=== PATIENT | female | born 1960 | race American Indian/Alaskan Native ===

== ENCOUNTER 2017-06-28 10:12 | Outpatient (CLI) | payer MEDICARE ==
[2017-06-28] MEDS ORDERED: XYLOCAINE TOPICAL 4% TP ONE ×2 (11:29→12:00)
[2017-06-28] MEDS ORDERED: SILVER NITRATE TP ONE ×2 (12:10→13:04)
== END 2017-06-28 10:13 | disposition home or self-care (01) ==
LOC: WOUND 10:12
PROVIDERS: ATTEND Surgery
DX: E11.621 Type 2 diabetes mellitus with foot ulcer (principal); L97.422 Non-pressure chronic ulcer of left heel and midfoot with fat layer exposed; L97.521 Non-pressure chronic ulcer of other part of left foot limited to breakdown of skin; E11.622 Type 2 diabetes mellitus with other skin ulcer; L97.211 Non-pressure chronic ulcer of right calf limited to breakdown of skin; I70.232 Atherosclerosis of native arteries of right leg with ulceration of calf; E11.22 Type 2 diabetes mellitus with diabetic chronic kidney disease; I12.0 Hypertensive chronic kidney disease with stage 5 chronic kidney disease or end stage renal disease; N18.6 End stage renal disease; Z90.710 Acquired absence of both cervix and uterus; Z99.2 Dependence on renal dialysis
CPT/HCPCS: 11042; 11045; 97597; 97598; G0463

== ENCOUNTER 2017-10-12 14:24 | Inpatient (IN) | payer MEDICARE, OTHER ==
--- NOTE | 2017-10-12 15:22 | Emergency Department Report ---
HPI - General Chief Complaint: Altered Mental Status Time Seen by Provider: 10/12/17 14:56 - HPI HPI: 57-year-old female presents to the emergency department via EMS from her dialysis clinic with complaint of altered mental status. Allegedly the patient was last known normal about 8 AM. She has a history of hypertension, diabetes, peripheral vascular disease, end-stage renal disease on hemodialysis on Tuesday/Tuesday/Tuesday. Now the patient did not receive dialysis however her left upper extremity dialysis fistula has a pressure dressing on it as if it was used. The patient herself is very fatigued but is arousable to tactile stimuli. However when she is awake she is nonverbal and is a poor historian. There are previous records that the patient was here in June of this year and was conversant at that time. 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 ED Past Medical Hx - Past Medical History Previous Medical History?: Yes Hx Hypertension: Yes Hx CVA: Yes Hx Congestive Heart Failure: No Hx Diabetes: Yes Hx Renal Disease: Yes Hx Asthma: No Hx COPD: No Additional medical history: unspecified AMS. PVD - Surgical History Past Surgical History?: Yes Additional Surgical History: Left arm shunt, left foot surgery, hysterectomy. - Social History Smoking Status: Unknown if ever smoked - Medications Home Medications: Home Medications Medication Instructions Recorded Confirmed Last Taken Type Insulin Glargine,Hum.rec.anlog 20 units SQ QHS 06/23/17 10/12/17 Unknown History [Lantus] cloNIDine [Catapres] 0.1 mg PO TID PRN 06/23/17 10/12/17 Unknown History ALBUTEROL NEB's [Proventil 0.083% 2.5 mg IH Q4HRT PRN nebu 06/25/17 10/12/17 Unknown Rx NEBS] Carvedilol [Coreg] 12.5 mg PO DAILY tablet 06/25/17 10/12/17 Unknown Rx HYDROcodone/APAP 7.5-325 [[place] 1 each PO Q6H PRN #30 tablet 06/25/17 10/12/17 Unknown Rx 7.5-325 mg TAB] NIFEdipine [Nifedipine ER] 60 mg PO BID #60 tab.er.24 06/25/17 10/12/17 Unknown Rx Zolpidem [Ambien] 10 mg PO QHS #15 tablet 06/25/17 10/12/17 Unknown Rx ED Review of Systems ROS: Stated complaint: UNRESPONSIVE Other details as noted in HPI Comment: Unobtainable due to pts medical conditions Physical Exam - Physical Exam Vital Signs: Vital Signs 10/12/17 10/12/17 10/12/17 14:42 14:46 14:47 Temperature 97.1 F L Pulse Rate 80 80 Respiratory 12 12 Rate Blood Pressure 201/81 201/81 201/81 O2 Sat by Pulse 99 99 Oximetry Physical Exam: GENERAL: Patient is ill-appearing. HENT: Normocephalic. Atraumatic. Patient has moist mucous membranes. EYES: Pupils equal reactive to light bilaterally. NECK: Supple. No meningitic signs are noted. There is no adenopathy noted. CHEST/LUNGS: Clear to auscultation. There is no respiratory distress noted. HEART/CARDIOVASCULAR: Regular. There is no tachycardia. There is no murmur. ABDOMEN: Abdomen is soft, nontender. Patient has normal bowel sounds. SKIN: Skin is warm and dry. 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 NEURO: Patient is sleeping but is arousable to tactile and verbal stimuli. She will say a few words, some of which appears hard to comprehend. Does not follow commands. Withdraws from painful stimuli. MUSCULOSKELETAL: There is no tenderness or obvious deformity. ED Course Vital Signs 10/12/17 10/12/17 10/12/17 14:42 14:46 14:47 Temperature 97.1 F L Pulse Rate 80 80 Respiratory 12 12 Rate Blood Pressure 201/81 201/81 201/81 O2 Sat by Pulse 99 99 Oximetry - Reevaluation(s) Reevaluation #1: 10/12/17 19:06 NIH Stroke Scale/Score (NIHSS) from Ruby [email or web address] on 10/12/2017 All calculations should be rechecked by clinician prior to use RESULT SUMMARY: 13 points NIH Stroke Scale INPUTS: 1A: Level of consciousness > 2 = Requires repeated stimulation to arouse 1B: Ask month and age > 2 = Aphasic 1C: 'Blink eyes' & 'squeeze hands' > 2 = Performs 0 tasks 2: Horizontal extraocular movements > 0 = Normal 3: Visual quijano > 0 = No visual loss 4: Facial palsy > 0 = Normal symmetry 5A: Left arm motor drift > 0 = No drift for 10 seconds 5B: Right arm motor drift > 0 = No drift for 10 seconds 6A: Left leg motor drift > 0 = No drift for 5 seconds 6B: Right leg motor drift > 0 = No drift for 5 seconds 7: Limb Ataxia > 0 = No ataxia 8: Sensation > 2 = Coma/unresponsive 9: Language/aphasia > 3 = Mute/global aphasia: no usable speech/auditory comprehension 10: Dysarthria > 2 = Mute/anarthric 11: Extinction/inattention > 0 = No abnormality The NIH stroke scale is not particularly valid in this patient as she is altered and does not follow many commands. The patient also appears to be outside any window for TPA as she has been in the emergency department since about 2:30 PM and as far as we know the last known well time was sometime before dialysis, 8 AM this morning. 10/12/17 19:07 ED Medical Decision Making - Lab Data Result diagrams: 10/12/17 15:08 10/13/17 04:25 - EKG Data -: EKG Interpreted by Me EKG shows normal: sinus rhythm, axis, intervals (prolonged QT and QTC intervals) , QRS complexes (incomplete left bundle branch block, LVH), ST-T waves Rate: normal - EKG Data When compared to previous EKG there are: previous EKG unavailable Interpretation: other (sinus rhythm, incomplete left bundle branch block, LVH, prolonged QT and QTC intervals) - Radiology Data Radiology results: report reviewed EXAM: CT HEAD/BRAIN WO CON HISTORY: AMS COMPARISON: None. TECHNIQUE: Multiple contiguous axial images were obtained from the skullbase to the vertex without administration of IV contrast. FINDINGS: There is no parenchymal hemorrhage or extra-axial fluid collection. There is no mass or mass effect. There is no acute territorial infarct. There is cerebral cortical atrophy which is mildly advanced for the patient's age. There are patchy areas of decreased attenuation in the subcortical and periventricular white matter, likely due to chronic microvascular ischemic changes. There is an old lacunar infarct in the left basal ganglia. The ventricles are midline. The subarachnoid spaces are clear. There is no skull fracture. There is opacification of the right sphenoid sinus with thickening of the surrounding bone. The bilateral orbits are intact. IMPRESSION: No acute intracranial abnormality. Chronic microvascular ischemic changes in the subcortical and periventricular white matter. Old lacunar infarct in the left basal ganglia. Opacification of the right sphenoid sinus with thickening of the surrounding bone, likely due to chronic sinusitis. Transcribed By: WELLINGTON Dictated By: IGOR SMALL MD Electronically Authenticated By: IGOR SMALL MD Signed Date/Time: 10/12/17 6009 - Medical Decision Making The patient originally came in for what appeared to be some altered mental status. The last known well time was really unknown as we had gotten report that it was at 8 AM but EMS was not called until about one or 2 PM. We also are not sure whether or not the patient completed dialysis but she does have a pressure dressing to the left arm and her labs do not show any significant hyperkalemia or severe elevation in creatinine would see in a dialysis patient. The patient's mentation waxes and wanes but she is always remained altered or confused. Some moments she appears to be able to nod her head, use hand gestures to communicate or even sometimes say a few words. At other times the patient appears unable to respond but does have spontaneous eye opening. The patient presented with this altered mental status as well as very elevated blood pressure so a stat CT scan of the head without contrast was done upon arrival that resulted as no acute process including no ischemia, shift, mass, bleeding. The labs show the obvious end-stage renal disease but there is no hyperkalemia. The patient does make some urine and it had a very cloudy color concerning for infection. The urinalysis does show a significant urinary tract infection. It is possible that the patient's altered mental status is metabolic encephalopathy. However I still spoke with the telemedicine neurologist who says that the patient does not appear to show any specific lateralizing features and therefore CT angiography of the head and neck is not necessary but he would recommend an MRI of possible upon admission. Blood and urine cultures were sent and the patient was started on antibiotics for her urinary tract infection. The case was discussed with the admitting hospitalist , Dr. Gutierrez, who accepted the patient to his service. - Differential Diagnosis CVA, TIA, metabolic encephalopathy, sepsis Critical Care Time: No Critical care attestation.: If time is entered above; I have spent that time in minutes in the direct care of this critically ill patient, excluding procedure time. ED Disposition Clinical Impression: ESRD on dialysis, Encephalopathy acute, Hypertensive urgency Altered mental status Qualifiers: Altered mental status type: unspecified Qualified Code(s): R41.82 - Altered mental status, unspecified UTI (urinary tract infection) Qualifiers: Urinary tract infection type: acute cystitis Hematuria presence: with hematuria Qualified Code(s): N30.01 - Acute cystitis with hematuria Disposition: OP ADMIT IP TO THIS HOSP Is pt being admited?: Yes Condition: Fair Time of Disposition: 18:20
--- NOTE | 2017-10-12 15:54 | Cat Scan Report ---
FINAL REPORT EXAM: CT HEAD/BRAIN WO CON HISTORY: AMS COMPARISON: None. TECHNIQUE: Multiple contiguous axial images were obtained from the skullbase to the vertex without administration of IV contrast. FINDINGS: There is no parenchymal hemorrhage or extra-axial fluid collection. There is no mass or mass effect. There is no acute territorial infarct. There is cerebral cortical atrophy which is mildly advanced for the patient's age. There are patchy areas of decreased attenuation in the subcortical and periventricular white matter, likely due to chronic microvascular ischemic changes. There is an old lacunar infarct in the left basal ganglia. The ventricles are midline. The subarachnoid spaces are clear. There is no skull fracture. There is opacification of the right sphenoid sinus with thickening of the surrounding bone. The bilateral orbits are intact. IMPRESSION: No acute intracranial abnormality. Chronic microvascular ischemic changes in the subcortical and periventricular white matter. Old lacunar infarct in the left basal ganglia. Opacification of the right sphenoid sinus with thickening of the surrounding bone, likely due to chronic sinusitis.
[2017-10-12 16:01] LABS: Albumin 3.3 g/dL (3.9-5); BUN/Creatinine Ratio 6; Blood Urea Nitrogen 28 mg/dL (7-17); Hemolysis Index 22
[2017-10-12 16:10] LABS: Alanine Aminotransferase < 5 units/L (7-56)
[2017-10-12 16:16] LABS: Basophils # (Auto) 0.1 K/mm3 (0.0-0.1); Basophils % (Auto) 0.7 % (0.0-1.8); Eosinophils # (Auto) 0.2 K/mm3 (0.0-0.4); Eosinophils % (Auto) 2.9 % (0.0-4.3); Hematocrit 30.4 % (30.3-42.9); Hemoglobin 9.9 gm/dl (10.1-14.3); Lymphocytes # (Auto) 1.2 K/mm3 (1.2-5.4); Lymphocytes % (Auto) 14.5 % (13.4-35.0); Mean Corpuscular HGB Conc 33 % (30-34); Mean Corpuscular Hemoglobin 29 pg (28-32); Mean Corpuscular Volume 90 fl (79-97); Monocytes # (Auto) 0.6 K/mm3 (0.0-0.8); Monocytes % (Auto) 7.2 % (0.0-7.3); Platelet Count 289 K/mm3 (140-440); Red Blood Count 3.38 M/mm3 (3.65-5.03); Red Cell Distribution Width 18.6 % (13.2-15.2)
[2017-10-12] MEDS ORDERED: APRESOLINE IV ONE ×2 (16:24→18:06)
[2017-10-12 17:06] LABS: Amphetamine Screen,Urine PRESUMPTIVE NEGATIVE; Benzodiazepines Screen,Urine PRESUMPTIVE NEGATIVE; Cannabinoid Screen,Urine PRESUMPTIVE NEGATIVE; Cocaine Screen,Urine PRESUMPTIVE NEGATIVE; Methadone Screen,Urine PRESUMPTIVE NEGATIVE; Opiate Screen,Urine PRESUMPTIVE NEGATIVE
[2017-10-12 17:08] LABS: Bacteria,Urine 2+ /HPF (Negative); Bilirubin,Urine NEG (Negative); Blood,Urine MOD (Negative); Color,Urine Yellow (Yellow); Urobilinogen,Urine < 2.0 mg/dL (<2.0); WBC,Urine > 182.0 /HPF (0.0-6.0)
[2017-10-12] MEDS ORDERED: LEVAQUIN 750MG/150ML 750 MG/150 ML BAG IV ONE (17:18)
[2017-10-12] MEDS ORDERED: ROCEPHIN/NS 1 GM/50 ML 1 GM/50 ML BAG IV ONE (19:01)
[2017-10-12] MEDS ORDERED: NORMODYNE IV ONE (19:27)
[2017-10-12] MEDS ORDERED: cefTRIAXone 1 GM in NACL 0.9% 20 ML IV ONE (20:00)
--- NOTE | 2017-10-13 01:36 | Event Note ---
Date: 10/12/17 See dictated H/p in reports
[2017-10-13] MEDS ORDERED: CATAPRES PO PRN (01:37)
[2017-10-13] MEDS ORDERED: ZOFRAN IV PRN ×2 (01:38→01:43)
[2017-10-13] MEDS ORDERED: TYLENOL PO PRN ×2 (01:38→01:43)
[2017-10-13] MEDS ORDERED: SODIUM CHLORIDE FLUSH SYRINGE 10 ML IV PRN (01:43)
[2017-10-13] MEDS ORDERED: D50W (25GM) Syringe IV PRN (01:43)
[2017-10-13] MEDS: PROCARDIA XL PO SCH ×3 (02:05→22:58)
--- NOTE | 2017-10-13 02:07 | History and Physical Report ---
CHIEF COMPLAINT: Altered mental status since a.m. HISTORY OF PRESENT ILLNESS: This is a 57-year-old -[place] female who comes in for altered mental status by EMS from dialysis clinic. The patient was last known normal at 8 a.m. The patient has history of hypertension, diabetes, peripheral vascular disease, end-stage renal disease. The patient did not receive dialysis for a long time. The patient is nonverbal and poor historian. The patient was in the Emergency Room in June and was able to make conversation at that time. The patient has a right lower extremity amputation below the knee. PAST MEDICAL HISTORY: Significant for hypertension, cerebrovascular accident, diabetes, end-stage renal disease, peripheral vascular disease. PAST SURGICAL HISTORY: 1. Left foot surgery 2. Right BKA. 3. Hysterectomy. SOCIAL HISTORY: He does not smoke. No alcohol, no recreational drugs. FAMILY HISTORY: Hypertension. CURRENT MEDICATIONS: Lantus 20 units subcutaneous at bedtime, clonidine 0.1 t.i.d., carvedilol 12.5 daily, and nifedipine 60 mg twice a day. REVIEW OF SYSTEMS: Significant for altered sensorium and decreased responsiveness. Otherwise, review of systems is essentially negative. A 14-point review of systems done. PHYSICAL EXAMINATION: GENERAL: Middle-aged female, cooperative during examination. VITAL SIGNS: Blood pressure is 201/81, temperature is 97.1, pulse is 80, and respirations are 12. HEENT: Unremarkable. Pupils equal and reactive. NECK: Supple, no lymphadenopathy, no thyromegaly. LUNGS: Clear to auscultation and percussion. Good air entry. CARDIOVASCULAR: S1, S2 heard, decreased responsiveness. EXTREMITIES: Right BKA present. LABORATORY DATA: CT of the head shows chronic microvascular ischemic changes in the subcortical and periventricular white matter. Old lacunar infarct in the left basal ganglia. Labs are significant for white count of 8500, H and H of 9.9 and 30.4, platelet count of 289,000. BUN and creatinine 28 and 4.4. Alkaline phosphatase is 144. TSH is slightly high at 5.89. Urine shows more than 182 cells. ASSESSMENT AND PLAN: 1. Acute encephalopathy, probably secondary to sepsis and urinary tract infection. Treat with intravenous Rocephin. A 1 g intravenous piggyback every 24. 2. Urinary tract infection, on Rocephin. 3. Sepsis, Rocephin 1 g intravenous piggyback every 24, pending cultures. 4. End-stage renal disease, on dialysis, continue dialysis. 5. Hypertension, continue Coreg. 6. Insulin-dependent diabetes, continue insulin. 7. Deep venous thrombosis prophylaxis, heparin 5000 every 12. JOB# [id number] JOHN/NTS
[2017-10-13 06:48] LABS: Calcium 9.7 mg/dL (8.4-10.2)
[2017-10-13] MEDS: APRESOLINE IV PRN ×3 (06:53→23:03)
[2017-10-13] MEDS: SODIUM CHLORIDE FLUSH SYRINGE 10 ML IV PRN ×2 (06:56→10:26)
[2017-10-13] MEDS ORDERED: SODIUM CHLORIDE FLUSH SYRINGE 10 ML IV SCH (10:00)
[2017-10-13] MEDS: HumaLOG SUB-Q SCH ×4 (10:20→22:46)
[2017-10-13] MEDS: COREG PO SCH (10:21)
[2017-10-13] MEDS: cefTRIAXone 1 GM in NACL 0.9% 20 ML IV SCH (10:21)
--- NOTE | 2017-10-13 10:21 | Progress Note ---
<TY ARMENDARIZ - Last Filed: 10/13/17 14:31> Assessment and Plan Assessment and plan: Patient is a 57-year-old -Thai woman who presented to the emergency department with complaints of altered mental status by EMS from dialysis clinic. Acute encephalopathy Etiology is likely secondary to sepstic UTI. Patient will continue IV antibiotics Sepsis secondary to UTI Presenting with altered mental status and tachycardia. Patient will continue IV antibiotics. Follow urine culture End-stage renal disease on hemodialysis Nephrology consulted Hypertension Continue antihypertensives Insulin-dependent diabetes ADA diet, Accu-Cheks before meals and at bedtime, sliding scale insulin DVT prophylaxis SCD History Interval history: Patient seen and examined with daughter at bedside. She is responsive to verbal and tactile stimulus, opens her eyes, remains nonverbal, not following commands. Labs, chart notes, nursing notes reviewed. Hospitalist Physical - Physical exam Narrative exam: General appearance: Present: no acute distress, well-nourished - EENT Eyes: Present: PERRL, EOM intact ENT: hearing intact, clear oral mucosa - Neck Present: supple, normal ROM - Respiratory Respiratory effort: normal Respiratory: bilateral: CTA - Cardiovascular Rhythm: regular Heart Sounds: Present: S1 & S2 Absent: Murmur, rubs, clicks - Extremities Extremities: no ischemia, No edema, right AKA - Abdominal General gastrointestinal: soft, non-tender, non-distended, normal bowel sounds - Integumentary Integumentary: Present: warm, dry - Psychiatric Psychiatric: Unable to assess - Neurologic Neurologic: Unable to assess - Constitutional Vitals: Temp Pulse Resp BP Pulse Ox 99.7 F H 91 H 20 198/40 97 10/13/17 07:20 10/13/17 07:20 10/13/17 07:20 10/13/17 07:20 10/13/17 07:20 Results - Labs CBC & Chem 7: 10/12/17 15:08 10/13/17 04:25 Labs: Laboratory Last Values WBC 8.5 K/mm3 (4.5-11.0) 10/12/17 15:08 RBC 3.38 M/mm3 (3.65-5.03) L 10/12/17 15:08 Hgb 9.9 gm/dl (10.1-14.3) L 10/12/17 15:08 Hct 30.4 % (30.3-42.9) 10/12/17 15:08 MCV 90 fl (79-97) 10/12/17 15:08 MCH 29 pg (28-32) 10/12/17 15:08 MCHC 33 % (30-34) 10/12/17 15:08 RDW 18.6 % (13.2-15.2) H 10/12/17 15:08 Plt Count 289 K/mm3 (140-440) 10/12/17 15:08 Lymph % (Auto) 14.5 % (13.4-35.0) 10/12/17 15:08 [place] % (Auto) 7.2 % (0.0-7.3) 10/12/17 15:08 Eos % (Auto) 2.9 % (0.0-4.3) 10/12/17 15:08 Baso % (Auto) 0.7 % (0.0-1.8) 10/12/17 15:08 Lymph # 1.2 K/mm3 (1.2-5.4) 10/12/17 15:08 [place] # 0.6 K/mm3 (0.0-0.8) 10/12/17 15:08 Eos # 0.2 K/mm3 (0.0-0.4) 10/12/17 15:08 Baso # 0.1 K/mm3 (0.0-0.1) 10/12/17 15:08 Seg Neutrophils % 74.7 % (40.0-70.0) H 10/12/17 15:08 Seg Neutrophils # 6.3 K/mm3 (1.8-7.7) 10/12/17 15:08 Sodium 139 mmol/L (137-145) 10/13/17 04:25 Potassium 4.1 mmol/L (3.6-5.0) 10/13/17 04:25 Chloride 98.3 mmol/L (98-107) 10/13/17 04:25 Carbon Dioxide 25 mmol/L (22-30) 10/13/17 04:25 Anion Gap 20 mmol/L 10/13/17 04:25 BUN 34 mg/dL (7-17) H 10/13/17 04:25 Creatinine 5.5 mg/dL (0.7-1.2) H 10/13/17 04:25 Estimated GFR 10 ml/min 10/13/17 04:25 BUN/Creatinine Ratio 6 % 10/13/17 04:25 Glucose 124 mg/dL (65-100) H 10/13/17 04:25 POC Glucose 128 (70-105) H 10/13/17 06:02 Hemoglobin A1c 5.6 % (4-6) 10/13/17 04:25 Lactic Acid 0.80 mmol/L (0.7-2.0) 10/12/17 17:37 Calcium 9.7 mg/dL (8.4-10.2) 10/13/17 04:25 Total Bilirubin 0.30 mg/dL (0.1-1.2) 10/12/17 15:08 AST 11 units/L (5-40) 10/12/17 15:08 ALT < 5 units/L (7-56) L 10/12/17 15:08 Alkaline Phosphatase 144 units/L (35-129) H 10/12/17 15:08 Total Protein 7.3 g/dL (6.3-8.2) 10/12/17 15:08 Albumin 3.3 g/dL (3.9-5) L 10/12/17 15:08 Albumin/Globulin Ratio 0.8 % 10/12/17 15:08 TSH 5.890 mlU/mL (0.270-4.200) H 10/12/17 15:08 Urine Color Yellow (Yellow) 10/12/17 16:27 Urine Turbidity Cloudy (Clear) 10/12/17 16:27 Urine pH 6.0 (5.0-7.0) 10/12/17 16:27 Ur Specific [place] 1.018 (1.003-1.030) 10/12/17 16:27 Urine Protein 100 mg/dl mg/dL (Negative) 10/12/17 16:27 Urine Glucose (UA) Neg mg/dL (Negative) 10/12/17 16:27 Urine Ketones Neg mg/dL (Negative) 10/12/17 16:27 Urine Blood Mod (Negative) 10/12/17 16:27 Urine Nitrite Neg (Negative) 10/12/17 16:27 Urine Bilirubin Neg (Negative) 10/12/17 16:27 Urine Urobilinogen < 2.0 mg/dL (<2.0) 10/12/17 16:27 Ur Leukocyte Esterase Mod (Negative) 10/12/17 16:27 Urine WBC (Auto) > 182.0 /HPF (0.0-6.0) H 10/12/17 16:27 Urine RBC (Auto) 105.0 /HPF (0.0-6.0) 10/12/17 16:27 U Epithel Cells (Auto) 59.0 /HPF (0-13.0) H 10/12/17 16:27 Urine Bacteria (Auto) 2+ /HPF (Negative) 10/12/17 16:27 Urine WBC Clumps 3+ /HPF 10/12/17 16:27 Urine Opiates Screen Presumptive negative 10/12/17 16:27 Urine Methadone Screen Presumptive negative 10/12/17 16:27 Ur Barbiturates Screen Presumptive negative 10/12/17 16:27 Ur Phencyclidine Scrn Presumptive negative 10/12/17 16:27 Ur Amphetamines Screen Presumptive negative 10/12/17 16:27 U Benzodiazepines Scrn Presumptive negative 10/12/17 16:27 Urine Cocaine Screen Presumptive negative 10/12/17 16:27 U Marijuana (THC) Screen Presumptive negative 10/12/17 16:27 Drugs of Abuse Note Disclamer 10/12/17 16:27 Plasma/Serum Alcohol < 0.01 % (0-0.07) 10/12/17 15:08 <CAMMIE HERNADEZ - Last Filed: 10/13/17 18:43> Assessment and Plan Assessment and plan: I saw and evaluated the patient. I agree with the findings and the plan of care as documented in the Nurse Practitioner's~note, with the following corrections and additions. Patient with encephalopathy, sepsis, UTI. Continue current management Hospitalist Physical - Constitutional Vitals: Temp Pulse Resp BP Pulse Ox 98.6 F 92 H 20 184/50 100 10/13/17 17:14 10/13/17 18:10 10/13/17 17:14 10/13/17 18:10 10/13/17 17:14 Results - Labs CBC & Chem 7: 10/12/17 15:08 10/13/17 04:25 Labs: Laboratory Last Values WBC 8.5 K/mm3 (4.5-11.0) 10/12/17 15:08 RBC 3.38 M/mm3 (3.65-5.03) L 10/12/17 15:08 Hgb 9.9 gm/dl (10.1-14.3) L 10/12/17 15:08 Hct 30.4 % (30.3-42.9) 10/12/17 15:08 MCV 90 fl (79-97) 10/12/17 15:08 MCH 29 pg (28-32) 10/12/17 15:08 MCHC 33 % (30-34) 10/12/17 15:08 RDW 18.6 % (13.2-15.2) H 10/12/17 15:08 Plt Count 289 K/mm3 (140-440) 10/12/17 15:08 Lymph % (Auto) 14.5 % (13.4-35.0) 10/12/17 15:08 [place] % (Auto) 7.2 % (0.0-7.3) 10/12/17 15:08 Eos % (Auto) 2.9 % (0.0-4.3) 10/12/17 15:08 Baso % (Auto) 0.7 % (0.0-1.8) 10/12/17 15:08 Lymph # 1.2 K/mm3 (1.2-5.4) 10/12/17 15:08 [place] # 0.6 K/mm3 (0.0-0.8) 10/12/17 15:08 Eos # 0.2 K/mm3 (0.0-0.4) 10/12/17 15:08 Baso # 0.1 K/mm3 (0.0-0.1) 10/12/17 15:08 Seg Neutrophils % 74.7 % (40.0-70.0) H 10/12/17 15:08 Seg Neutrophils # 6.3 K/mm3 (1.8-7.7) 10/12/17 15:08 Sodium 139 mmol/L (137-145) 10/13/17 04:25 Potassium 4.1 mmol/L (3.6-5.0) 10/13/17 04:25 Chloride 98.3 mmol/L (98-107) 10/13/17 04:25 Carbon Dioxide 25 mmol/L (22-30) 10/13/17 04:25 Anion Gap 20 mmol/L 10/13/17 04:25 BUN 34 mg/dL (7-17) H 10/13/17 04:25 Creatinine 5.5 mg/dL (0.7-1.2) H 10/13/17 04:25 Estimated GFR 10 ml/min 10/13/17 04:25 BUN/Creatinine Ratio 6 % 10/13/17 04:25 Glucose 124 mg/dL (65-100) H 10/13/17 04:25 POC Glucose 163 (70-105) H 10/13/17 17:03 Hemoglobin A1c 5.6 % (4-6) 10/13/17 04:25 Lactic Acid 0.80 mmol/L (0.7-2.0) 10/12/17 17:37 Calcium 9.7 mg/dL (8.4-10.2) 10/13/17 04:25 Total Bilirubin 0.30 mg/dL (0.1-1.2) 10/12/17 15:08 AST 11 units/L (5-40) 10/12/17 15:08 ALT < 5 units/L (7-56) L 10/12/17 15:08 Alkaline Phosphatase 144 units/L (35-129) H 10/12/17 15:08 Total Protein 7.3 g/dL (6.3-8.2) 10/12/17 15:08 Albumin 3.3 g/dL (3.9-5) L 10/12/17 15:08 Albumin/Globulin Ratio 0.8 % 10/12/17 15:08 TSH 5.890 mlU/mL (0.270-4.200) H 10/12/17 15:08 Free T4 1.35 ng/dL (0.76-1.46) 10/13/17 11:10 Urine Color Yellow (Yellow) 10/12/17 16:27 Urine Turbidity Cloudy (Clear) 10/12/17 16:27 Urine pH 6.0 (5.0-7.0) 10/12/17 16:27 Ur Specific [place] 1.018 (1.003-1.030) 10/12/17 16:27 Urine Protein 100 mg/dl mg/dL (Negative) 10/12/17 16:27 Urine Glucose (UA) Neg mg/dL (Negative) 10/12/17 16:27 Urine Ketones Neg mg/dL (Negative) 10/12/17 16:27 Urine Blood Mod (Negative) 10/12/17 16:27 Urine Nitrite Neg (Negative) 10/12/17 16:27 Urine Bilirubin Neg (Negative) 10/12/17 16:27 Urine Urobilinogen < 2.0 mg/dL (<2.0) 10/12/17 16:27 Ur Leukocyte Esterase Mod (Negative) 10/12/17 16:27 Urine WBC (Auto) > 182.0 /HPF (0.0-6.0) H 10/12/17 16:27 Urine RBC (Auto) 105.0 /HPF (0.0-6.0) 10/12/17 16:27 U Epithel Cells (Auto) 59.0 /HPF (0-13.0) H 10/12/17 16:27 Urine Bacteria (Auto) 2+ /HPF (Negative) 10/12/17 16:27 Urine WBC Clumps 3+ /HPF 10/12/17 16:27 Urine Opiates Screen Presumptive negative 10/12/17 16:27 Urine Methadone Screen Presumptive negative 10/12/17 16:27 Ur Barbiturates Screen Presumptive negative 10/12/17 16:27 Ur Phencyclidine Scrn Presumptive negative 10/12/17 16:27 Ur Amphetamines Screen Presumptive negative 10/12/17 16:27 U Benzodiazepines Scrn Presumptive negative 10/12/17 16:27 Urine Cocaine Screen Presumptive negative 10/12/17 16:27 U Marijuana (THC) Screen Presumptive negative 10/12/17 16:27 Drugs of Abuse Note Disclamer 10/12/17 16:27 Plasma/Serum Alcohol < 0.01 % (0-0.07) 10/12/17 15:08
[2017-10-13] MEDS: SODIUM CHLORIDE FLUSH SYRINGE 10 ML IV SCH ×2 (10:23→22:49)
[2017-10-13] MEDS ORDERED: PROCRIT IV PRN (19:56)
[2017-10-13] MEDS ORDERED: HEPARIN 10,000 UNITS/10 ML IV PRN (19:56)
[2017-10-13] MEDS ORDERED: NACL 0.9% 100 ML IV PRN (19:56)
--- NOTE | 2017-10-13 20:04 | Consultation ---
History of Present Illness - Reason for Consult Consult date: 10/13/17 end stage renal disease Requesting physician: LUDIVINA HENDRICKSON - History of Present Illness 57-year-old who is not a patient of my practice, with type 2 diabetes mellitus, hypertension, End stage renal disease on hemodialysis Tuesday, Tuesday and Tuesday schedule. Patient was brought to the hospital due to altered mental status. She was sent from the dialysis clinic. Records from the dialysis clinic are not available from review and she is nonverbal and so unable to give a history. History is obtained from my review of the hospital records Past History Past Medical History: diabetes, ESRD, hypertension, PVD Past Surgical History: hysterectomy, Other (left upper extremity AV fistula, left foot surgery, right below knee amputation) Social history: other (unable to obtain) Family history: other (unable to obtain) Medications and Allergies Allergies Allergy/AdvReac Type Severity Reaction Status Date / Time No Known Allergies Allergy Verified 06/22/17 11:30 Home Medications Medication Instructions Recorded Confirmed Last Taken Type Insulin Glargine,Hum.rec.anlog 20 units SQ QHS 06/23/17 10/12/17 Unknown History [Lantus] cloNIDine [Catapres] 0.1 mg PO TID PRN 06/23/17 10/12/17 Unknown History ALBUTEROL NEB's [Proventil 0.083% 2.5 mg IH Q4HRT PRN nebu 06/25/17 10/12/17 Unknown Rx NEBS] Carvedilol [Coreg] 12.5 mg PO DAILY tablet 06/25/17 10/12/17 Unknown Rx HYDROcodone/APAP 7.5-325 [[place] 1 each PO Q6H PRN #30 tablet 06/25/17 10/12/17 Unknown Rx 7.5-325 mg TAB] NIFEdipine [Nifedipine ER] 60 mg PO BID #60 tab.er.24 06/25/17 10/12/17 Unknown Rx Zolpidem [Ambien] 10 mg PO QHS #15 tablet 06/25/17 10/12/17 Unknown Rx Active Meds: Active Medications Acetaminophen (Tylenol) 650 mg PO Q4H PRN PRN Reason: Pain MILD(1-3)/Fever >100.5/ESTEBAN Carvedilol (Coreg) 12.5 mg PO DAILY [facility] Last Admin: 10/13/17 10:21 Dose: Not Given Clonidine HCl (Catapres) 0.1 mg PO TID PRN PRN Reason: Hypertension Dextrose (D50w (25gm) Syringe) 50 ml IV PRN PRN PRN Reason: Hypoglycemia Hydralazine HCl (Apresoline) 5 mg IV Q6H PRN PRN Reason: Hypertension Last Admin: 10/13/17 18:10 Dose: 5 mg Ceftriaxone Sodium 1 gm/ (Sodium Chloride) 20 mls @ 20 mls/10 min IV Q24HR [facility] ; Protocol Last Admin: 10/13/17 10:21 Dose: 20 mls/10 min Insulin Glargine (Lantus) 20 units SUB-Q QHS [facility] Insulin Human Lispro (Humalog) 0 unit SUB-Q ACHS [facility]; Protocol Last Admin: 10/13/17 17:41 Dose: Not Given Morphine Sulfate (Morphine) 2 mg IV Q4H PRN PRN Reason: Pain, Moderate (4-6) Nifedipine (Procardia Xl) 60 mg PO BID [facility] Last Admin: 10/13/17 10:22 Dose: Not Given Ondansetron HCl (Zofran) 4 mg IV Q8H PRN PRN Reason: Nausea And Vomiting Sodium Chloride (Sodium Chloride Flush Syringe 10 Ml) 10 ml IV PRN PRN PRN Reason: LINE FLUSH Last Admin: 10/13/17 10:26 Dose: 10 ml Sodium Chloride (Sodium Chloride Flush Syringe 10 Ml) 10 ml IV BID [facility] Last Admin: 10/13/17 10:23 Dose: 10 ml Zolpidem Tartrate (Ambien) 10 mg PO QHS [facility] Review of Systems ROS unobtainable: due to mental status Exam - Vital Signs Vital signs: Vital Signs BP 201/81 10/12/17 14:42 - Physical Exam Narrative exam: Middle aged -[place] female lying in bed in no acute distress HEENT: NCAT, drooling from the left angle of her mouth Neck: Supple, no venous distention CVS: S1S2 RRR with no murmur, rub or gallop Chest: Clear to auscultation Abdomen: Protuberant, soft, nontender, no organomegaly, bowel sounds are present Extremities: No edema, right below knee amputation with kasandra intact Skin warm and dry, no rash Neuro: Eyes open, nonverbal, not following commands Results - Lab Results 10/12/17 15:08 10/13/17 04:25 Most recent lab results Calcium 9.7 mg/dL (8.4-10.2) 10/13/17 04:25 Assessment and Plan - Patient Problems (1) ESRD on dialysis Current Visit: Yes Status: Acute Plan to address problem: Electrolytes and volume status stable. Hemodialysis again tomorrow. Give Erythropoetin on dialysis. (2) Encephalopathy acute Current Visit: Yes Status: Acute Plan to address problem: Suspect toxic encephalopathy. Consider for further workup including MRI of the brain if not improving despite antibiotic treatment of urinary tract infection with sepsis (3) UTI (urinary tract infection) Current Visit: Yes Status: Acute Qualifiers: Urinary tract infection type: acute cystitis Hematuria presence: with hematuria Qualified Code(s): N30.01 - Acute cystitis with hematuria Plan to address problem: Urinalysis suggest infection. Urine culture has been done. Follow up culture results. I agree with empiric antibiotics pending the results (4) Anemia in chronic kidney disease Current Visit: No Status: Acute Plan to address problem: Give Erythropoetin on dialysis (5) Hypertensive chronic kidney disease with stage 5 chronic kidney disease or end stage renal disease Current Visit: No Status: Acute Plan to address problem: Continue current medications. Follow blood pressure on current medications (6) Type 2 diabetes mellitus with diabetic chronic kidney disease Current Visit: No Status: Acute Plan to address problem: Blood sugar control by primary attending
[2017-10-13] MEDS ORDERED: ASPIRIN PO STA (21:04)
[2017-10-13] MEDS: AMBIEN PO SCH (22:46)
[2017-10-13] MEDS: LANTUS SUB-Q SCH (22:47)
[2017-10-14] MEDS ORDERED: APRESOLINE IV ONE (01:44)
[2017-10-14] MEDS: SODIUM CHLORIDE FLUSH SYRINGE 10 ML IV PRN (02:00)
[2017-10-14 06:57] LABS: Basophils % (Auto) 0.5 % (0.0-1.8); Eosinophils # (Auto) 0.1 K/mm3 (0.0-0.4); Eosinophils % (Auto) 1.2 % (0.0-4.3); Hemoglobin 9.7 gm/dl (10.1-14.3); Lymphocytes # (Auto) 1.3 K/mm3 (1.2-5.4); Lymphocytes % (Auto) 11.8 % (13.4-35.0); Mean Corpuscular HGB Conc 32 % (30-34); Mean Corpuscular Hemoglobin 29 pg (28-32); Mean Corpuscular Volume 90 fl (79-97); Monocytes % (Auto) 8.9 % (0.0-7.3); Platelet Count 279 K/mm3 (140-440); Red Blood Count 3.35 M/mm3 (3.65-5.03); Red Cell Distribution Width 18.7 % (13.2-15.2)
[2017-10-14 07:18] LABS: BUN/Creatinine Ratio 7; Blood Urea Nitrogen 41 mg/dL (7-17); Calcium 9.4 mg/dL (8.4-10.2); Hemolysis Index 1
[2017-10-14 07:23] LABS: Alanine Aminotransferase < 5 units/L (7-56)
[2017-10-14] MEDS: HumaLOG SUB-Q SCH ×4 (07:53→17:09)
[2017-10-14] MEDS ORDERED: CATAPRES-TTS PATCH TD SCH (10:00)
[2017-10-14] MEDS: cefTRIAXone 1 GM in NACL 0.9% 20 ML IV SCH (10:06)
[2017-10-14] MEDS: ASPIRIN PO SCH (10:06)
[2017-10-14] MEDS: PROCARDIA XL PO SCH ×2 (10:07→22:56)
[2017-10-14] MEDS: SODIUM CHLORIDE FLUSH SYRINGE 10 ML IV SCH ×2 (10:07→22:57)
[2017-10-14] MEDS: COREG PO SCH (10:08)
[2017-10-14] MEDS: MORPHINE IV PRN (11:27)
[2017-10-14] MEDS: LOPRESSOR IV SCH ×2 (11:30→22:56)
--- NOTE | 2017-10-14 12:58 | Progress Note ---
<TY ARMENDARIZ - Last Filed: 10/14/17 14:20> Assessment and Plan Assessment and plan: Patient is a 57-year-old -Citizen Of The [place] woman who presented to the emergency department with complaints of altered mental status by EMS from dialysis clinic. Acute encephalopathy Etiology is likely secondary to sepstic UTI. Patient will continue IV antibiotics MRI ordered today, neurology consulted Sepsis secondary to UTI Presenting with altered mental status and tachycardia. Patient will continue IV antibiotics. Follow urine culture End-stage renal disease on hemodialysis HD today, Nephrology following Hypertension Continue antihypertensives Anemia of chronic dz EPO with HD Insulin-dependent diabetes ADA diet, Accu-Cheks before meals and at bedtime, sliding scale insulin DVT prophylaxis SCD History Interval history: Patient seen and examined with daughter at bedside. She's more alert today, follows with eyes, remains nonverbal, not following commands. Labs, chart notes , nursing notes reviewed. Hospitalist Physical - Physical exam Narrative exam: General appearance: Present: no acute distress, well-nourished - EENT Eyes: Present: PERRL, EOM intact ENT: hearing intact, clear oral mucosa - Neck Present: supple, normal ROM - Respiratory Respiratory effort: normal Respiratory: bilateral: CTA - Cardiovascular Rhythm: regular Heart Sounds: Present: S1 & S2 Absent: Murmur, rubs, clicks - Extremities Extremities: no ischemia, No edema, right AKA - Abdominal General gastrointestinal: soft, non-tender, non-distended, normal bowel sounds - Integumentary Integumentary: Present: warm, dry - Psychiatric Psychiatric: Unable to assess - Neurologic Neurologic: Unable to assess - Constitutional Vitals: Temp Pulse Resp BP Pulse Ox 99.1 F 88 20 188/68 97 10/14/17 07:53 10/14/17 10:00 10/14/17 10:00 10/14/17 10:10 10/14/17 10:00 Results - Labs CBC & Chem 7: 10/14/17 04:37 10/14/17 04:37 Labs: Laboratory Last Values WBC 10.7 K/mm3 (4.5-11.0) 10/14/17 04:37 RBC 3.35 M/mm3 (3.65-5.03) L 10/14/17 04:37 Hgb 9.7 gm/dl (10.1-14.3) L 10/14/17 04:37 Hct 30.0 % (30.3-42.9) L 10/14/17 04:37 MCV 90 fl (79-97) 10/14/17 04:37 MCH 29 pg (28-32) 10/14/17 04:37 MCHC 32 % (30-34) 10/14/17 04:37 RDW 18.7 % (13.2-15.2) H 10/14/17 04:37 Plt Count 279 K/mm3 (140-440) 10/14/17 04:37 Lymph % (Auto) 11.8 % (13.4-35.0) L 10/14/17 04:37 [place] % (Auto) 8.9 % (0.0-7.3) H 10/14/17 04:37 Eos % (Auto) 1.2 % (0.0-4.3) 10/14/17 04:37 Baso % (Auto) 0.5 % (0.0-1.8) 10/14/17 04:37 Lymph # 1.3 K/mm3 (1.2-5.4) 10/14/17 04:37 [place] # 1.0 K/mm3 (0.0-0.8) H 10/14/17 04:37 Eos # 0.1 K/mm3 (0.0-0.4) 10/14/17 04:37 Baso # 0.0 K/mm3 (0.0-0.1) 10/14/17 04:37 Seg Neutrophils % 77.6 % (40.0-70.0) H 10/14/17 04:37 Seg Neutrophils # 8.3 K/mm3 (1.8-7.7) H 10/14/17 04:37 Sodium 141 mmol/L (137-145) 10/14/17 04:37 Potassium 4.5 mmol/L (3.6-5.0) 10/14/17 04:37 Chloride 96.0 mmol/L (98-107) L 10/14/17 04:37 Carbon Dioxide 24 mmol/L (22-30) 10/14/17 04:37 Anion Gap 26 mmol/L 10/14/17 04:37 BUN 41 mg/dL (7-17) H 10/14/17 04:37 Creatinine 6.3 mg/dL (0.7-1.2) H 10/14/17 04:37 Estimated GFR 8 ml/min 10/14/17 04:37 BUN/Creatinine Ratio 7 % 10/14/17 04:37 Glucose 127 mg/dL (65-100) H 10/14/17 04:37 POC Glucose 141 (70-105) H 10/14/17 06:34 Hemoglobin A1c 5.6 % (4-6) 10/13/17 04:25 Lactic Acid 0.80 mmol/L (0.7-2.0) 10/12/17 17:37 Calcium 9.4 mg/dL (8.4-10.2) 10/14/17 04:37 Total Bilirubin 0.30 mg/dL (0.1-1.2) 10/14/17 04:37 AST 10 units/L (5-40) 10/14/17 04:37 ALT < 5 units/L (7-56) L 10/14/17 04:37 Alkaline Phosphatase 115 units/L (35-129) 10/14/17 04:37 Total Protein 6.6 g/dL (6.3-8.2) 10/14/17 04:37 Albumin 3.0 g/dL (3.9-5) L 10/14/17 04:37 Albumin/Globulin Ratio 0.8 % 10/14/17 04:37 TSH 5.890 mlU/mL (0.270-4.200) H 10/12/17 15:08 Free T4 1.35 ng/dL (0.76-1.46) 10/13/17 11:10 Urine Color Yellow (Yellow) 10/12/17 16:27 Urine Turbidity Cloudy (Clear) 10/12/17 16:27 Urine pH 6.0 (5.0-7.0) 10/12/17 16:27 Ur Specific [place] 1.018 (1.003-1.030) 10/12/17 16:27 Urine Protein 100 mg/dl mg/dL (Negative) 10/12/17 16:27 Urine Glucose (UA) Neg mg/dL (Negative) 10/12/17 16:27 Urine Ketones Neg mg/dL (Negative) 10/12/17 16:27 Urine Blood Mod (Negative) 10/12/17 16:27 Urine Nitrite Neg (Negative) 10/12/17 16:27 Urine Bilirubin Neg (Negative) 10/12/17 16:27 Urine Urobilinogen < 2.0 mg/dL (<2.0) 10/12/17 16:27 Ur Leukocyte Esterase Mod (Negative) 10/12/17 16:27 Urine WBC (Auto) > 182.0 /HPF (0.0-6.0) H 10/12/17 16:27 Urine RBC (Auto) 105.0 /HPF (0.0-6.0) 10/12/17 16:27 U Epithel Cells (Auto) 59.0 /HPF (0-13.0) H 10/12/17 16:27 Urine Bacteria (Auto) 2+ /HPF (Negative) 10/12/17 16:27 Urine WBC Clumps 3+ /HPF 10/12/17 16:27 Urine Opiates Screen Presumptive negative 10/12/17 16:27 Urine Methadone Screen Presumptive negative 10/12/17 16:27 Ur Barbiturates Screen Presumptive negative 10/12/17 16:27 Ur Phencyclidine Scrn Presumptive negative 10/12/17 16:27 Ur Amphetamines Screen Presumptive negative 10/12/17 16:27 U Benzodiazepines Scrn Presumptive negative 10/12/17 16:27 Urine Cocaine Screen Presumptive negative 10/12/17 16:27 U Marijuana (THC) Screen Presumptive negative 10/12/17 16:27 Drugs of Abuse Note Disclamer 10/12/17 16:27 Plasma/Serum Alcohol < 0.01 % (0-0.07) 10/12/17 15:08 <CAMMIE HERNADEZ - Last Filed: 10/14/17 19:12> Assessment and Plan Assessment and plan: I saw and evaluated the patient. I agree with the findings and the plan of care as documented in the Nurse Practitioner's~note, with the following corrections and additions. Patient with altered mental status. MRI Brain ordered. Hospitalist Physical - Constitutional Vitals: Temp Pulse Resp BP Pulse Ox 98.8 F 88 20 183/70 100 10/14/17 15:48 10/14/17 15:48 10/14/17 15:48 10/14/17 15:48 10/14/17 15:48 Results - Labs CBC & Chem 7: 10/14/17 04:37 10/14/17 04:37 Labs: Laboratory Last Values WBC 10.7 K/mm3 (4.5-11.0) 10/14/17 04:37 RBC 3.35 M/mm3 (3.65-5.03) L 10/14/17 04:37 Hgb 9.7 gm/dl (10.1-14.3) L 10/14/17 04:37 Hct 30.0 % (30.3-42.9) L 10/14/17 04:37 MCV 90 fl (79-97) 10/14/17 04:37 MCH 29 pg (28-32) 10/14/17 04:37 MCHC 32 % (30-34) 10/14/17 04:37 RDW 18.7 % (13.2-15.2) H 10/14/17 04:37 Plt Count 279 K/mm3 (140-440) 10/14/17 04:37 Lymph % (Auto) 11.8 % (13.4-35.0) L 10/14/17 04:37 [place] % (Auto) 8.9 % (0.0-7.3) H 10/14/17 04:37 Eos % (Auto) 1.2 % (0.0-4.3) 10/14/17 04:37 Baso % (Auto) 0.5 % (0.0-1.8) 10/14/17 04:37 Lymph # 1.3 K/mm3 (1.2-5.4) 10/14/17 04:37 [place] # 1.0 K/mm3 (0.0-0.8) H 10/14/17 04:37 Eos # 0.1 K/mm3 (0.0-0.4) 10/14/17 04:37 Baso # 0.0 K/mm3 (0.0-0.1) 10/14/17 04:37 Seg Neutrophils % 77.6 % (40.0-70.0) H 10/14/17 04:37 Seg Neutrophils # 8.3 K/mm3 (1.8-7.7) H 10/14/17 04:37 Sodium 141 mmol/L (137-145) 10/14/17 04:37 Potassium 4.5 mmol/L (3.6-5.0) 10/14/17 04:37 Chloride 96.0 mmol/L (98-107) L 10/14/17 04:37 Carbon Dioxide 24 mmol/L (22-30) 10/14/17 04:37 Anion Gap 26 mmol/L 10/14/17 04:37 BUN 41 mg/dL (7-17) H 10/14/17 04:37 Creatinine 6.3 mg/dL (0.7-1.2) H 10/14/17 04:37 Estimated GFR 8 ml/min 10/14/17 04:37 BUN/Creatinine Ratio 7 % 10/14/17 04:37 Glucose 127 mg/dL (65-100) H 10/14/17 04:37 POC Glucose 188 (70-105) H 10/14/17 11:17 Hemoglobin A1c 5.6 % (4-6) 10/13/17 04:25 Lactic Acid 0.80 mmol/L (0.7-2.0) 10/12/17 17:37 Calcium 9.4 mg/dL (8.4-10.2) 10/14/17 04:37 Total Bilirubin 0.30 mg/dL (0.1-1.2) 10/14/17 04:37 AST 10 units/L (5-40) 10/14/17 04:37 ALT < 5 units/L (7-56) L 10/14/17 04:37 Alkaline Phosphatase 115 units/L (35-129) 10/14/17 04:37 Total Protein 6.6 g/dL (6.3-8.2) 10/14/17 04:37 Albumin 3.0 g/dL (3.9-5) L 10/14/17 04:37 Albumin/Globulin Ratio 0.8 % 10/14/17 04:37 TSH 5.890 mlU/mL (0.270-4.200) H 10/12/17 15:08 Free T4 1.35 ng/dL (0.76-1.46) 10/13/17 11:10 Urine Color Yellow (Yellow) 10/12/17 16:27 Urine Turbidity Cloudy (Clear) 10/12/17 16:27 Urine pH 6.0 (5.0-7.0) 10/12/17 16:27 Ur Specific [place] 1.018 (1.003-1.030) 10/12/17 16:27 Urine Protein 100 mg/dl mg/dL (Negative) 10/12/17 16:27 Urine Glucose (UA) Neg mg/dL (Negative) 10/12/17 16:27 Urine Ketones Neg mg/dL (Negative) 10/12/17 16:27 Urine Blood Mod (Negative) 10/12/17 16:27 Urine Nitrite Neg (Negative) 10/12/17 16:27 Urine Bilirubin Neg (Negative) 10/12/17 16:27 Urine Urobilinogen < 2.0 mg/dL (<2.0) 10/12/17 16:27 Ur Leukocyte Esterase Mod (Negative) 10/12/17 16:27 Urine WBC (Auto) > 182.0 /HPF (0.0-6.0) H 10/12/17 16:27 Urine RBC (Auto) 105.0 /HPF (0.0-6.0) 10/12/17 16:27 U Epithel Cells (Auto) 59.0 /HPF (0-13.0) H 10/12/17 16:27 Urine Bacteria (Auto) 2+ /HPF (Negative) 10/12/17 16:27 Urine WBC Clumps 3+ /HPF 10/12/17 16:27 Urine Opiates Screen Presumptive negative 10/12/17 16:27 Urine Methadone Screen Presumptive negative 10/12/17 16:27 Ur Barbiturates Screen Presumptive negative 10/12/17 16:27 Ur Phencyclidine Scrn Presumptive negative 10/12/17 16:27 Ur Amphetamines Screen Presumptive negative 10/12/17 16:27 U Benzodiazepines Scrn Presumptive negative 10/12/17 16:27 Urine Cocaine Screen Presumptive negative 10/12/17 16:27 U Marijuana (THC) Screen Presumptive negative 10/12/17 16:27 Drugs of Abuse Note Disclamer 10/12/17 16:27 Plasma/Serum Alcohol < 0.01 % (0-0.07) 10/12/17 15:08
[2017-10-14] MEDS ORDERED: PANCREAZE DR 10,500 UNIT FEEDTUBE PRN (15:14)
[2017-10-14] MEDS ORDERED: SIMPLE SYRUP FEEDTUBE PRN ×2 (15:14)
[2017-10-14] MEDS ORDERED: SODIUM BICARBONATE FEEDTUBE PRN (15:14)
--- NOTE | 2017-10-14 17:49 | Consultation ---
History of Present Illness - Reason for Consult Consult date: 10/14/17 AV access occlusion - History of Present Illness 57-year-old who is not a patient of my practice, with type 2 diabetes mellitus, hypertension, End stage renal disease on hemodialysis Tuesday, Tuesday and Tuesday schedule. Patient was brought to the hospital due to altered mental status. She was sent from the dialysis clinic. Records from the dialysis clinic are not available from review and she is nonverbal and so unable to give a history. History is obtained from my review of the hospital records Patient recently had a right below-knee amputation at [facility]. She has left first digit gangrene, and a left heel ulcer. She has a left-sided brachiocephalic AV fistula which has thrombosed. She is currently not verbal. Could not palpate the left pedal pulses due to overlying bandage. We'll obtain arterial ultrasound. However, according to the patient's daughter, the patient has had gangrene of the left first digit for greater than 6 months and had an angiogram with revascularization 6 months ago. Lack of improvement suggests inadequate arterial revascularization. Past History Past Medical History: diabetes, ESRD, hypertension, PVD Past Surgical History: hysterectomy, Other (left upper extremity AV fistula, left foot surgery, right below knee amputation) Social history: other (unable to obtain) Family history: other (unable to obtain) Medications and Allergies Allergies Allergy/AdvReac Type Severity Reaction Status Date / Time No Known Allergies Allergy Verified 06/22/17 11:30 Home Medications Medication Instructions Recorded Confirmed Last Taken Type Insulin Glargine,Hum.rec.anlog 20 units SQ QHS 06/23/17 10/12/17 Unknown History [Lantus] cloNIDine [Catapres] 0.1 mg PO TID PRN 06/23/17 10/12/17 Unknown History ALBUTEROL NEB's [Proventil 0.083% 2.5 mg IH Q4HRT PRN nebu 06/25/17 10/12/17 Unknown Rx NEBS] Carvedilol [Coreg] 12.5 mg PO DAILY tablet 06/25/17 10/12/17 Unknown Rx HYDROcodone/APAP 7.5-325 [[place] 1 each PO Q6H PRN #30 tablet 06/25/17 10/12/17 Unknown Rx 7.5-325 mg TAB] NIFEdipine [Nifedipine ER] 60 mg PO BID #60 tab.er.24 06/25/17 10/12/17 Unknown Rx Zolpidem [Ambien] 10 mg PO QHS #15 tablet 06/25/17 10/12/17 Unknown Rx Active Meds: Active Medications Acetaminophen (Tylenol) 650 mg PO Q4H PRN PRN Reason: Pain MILD(1-3)/Fever >100.5/ESTEBAN Lipase/Protease/Amylase (Pancreaze Dr 10,500 Unit) 1 each FEEDTUBE PRN PRN PRN Reason: For Clogged Feeding Tube Aspirin (Aspirin) 325 mg PO QDAY REPLACED BY [facility] Last Admin: 10/14/17 10:06 Dose: Not Given Carvedilol (Coreg) 12.5 mg PO DAILY REPLACED BY [facility] Last Admin: 10/14/17 10:08 Dose: Not Given Clonidine HCl (Catapres) 0.1 mg PO TID PRN PRN Reason: Hypertension Clonidine HCl (Catapres-Tts Patch) 0.1 mg TD Fr REPLACED BY [facility] Last Admin: 10/14/17 10:10 Dose: 0.1 mg Dextrose (D50w (25gm) Syringe) 50 ml IV PRN PRN PRN Reason: Hypoglycemia Epoetin Rosalio (Procrit) 10,000 unit IV CHANTAL PRN PRN Reason: hemodialysis Heparin Sodium (Porcine) (Heparin 10,000 Units/10 Ml) 1,000 unit IV CHANTAL PRN PRN Reason: hemodialysis Hydralazine HCl (Apresoline) 5 mg IV Q6H PRN PRN Reason: Hypertension Last Admin: 10/13/17 23:03 Dose: 5 mg Ceftriaxone Sodium 1 gm/ (Sodium Chloride) 20 mls @ 20 mls/10 min IV Q24HR REPLACED BY [facility] ; Protocol Last Admin: 10/14/17 10:06 Dose: 20 mls/10 min Sodium Chloride (Nacl 0.9%) 100 mls @ 999 mls/hr IV CHANTAL PRN PRN Reason: Hypotension Insulin Glargine (Lantus) 20 units SUB-Q QHS REPLACED BY [facility] Last Admin: 10/13/17 22:47 Dose: Not Given Insulin Human Lispro (Humalog) 0 unit SUB-Q ACHS REPLACED BY [facility]; Protocol Last Admin: 10/14/17 17:09 Dose: Not Given Metoprolol Tartrate (Lopressor) 5 mg IV Q6HR REPLACED BY [facility] Last Admin: 10/14/17 11:30 Dose: 5 mg Morphine Sulfate (Morphine) 2 mg IV Q4H PRN PRN Reason: Pain, Moderate (4-6) Last Admin: 10/14/17 11:27 Dose: 2 mg Nifedipine (Procardia Xl) 60 mg PO BID REPLACED BY [facility] Last Admin: 10/14/17 10:07 Dose: Not Given Ondansetron HCl (Zofran) 4 mg IV Q8H PRN PRN Reason: Nausea And Vomiting Simple Syrup (Simple Syrup) 15 ml FEEDTUBE PRN PRN PRN Reason: Hypoglycemia Simple Syrup (Simple Syrup) 30 ml FEEDTUBE PRN PRN PRN Reason: Hypoglycemia Sodium Bicarbonate (Sodium Bicarbonate) 325 mg FEEDTUBE PRN PRN PRN Reason: For Clogged Feeding Tube Sodium Chloride (Sodium Chloride Flush Syringe 10 Ml) 10 ml IV PRN PRN PRN Reason: LINE FLUSH Last Admin: 10/14/17 02:00 Dose: 10 ml Sodium Chloride (Sodium Chloride Flush Syringe 10 Ml) 10 ml IV BID REPLACED BY [facility] Last Admin: 10/14/17 10:07 Dose: 10 ml Zolpidem Tartrate (Ambien) 10 mg PO QHS REPLACED BY [facility] Last Admin: 10/13/17 22:46 Dose: Not Given Review of Systems All systems: negative (see HPI) Exam - Constitutional Vitals: Temp Pulse Resp BP Pulse Ox 98.8 F 88 20 183/70 100 10/14/17 15:48 10/14/17 15:48 10/14/17 15:48 10/14/17 15:48 10/14/17 15:48 General appearance: Present: other (oriented x0, alert) - Respiratory Respiratory effort: normal - Extremities Extremities: abnormal (occluded left brachiocephalic AV fistula with some inflow from the most peripheral portion of the fistula ; well-healing right below-knee amputation with incision line intact; bandaged left lower extremity with gangrenous first digit and heel ulcer; could not palpate pulses due to overlying bandage) - Abdominal General gastrointestinal: Present: soft - Psychiatric Psychiatric: other (alert, but oriented 0) Results - Labs CBC & Chem 7: 10/14/17 04:37 10/14/17 04:37 Labs: Abnormal lab results 10/13/17 10/14/17 10/14/17 Range/Units 21:48 04:37 04:37 RBC 3.35 L (3.65-5.03) M/mm3 Hgb 9.7 L (10.1-14.3) gm/dl Hct 30.0 L (30.3-42.9) % RDW 18.7 H (13.2-15.2) % Lymph % (Auto) 11.8 L (13.4-35.0) % Leon % (Auto) 8.9 H (0.0-7.3) % Leon # 1.0 H (0.0-0.8) K/mm3 Seg Neutrophils % 77.6 H (40.0-70.0) % Seg Neutrophils # 8.3 H (1.8-7.7) K/mm3 Chloride 96.0 L (98-107) mmol/L BUN 41 H (7-17) mg/dL Creatinine 6.3 H (0.7-1.2) mg/dL Glucose 127 H (65-100) mg/dL POC Glucose 191 H (70-105) ALT < 5 L (7-56) units/L Albumin 3.0 L (3.9-5) g/dL 10/14/17 10/14/17 Range/Units 06:34 11:17 RBC (3.65-5.03) M/mm3 Hgb (10.1-14.3) gm/dl Hct (30.3-42.9) % RDW (13.2-15.2) % Lymph % (Auto) (13.4-35.0) % [place] % (Auto) (0.0-7.3) % [place] # (0.0-0.8) K/mm3 Seg Neutrophils % (40.0-70.0) % Seg Neutrophils # (1.8-7.7) K/mm3 Chloride (98-107) mmol/L BUN (7-17) mg/dL Creatinine (0.7-1.2) mg/dL Glucose (65-100) mg/dL POC Glucose 141 H 188 H (70-105) ALT (7-56) units/L Albumin (3.9-5) g/dL Assessment and Plan 57-year-old female with peripheral vascular disease and end-stage renal disease who presents with metabolic encephalopathy versus cerebrovascular accident who has a right below-knee amputation that is healing well, and left lower extremity gangrene of the first digit with a heel ulcer with inability to palpate the DP, but limited due to overlying bandage. Patient has a left brachiocephalic AV fistula which is occluded. Regarding the patient's dialysis issues, the left AV fistula is occluded with some inflow in the most peripheral portion of the fistula. Given the patient's mental status, AV thrombectomy is not possible. In addition, given the size of the cephalic vein, the thrombus load would be large. I'll place a PermCath for now given the lack of fever, leukocytosis, and lack of positive culture data. If patient develops positive blood cultures during this admission, then the PermCath can be exchanged prior to discharge if required. Regarding the left lower extremity gangrene, I'll order an arterial ultrasound. The patient has had gangrene of the left first digit for 6 months, and had an intervention 6 months ago. Lack of improvement suggests underlying arterial disease requiring repeat procedure. The patient has an outside vascular surgeon , but the family would like us to assist with limb salvage if her mental status improves during this admission.
[2017-10-14] MEDS ORDERED: SUBLIMAZE ONE (17:56)
[2017-10-14] MEDS ORDERED: VERSED ONE (17:56)
[2017-10-14] MEDS ORDERED: XYLOCAINE 2% INFILTRATI ONE (17:56)
[2017-10-14] MEDS ORDERED: HEPARIN/NS 5000 UNIT/500ML(CATH LAB) 500 ML IR ONE (17:56)
[2017-10-14] MEDS ORDERED: NACL 0.9% 250ML 250 ML ONE (17:56)
[2017-10-14] MEDS ORDERED: ANCEF/STERILE WATER 2 GM/20 ML 2 GM/20 ML SYRINGE IV ONE (17:56)
[2017-10-14] MEDS: HEPARIN 10,000 UNITS/10 ML ONE ×2 (18:15→18:16)
--- NOTE | 2017-10-14 18:35 | Operative Report ---
Operative Report Operative Report: EXAM: 1. Ultrasound-guided puncture of the right internal jugular vein 2. Fluoroscopic-guided placement of a right internal jugular tunneled cuffed hemodialysis catheter. DATE: 10/14/17 INDICATION: End-stage renal disease requiring hemodialysis access. MEDICATIONS: Please see nursing report for full details. DEVICES: 23 cm tip to cuff 15 Fr dual lumen hemodialysis catheter [employer]ENDER: ULISES LOYA MD CONTRAST: None PROCEDURE: The risks, benefits, and alternatives were discussed and informed consent was obtained. The patient was transported to the angiography suite in satisfactory/ stable condition and was transported onto the angiography table. The patient's right internal jugular vein was assessed with ultrasound and determined to be patent prior to procedure. The patient was prepped and draped in a sterile fashion. The puncture site was anesthetized. Under sonographic guidance, the right internal jugular vein was punctured with a 21-gauge micropuncture needle and a 0.018 inch wire was advanced into the inferior vena cava. The micropuncture needle was exchanged for a transitional dilator and the wire was retracted into the right atrium to [place] intravascular distance. The wire and inner dilator were removed. 0.035 inch wire was advanced through the transitional dilator into the inferior vena cava. A suitable exit site was identified on the patient's chest inferior and lateral to the venotomy. The site was anesthetized with local anesthetic and the track was anesthetized. Dermatotomy was made. The PermCath was attached to the tunneling device and tunneled between the dermatotomy to the venotomy. Over the 0.035 inch wire, serial dilatation was performed with ultimate placement of a peel-away sheath. The catheter was advanced through the peel- away sheath after the wire was removed and positioned centrally under fluoroscopic guidance. The peel-away sheath was removed. 4-0 Vicryl suture was used to close the venotomy and Dermabond was then applied. 2-0 Ethilon suture was used to secure the catheter at the dermatotomy. The catheter was charged with heparin 1000 units per mL of heparin. Sterile dressing and Biopatch applied. The patient was transferred from the angiography suite back to the floor in stable condition. FINDINGS: 1. Excellent flow was obtained through the dialysis catheter with 20 mL syringes. 2. The catheter tip is in the right atrium. IMPRESSION: 1. Successful ultrasound and fluoroscopically guided placement of a right internal jugular tunneled cuffed hemodialysis catheter.
[2017-10-14] MEDS ORDERED: NACL 0.9% 1000 ML 2,000 ML ONE (20:27)
--- NOTE | 2017-10-14 20:49 | XRay Report ---
FINAL REPORT EXAM: XR ABDOMEN 1V AP HISTORY: placement of Dobhoff tube in stomach TECHNIQUE: Supine view of the abdomen PRIORS: None. FINDINGS: Feeding tube terminates in the proximal stomach. The bowel gas pattern is nonspecific. Moderate stool is present throughout the colon. No free air is identified. Soft tissues have no evidence for mass shadows. Heavy vascular calcifications are noted. The bony structures are intact. IMPRESSION: A feeding tube terminates in the proximal stomach. Nonspecific, nonobstructive bowel gas pattern with no acute process noted.
[2017-10-14] MEDS: AMBIEN PO SCH (22:56)
[2017-10-15] MEDS: HumaLOG SUB-Q SCH ×4 (00:25→18:56)
[2017-10-15] MEDS: LANTUS SUB-Q SCH (00:25)
--- NOTE | 2017-10-15 10:34 | Progress Note ---
Assessment and Plan Assessment and plan: Patient is a 57-year-old -[place] woman who presented to the emergency department with complaints of altered mental status by EMS from dialysis clinic. Acute encephalopathy Etiology is likely secondary to sepstic UTI. Patient will continue IV antibiotics MRI negative for acute stroke. Neurology following Sepsis secondary to UTI Presenting with altered mental status and tachycardia. Patient will continue IV antibiotics. Follow urine culture End-stage renal disease on hemodialysis HNephrology following Hypertension Continue antihypertensives Anemia of chronic dz EPO with HD Insulin-dependent diabetes ADA diet, Accu-Cheks before meals and at bedtime, sliding scale insulin DVT prophylaxis SCD History Interval history: Mental status improving, No witnessed seizure Hospitalist Physical - Physical exam Narrative exam: General: Not in acute distress, HEENT:Normocephalic, atraumatic Neck:supple,no JVD Lungs: Clear to auscultation bilaterally, no crackles, no wheeze Heart:S1 and S2 regular, no murmurs, rubs or gallop Abd: soft, non tender,non distended, normal bowel sounds Ext: No edema, no clubbing or cyanosis Neuro: Awake, more alert, now talking, moves all extremitiies. - Constitutional Vitals: Temp Pulse Resp BP Pulse Ox 99.1 F 87 12 148/53 98 10/15/17 08:07 10/15/17 08:07 10/15/17 08:07 10/15/17 08:07 10/15/17 08:07 General appearance: Present: other (oriented x0, alert) Results - Labs CBC & Chem 7: 10/14/17 04:37 10/14/17 04:37 Labs: Laboratory Last Values WBC 10.7 K/mm3 (4.5-11.0) 10/14/17 04:37 RBC 3.35 M/mm3 (3.65-5.03) L 10/14/17 04:37 Hgb 9.7 gm/dl (10.1-14.3) L 10/14/17 04:37 Hct 30.0 % (30.3-42.9) L 10/14/17 04:37 MCV 90 fl (79-97) 10/14/17 04:37 MCH 29 pg (28-32) 10/14/17 04:37 MCHC 32 % (30-34) 10/14/17 04:37 RDW 18.7 % (13.2-15.2) H 10/14/17 04:37 Plt Count 279 K/mm3 (140-440) 10/14/17 04:37 Lymph % (Auto) 11.8 % (13.4-35.0) L 10/14/17 04:37 [place] % (Auto) 8.9 % (0.0-7.3) H 10/14/17 04:37 Eos % (Auto) 1.2 % (0.0-4.3) 10/14/17 04:37 Baso % (Auto) 0.5 % (0.0-1.8) 10/14/17 04:37 Lymph # 1.3 K/mm3 (1.2-5.4) 10/14/17 04:37 [place] # 1.0 K/mm3 (0.0-0.8) H 10/14/17 04:37 Eos # 0.1 K/mm3 (0.0-0.4) 10/14/17 04:37 Baso # 0.0 K/mm3 (0.0-0.1) 10/14/17 04:37 Seg Neutrophils % 77.6 % (40.0-70.0) H 10/14/17 04:37 Seg Neutrophils # 8.3 K/mm3 (1.8-7.7) H 10/14/17 04:37 Sodium 141 mmol/L (137-145) 10/14/17 04:37 Potassium 4.5 mmol/L (3.6-5.0) 10/14/17 04:37 Chloride 96.0 mmol/L (98-107) L 10/14/17 04:37 Carbon Dioxide 24 mmol/L (22-30) 10/14/17 04:37 Anion Gap 26 mmol/L 10/14/17 04:37 BUN 41 mg/dL (7-17) H 10/14/17 04:37 Creatinine 6.3 mg/dL (0.7-1.2) H 10/14/17 04:37 Estimated GFR 8 ml/min 10/14/17 04:37 BUN/Creatinine Ratio 7 % 10/14/17 04:37 Glucose 127 mg/dL (65-100) H 10/14/17 04:37 POC Glucose 153 (70-105) H 10/15/17 07:11 Hemoglobin A1c 5.6 % (4-6) 10/13/17 04:25 Lactic Acid 0.80 mmol/L (0.7-2.0) 10/12/17 17:37 Calcium 9.4 mg/dL (8.4-10.2) 10/14/17 04:37 Total Bilirubin 0.30 mg/dL (0.1-1.2) 10/14/17 04:37 AST 10 units/L (5-40) 10/14/17 04:37 ALT < 5 units/L (7-56) L 10/14/17 04:37 Alkaline Phosphatase 115 units/L (35-129) 10/14/17 04:37 Total Protein 6.6 g/dL (6.3-8.2) 10/14/17 04:37 Albumin 3.0 g/dL (3.9-5) L 10/14/17 04:37 Albumin/Globulin Ratio 0.8 % 10/14/17 04:37 TSH 5.890 mlU/mL (0.270-4.200) H 10/12/17 15:08 Free T4 1.35 ng/dL (0.76-1.46) 10/13/17 11:10 Urine Color Yellow (Yellow) 10/12/17 16:27 Urine Turbidity Cloudy (Clear) 10/12/17 16:27 Urine pH 6.0 (5.0-7.0) 10/12/17 16:27 Ur Specific [place] 1.018 (1.003-1.030) 10/12/17 16:27 Urine Protein 100 mg/dl mg/dL (Negative) 10/12/17 16:27 Urine Glucose (UA) Neg mg/dL (Negative) 10/12/17 16:27 Urine Ketones Neg mg/dL (Negative) 10/12/17 16:27 Urine Blood Mod (Negative) 10/12/17 16:27 Urine Nitrite Neg (Negative) 10/12/17 16:27 Urine Bilirubin Neg (Negative) 10/12/17 16:27 Urine Urobilinogen < 2.0 mg/dL (<2.0) 10/12/17 16:27 Ur Leukocyte Esterase Mod (Negative) 10/12/17 16:27 Urine WBC (Auto) > 182.0 /HPF (0.0-6.0) H 10/12/17 16:27 Urine RBC (Auto) 105.0 /HPF (0.0-6.0) 10/12/17 16:27 U Epithel Cells (Auto) 59.0 /HPF (0-13.0) H 10/12/17 16:27 Urine Bacteria (Auto) 2+ /HPF (Negative) 10/12/17 16:27 Urine WBC Clumps 3+ /HPF 10/12/17 16:27 Urine Opiates Screen Presumptive negative 10/12/17 16:27 Urine Methadone Screen Presumptive negative 10/12/17 16:27 Ur Barbiturates Screen Presumptive negative 10/12/17 16:27 Ur Phencyclidine Scrn Presumptive negative 10/12/17 16:27 Ur Amphetamines Screen Presumptive negative 10/12/17 16:27 U Benzodiazepines Scrn Presumptive negative 10/12/17 16:27 Urine Cocaine Screen Presumptive negative 10/12/17 16:27 U Marijuana (THC) Screen Presumptive negative 10/12/17 16:27 Drugs of Abuse Note Disclamer 10/12/17 16:27 Plasma/Serum Alcohol < 0.01 % (0-0.07) 10/12/17 15:08
[2017-10-15] MEDS: ASPIRIN PO SCH (11:16)
[2017-10-15] MEDS: COREG PO SCH (11:16)
[2017-10-15] MEDS: PROCARDIA XL PO SCH ×2 (11:17→22:39)
[2017-10-15] MEDS: MORPHINE IV PRN ×3 (12:24→22:37)
[2017-10-15] MEDS: LOPRESSOR IV SCH ×3 (12:25→22:38)
[2017-10-15] MEDS: cefTRIAXone 1 GM in NACL 0.9% 20 ML IV SCH (12:26)
--- NOTE | 2017-10-15 12:44 | Consultation ---
History of Present Illness Consult date: 10/15/17 History of present illness: patient seen and extensive note dictated spoke to famly suspect multiple old stroke and now metabolic encephalopathy suspect there was seizure metabolic cause will discuss with Dr. Noel Thanks for consult will follow at this point she is better from yesterday per direct OBS of the family Past History Past Medical History: diabetes, ESRD, hypertension, PVD Past Surgical History: hysterectomy, Other (left upper extremity AV fistula, left foot surgery, right below knee amputation) Social history: other (unable to obtain) Family history: other (unable to obtain) Medications and Allergies Allergies Allergy/AdvReac Type Severity Reaction Status Date / Time No Known Allergies Allergy Verified 06/22/17 11:30 Home Medications Medication Instructions Recorded Confirmed Last Taken Type Insulin Glargine,Hum.rec.anlog 20 units SQ QHS 06/23/17 10/12/17 Unknown History [Lantus] cloNIDine [Catapres] 0.1 mg PO TID PRN 06/23/17 10/12/17 Unknown History ALBUTEROL NEB's [Proventil 0.083% 2.5 mg IH Q4HRT PRN nebu 06/25/17 10/12/17 Unknown Rx NEBS] Carvedilol [Coreg] 12.5 mg PO DAILY tablet 06/25/17 10/12/17 Unknown Rx HYDROcodone/APAP 7.5-325 [[place]us[place] 1 each PO Q6H PRN #30 tablet 06/25/17 10/12/17 Unknown Rx 7.5-325 mg TAB] NIFEdipine [Nifedipine ER] 60 mg PO BID #60 tab.er.24 06/25/17 10/12/17 Unknown Rx Zolpidem [Ambien] 10 mg PO QHS #15 tablet 06/25/17 10/12/17 Unknown Rx Active Meds: Active Medications Acetaminophen (Tylenol) 650 mg PO Q4H PRN PRN Reason: Pain MILD(1-3)/Fever >100.5/ESTEBAN Lipase/Protease/Amylase (Lázaro Kingsley 10,500 Unit) 1 each FEEDTUBE PRN PRN PRN Reason: For Clogged Feeding Tube Aspirin (Aspirin) 325 mg PO QDAY [facility] Last Admin: 10/15/17 11:16 Dose: Not Given Carvedilol (Coreg) 12.5 mg PO DAILY [facility] Last Admin: 10/15/17 11:16 Dose: Not Given Clonidine HCl (Catapres) 0.1 mg PO TID PRN PRN Reason: Hypertension Clonidine HCl (Catapres-Tts Patch) 0.1 mg TD Fr [facility] Last Admin: 10/14/17 10:10 Dose: 0.1 mg Dextrose (D50w (25gm) Syringe) 50 ml IV PRN PRN PRN Reason: Hypoglycemia Epoetin Rosalio (Procrit) 10,000 unit IV CHANTAL PRN PRN Reason: hemodialysis Heparin Sodium (Porcine) (Heparin 10,000 Units/10 Ml) 1,000 unit IV CHANTAL PRN PRN Reason: hemodialysis Hydralazine HCl (Apresoline) 5 mg IV Q6H PRN PRN Reason: Hypertension Last Admin: 10/13/17 23:03 Dose: 5 mg Ceftriaxone Sodium 1 gm/ (Sodium Chloride) 20 mls @ 20 mls/10 min IV Q24HR [facility] ; Protocol Last Admin: 10/15/17 12:26 Dose: 20 mls/10 min Sodium Chloride (Nacl 0.9%) 100 mls @ 999 mls/hr IV CHANTAL PRN PRN Reason: Hypotension Insulin Glargine (Lantus) 20 units SUB-Q QHS [facility] Last Admin: 10/15/17 00:25 Dose: 20 units Insulin Human Lispro (Humalog) 0 unit SUB-Q ACHS [facility]; Protocol Last Admin: 10/15/17 12:20 Dose: Not Given Metoprolol Tartrate (Lopressor) 5 mg IV Q6HR [facility] Last Admin: 10/15/17 12:25 Dose: 5 mg Morphine Sulfate (Morphine) 2 mg IV Q4H PRN PRN Reason: Pain, Moderate (4-6) Last Admin: 10/15/17 12:24 Dose: 2 mg Nifedipine (Procardia Xl) 60 mg PO BID [facility] Last Admin: 10/15/17 11:17 Dose: Not Given Ondansetron HCl (Zofran) 4 mg IV Q8H PRN PRN Reason: Nausea And Vomiting Simple Syrup (Simple Syrup) 15 ml FEEDTUBE PRN PRN PRN Reason: Hypoglycemia Simple Syrup (Simple Syrup) 30 ml FEEDTUBE PRN PRN PRN Reason: Hypoglycemia Sodium Bicarbonate (Sodium Bicarbonate) 325 mg FEEDTUBE PRN PRN PRN Reason: For Clogged Feeding Tube Sodium Chloride (Sodium Chloride Flush Syringe 10 Ml) 10 ml IV PRN PRN PRN Reason: LINE FLUSH Last Admin: 10/14/17 02:00 Dose: 10 ml Sodium Chloride (Sodium Chloride Flush Syringe 10 Ml) 10 ml IV BID [facility] Last Admin: 10/14/17 22:57 Dose: 10 ml Zolpidem Tartrate (Ambien) 10 mg PO QHS [facility] Last Admin: 10/14/17 22:56 Dose: 10 mg Physical Examination - Vital Signs Vital Signs: Vital Signs BP 201/81 10/12/17 14:42 Results - Laboratory Findings CBC and BMP: 10/14/17 04:37 10/14/17 04:37 Abnormal Lab Findings: Abnormal Labs 10/12/17 10/12/17 10/12/17 14:54 15:08 15:08 RBC 3.38 L Hgb 9.9 L Hct RDW 18.6 H Lymph % (Auto) [place] % (Auto) [place] # Seg Neutrophils % 74.7 H Seg Neutrophils # Chloride 93.5 L BUN 28 H Creatinine 4.4 H Glucose 128 H POC Glucose 149 H ALT < 5 L Alkaline Phosphatase 144 H Albumin 3.3 L TSH Urine WBC (Auto) U Epithel Cells (Auto) 10/12/17 10/12/17 10/13/17 15:08 16:27 04:25 RBC Hgb Hct RDW Lymph % (Auto) [place] % (Auto) [place] # Seg Neutrophils % Seg Neutrophils # Chloride BUN 34 H Creatinine 5.5 H Glucose 124 H POC Glucose ALT Alkaline Phosphatase Albumin TSH 5.890 H Urine WBC (Auto) > 182.0 H U Epithel Cells (Auto) 59.0 H 10/13/17 10/13/17 10/13/17 06:02 11:52 17:03 RBC Hgb Hct RDW Lymph % (Auto) [place] % (Auto) [place] # Seg Neutrophils % Seg Neutrophils # Chloride BUN Creatinine Glucose POC Glucose 128 H 138 H 163 H ALT Alkaline Phosphatase Albumin TSH Urine WBC (Auto) U Epithel Cells (Auto) 10/13/17 10/14/17 10/14/17 21:48 04:37 04:37 RBC 3.35 L Hgb 9.7 L Hct 30.0 L RDW 18.7 H Lymph % (Auto) 11.8 L [place] % (Auto) 8.9 H [place] # 1.0 H Seg Neutrophils % 77.6 H Seg Neutrophils # 8.3 H Chloride 96.0 L BUN 41 H Creatinine 6.3 H Glucose 127 H POC Glucose 191 H ALT < 5 L Alkaline Phosphatase Albumin 3.0 L TSH Urine WBC (Auto) U Epithel Cells (Auto) 10/14/17 10/14/17 10/14/17 06:34 11:17 23:59 RBC Hgb Hct RDW Lymph % (Auto) [place] % (Auto) [place] # Seg Neutrophils % Seg Neutrophils # Chloride BUN Creatinine Glucose POC Glucose 141 H 188 H 172 H ALT Alkaline Phosphatase Albumin TSH Urine WBC (Auto) U Epithel Cells (Auto) 10/15/17 10/15/17 07:11 12:02 RBC Hgb Hct RDW Lymph % (Auto) [place] % (Auto) [place] # Seg Neutrophils % Seg Neutrophils # Chloride BUN Creatinine Glucose POC Glucose 153 H 143 H ALT Alkaline Phosphatase Albumin TSH Urine WBC (Auto) U Epithel Cells (Auto)
--- NOTE | 2017-10-15 15:00 | Magnetic Resonance Report ---
FINAL REPORT EXAM: MR MRA/MRV HEAD WO CON HISTORY: altered mental status TECHNIQUE: MR angiography of the head performed. No IV contrast administered. 3D [id number] axial images and reformatted douglas Fischer angiographic images were obtained. PRIORS: None. FINDINGS: The anterior and posterior circulations are maintained. No intravascular filling defects seen. No cerebral aneurysm seen. Left vertebral artery is dominant. IMPRESSION: There is no significant abnormality identified.
--- NOTE | 2017-10-15 15:06 | Magnetic Resonance Report ---
FINAL REPORT EXAM: MR BRAIN WO CON HISTORY: altered mental status TECHNIQUE: MRI of the brain was performed. Images include: Sagittal T1, axial diffusion, axial ADC map, axial gradient, axial T2, axial FLAIR, axial T1, coronal FLAIR PRIORS: Correlation is made with CT head of 10/12/2017 FINDINGS: There are no abnormal areas of diffusion restriction to indicate acute infarct. There is no edema, mass effect or midline shift. There are focal areas of high signal in the white matter bilaterally likely reflecting chronic small vessel ischemic disease. There is an old small right periventricular lacunar infarct. There is likely an old left basal ganglia lacunar infarct. The ventricular size is appropriate for brain volume. There is opacification of the right sphenoid sinus with mucosal thickening. There is also partial opacification of the right frontal sinus. These findings were seen on CT and most likely of represents chronic sinusitis. IMPRESSION: No acute intracranial abnormality. Probable chronic sinusitis involving right sphenoid and right frontal sinuses.
[2017-10-15] MEDS ORDERED: DIFLUCAN 200 MG/100 ML BAG IV SCH (16:00)
[2017-10-15] MEDS: SODIUM CHLORIDE FLUSH SYRINGE 10 ML IV SCH ×2 (18:35→22:39)
[2017-10-15] MEDS: AMBIEN PO SCH (22:39)
[2017-10-16] MEDS: LANTUS SUB-Q SCH ×2 (01:51→22:41)
[2017-10-16] MEDS: HumaLOG SUB-Q SCH ×6 (01:51→23:41)
[2017-10-16] MEDS: LOPRESSOR IV SCH ×5 (01:53→20:47)
--- NOTE | 2017-10-16 03:21 | Consultation ---
HISTORY OF PRESENT ILLNESS: This is a 57-year-old black female that was recently discharged to [facility] for a BKA amputation of the right leg. She apparently is 8 days post-surgery when [facility] [place] and was being sent to dialysis 2 days ago and while on the way became unresponsive. EMS transferred her with altered mental status. She was known to have hypertension, diabetes, peripheral vascular disease, end-stage renal disease was on hemodialysis on a Tuesday, Tuesday, Tuesday basis. She did not receive dialysis the previous day because of upper extremity dialysis fistula was having issues. She was very poorly arousable, was acutely confused and at times unresponsive according to the evaluation. In the Emergency Room Department, her hematocrit was noted to be 30.4, sodium 139, potassium 4.1, glucose was 124, creatinine was 5.5. The patient had a CT scan of the head, which showed chronic microvascular changes, subcortical and periventricular ischemic changes in the white matter. The patient was subsequently admitted and since admission has remained confused and disoriented. I have reviewed recently Dr. Jung's notes on the patient and she at this point seems to be slightly better, although her creatinine is 6.3 at present and she had dialysis the previous evening and according to family members present with her, she is a little bit more responsive and less confused. Yesterday, she was not speaking at all, was not responding to family members today. She is slightly more responsive and slightly more appropriate with following simple commands. Unfortunately, she has not eaten for about 3 days by family history. Review of pertinent laboratory shows AST and ALT are 10 and 5 respectively. The patient's glucose is 127, potassium is 4.5. The patient's BUN is 41 and the present creatinine is 6.3. ALLERGIES: No known allergies. SOCIAL HISTORY: Denies drinking, denies smoking. PAST SURGICAL HISTORY: Recent surgical history of BKA amputation of right leg. PHYSICAL EXAMINATION: On my current evaluation is showing her blood pressure is 157/57, pulse rate is 99. She is afebrile. Her ocular movements are full. Funduscopic examination benign. [employer] strength is equal. She has a BKA amputation of the right leg. I did examine the metallic skin site kasandra, they are all intact. There is no evidence of drainage or swelling and no evidence of infection or cellulitis present in the right leg. Left leg was bandaged and in a protective devices, this was not examined. I did not detect any tremors or asterixis. She does respond to me. She speaks well, recognizes family members present in the room. No dystonia. No myoclonic jerks. IMPRESSION: 1. Metabolic encephalopathy. 2. Multiple strokes. 3. Recent below knee amputation, right leg due to peripheral vascular disease. 4. Hypertension. 5. Diabetes. PLAN: Obtain EEG. Continue monitoring. I do not see a reason to get MRI scan today as well as her condition is improving, I am not going to repeat her CT scan. I did have the opportunity to review the prior head CT and my own interpretation from reviewing the images, when she was admitted does show severe atrophy, severe cortical loss and severe white matter changes and old lacunar infarct in the right hemisphere in the rashid radiata adjacent to the lateral ventricle. The remainder of the patient's examination at this point is as stated above. I will follow the patient with you. Thank you for this consultation. JOB# [id number] DELILAH/JAYRO
--- NOTE | 2017-10-16 08:23 | Progress Note ---
Assessment and Plan - Patient Problems (1) ESRD on dialysis Current Visit: Yes Status: Acute Plan to address problem: Electrolytes and volume status stable. cont HD on MWF schedule (2) Encephalopathy acute Current Visit: Yes Status: Acute Plan to address problem: Suspect toxic encephalopathy. 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 Urine culture has been done. UCx showed brigido albicans, cont fluconazole, dose renally adjusted. (4) Anemia in chronic kidney disease Current Visit: No Status: Acute Plan to address problem: Give Erythropoetin on dialysis (5) Hypertensive chronic kidney disease with stage 5 chronic kidney disease or end stage renal disease Current Visit: No Status: Chronic Plan to address problem: Continue current medications. Follow blood pressure on current medications (6) Type 2 diabetes mellitus with diabetic chronic kidney disease Current Visit: No Status: Chronic Plan to address problem: glucose control as per primary attending Subjective Date of service: 10/16/17 Principal diagnosis: ESRD Interval history: Pt awake, alert, oriented to person, place. Objective - Vital Signs Vital signs: Vital Signs - 12hr 10/15/17 10/15/17 10/16/17 22:37 22:38 00:25 Temperature 98.1 F Pulse Rate 74 69 Respiratory 20 20 Rate Blood Pressure 128/52 145/57 O2 Sat by Pulse 94 Oximetry 10/16/17 10/16/17 03:23 04:37 Temperature 97.6 F Pulse Rate 69 68 Respiratory 20 Rate Blood Pressure 97/22 O2 Sat by Pulse 97 Oximetry - General Appearance General appearance: well-developed, well-nourished, appears stated age EENT: ATNC, PERRL, mucous membranes moist Neck: no JVD Respiratory: Present: Clear to Ascultation Cardiology: regular, S1S2 Gastrointestinal: normoactive bowel sounds Integumentary: no rash, other (r BKA) Neurologic: no focal deficit, strength 5/5, CN 3-12 intact Psychiatric: mood/affect appropriate, cooperative - Lab 10/14/17 04:37 10/14/17 04:37 Most recent lab results Calcium 9.4 mg/dL (8.4-10.2) 10/14/17 04:37
[2017-10-16] MEDS: COREG PO SCH (10:45)
[2017-10-16] MEDS: PROCARDIA XL PO SCH ×2 (10:45→22:35)
[2017-10-16] MEDS: ASPIRIN PO SCH (10:45)
[2017-10-16] MEDS: SODIUM CHLORIDE FLUSH SYRINGE 10 ML IV SCH ×2 (10:47→22:35)
[2017-10-16] MEDS: cefTRIAXone 1 GM in NACL 0.9% 20 ML IV SCH (10:51)
--- NOTE | 2017-10-16 10:59 | Discharge Summary ---
<TY ARMENDARIZ - Last Filed: 10/18/17 14:15> Providers - Providers Date of Admission: 10/12/17 18:22 Attending physician: CAMMIE HERNADEZ 10/12/17 14:54 Speech Therapy Evaluation and Treat [CONS] Routine Reason For Exam: failed swallow 10/13/17 Consult to Case Management [CONS] Routine Services Needed at Discharge: Home Health Services Notified:: case management 10/13/17 03:23 Consult to Wound/ET Nurse [CONS] Routine Reason For Exam: wound eval 10/13/17 10:19 Consult to Physician [CONS] Routine Comment: Consulting Provider: EPHRAIM MOSLEY Physician Instructions: Reason For Exam: ESRD on HD 10/14/17 10:44 Consult to Physician [CONS] Routine Comment: Consulting Provider: RIMA NAVARRO Physician Instructions: Reason For Exam: CVA 10/14/17 14:40 Consult to Physician [CONS] Routine Comment: Consulting Provider: ULISES LOYA Physician Instructions: Reason For Exam: clotted HD access 10/14/17 14:57 Consult to Dietitian/Nutrition [CONS] Stat Physician Instructions: Reason For Exam: Reason for Consult: Write/Manage Tube Feeding 10/15/17 10:54 Consult to Physician [CONS] Routine Comment: Consulting Provider: GHASSAN ECHEVARRIA Physician Instructions: Reason For Exam: Altered mental status Primary care physician: PUBLIC BATH ATTENDANT Hospitalization Condition: Fair Hospital course: Patient is a 57-year-old -[place] woman who presented to the emergency department with complaints of altered mental status by EMS from dialysis clinic. Patient presented with metabolic encephalopathy and sepsis secondary to UTI. Neurologist was consulted and MRI was negative for acute stroke. Patient was initiated on empiric IV antibiotics. Urine culture was positive for Melody albicans and patient was initiated on fluconazole after which she began to clinically improve. Patient underwent swallow evaluation with speech therapist and can now tolerate mechanical soft ground diet. Patient's AV access was found to be occluded and vascular surgeon was consult it. Patient successfully underwent ultrasound and fluoroscopically guided placement of a right internal jugular tunneled cuffed hemodialysis catheter. Patient is clinically and hemodynamically stable for discharge back to SNF. She 'll follow-up with a primary care provider within 5 days, vascular surgeon within one week, neurologist within 5 days, and she will be reevaluated by speech therapist for swallow evaluation. Discharge diagnoses Acute encephalopathy AV fistula thrombosis, status post right PermCath placed s/p right BKA Gangrene left toes, s/p HITESH Sepsis secondary to UTI End-stage renal disease on hemodialysis Hypertension Anemia of chronic disease Insulin-dependent diabetes Disposition: DC/[place]-03 SNF [facility] Time spent for discharge: 32 minutes Exam - Physical Exam Narrative exam: General appearance: Present: no acute distress, well-nourished - EENT Eyes: Present: PERRL, EOM intact ENT: hearing intact, clear oral mucosa - Neck Present: supple, normal ROM - Respiratory Respiratory effort: normal Respiratory: bilateral: CTA - Cardiovascular Rhythm: regular Heart Sounds: Present: S1 & S2 Absent: Murmur, rubs, clicks - Extremities Extremities: no ischemia, No edema, right BKA, left heel ulcer, av fistula left arm, gangrene, left lower ext, no clubbing or cyanosis - Abdominal General gastrointestinal: soft, non-tender, non-distended, normal bowel sounds - Integumentary Integumentary: Present: warm, dry - Psychiatric Psychiatric: - Neurologic Neurologic:Awake, alert, oriented x 3,now talking, normal speech,moves all extremities. - Constitutional Vitals: Temp Pulse Resp BP Pulse Ox 98.6 F 78 18 186/67 96 10/18/17 07:35 10/18/17 10:34 10/18/17 07:35 10/18/17 07:35 10/18/17 07:35 Plan Diet: other (mechanical soft-ground diet, renal,diabetic,cardiac diet) Special Instructions: physical therapy Durable Medical Equipment Needed Upon Discharge: other (R knee mobilizer) Follow up with: PRIMARY CARE, [Primary Care Provider] - 3-5 Days <CAMMIE HERNADEZ - Last Filed: 10/18/17 16:21> Providers - Providers Date of Admission: 10/12/17 18:22 Date of discharge: 10/16/17 Attending physician: CAMMIE HERNADEZ 10/12/17 14:54 Speech Therapy Evaluation and Treat [CONS] Routine Reason For Exam: failed swallow 10/13/17 Consult to Case Management [CONS] Routine Services Needed at Discharge: Home Health Services Notified:: case management 10/13/17 03:23 Consult to Wound/ET Nurse [CONS] Routine Reason For Exam: wound eval 10/13/17 10:19 Consult to Physician [CONS] Routine Comment: Consulting Provider: EPHRAIM MOSLEY Physician Instructions: Reason For Exam: ESRD on HD 10/14/17 10:44 Consult to Physician [CONS] Routine Comment: Consulting Provider: RIMA NAVARRO Physician Instructions: Reason For Exam: CVA 10/14/17 14:40 Consult to Physician [CONS] Routine Comment: Consulting Provider: ULISES LOYA Physician Instructions: Reason For Exam: clotted HD access 10/14/17 14:57 Consult to Dietitian/Nutrition [CONS] Stat Physician Instructions: Reason For Exam: Reason for Consult: Write/Manage Tube Feeding 10/15/17 10:54 Consult to Physician [CONS] Routine Comment: Consulting Provider: GHASSAN ECHEVARRIA Physician Instructions: Reason For Exam: Altered mental status Primary care physician: PUBLIC BATH ATTENDANT Core Measure Documentation - Palliative Care Palliative Care/ Comfort Measures: Not Applicable - Core Measures Any of the following diagnoses?: none Exam - Constitutional Vitals: Temp Pulse Resp BP Pulse Ox 97.6 F 78 16 124/51 94 10/16/17 07:32 10/16/17 10:45 10/16/17 07:32 10/16/17 07:32 10/16/17 07:32 Plan Activity: advance as tolerated Diet: other (Pureed, renal,diabetic,cardiac diet) Additional Instructions: 1.Follow up with Physician at [facility] in 2-3 days. 2.Routine hemodialysis as scheduled. 3.Follow up with alec Polk in 1 week. 4.Follow up with Dr. Echevarria Neuro in 3-5 days. 5.Follow up with speech pathologist in 3-5 days to re-evaluate swallowing
[2017-10-16] MEDS: MORPHINE IV PRN ×2 (11:31→20:05)
--- NOTE | 2017-10-16 11:44 | Progress Note ---
Assessment and Plan Assessment and plan: Patient is a 57-year-old -[place] woman who presented to the emergency department with complaints of altered mental status by EMS from dialysis clinic. Acute encephalopathy Etiology is likely secondary to sepstic UTI. Patient will continue IV antibiotics MRI negative for acute stroke. Neurology following Av fistula thrombosis, s/p right permcath placed for dialysis Right BKA Gangrene s/p HITESH ordered Sepsis secondary to UTI Presenting with altered mental status and tachycardia. Patient will continue IV antibiotics. Follow urine culture End-stage renal disease on hemodialysis HNephrology following Hypertension Continue antihypertensives Anemia of chronic dz EPO with HD Insulin-dependent diabetes ADA diet, Accu-Cheks before meals and at bedtime, sliding scale insulin DVT prophylaxis SCD History Interval history: Mental status improving, Now awake,alert No witnessed seizure Hospitalist Physical - Physical exam Narrative exam: General: Not in acute distress, HEENT:Normocephalic, atraumatic Neck:supple,no JVD Lungs: Clear to auscultation bilaterally, no crackles, no wheeze Heart:S1 and S2 regular, no murmurs, rubs or gallop Abd: soft, non tender,non distended, normal bowel sounds Ext: Right BKA, left heel ulcer, av fistula left arm, gangrene, left lower ext, no clubbing or cyanosis Neuro: Awake, alert, oriented x 3,now talking, normal speech,moves all extremitiies. - Constitutional Vitals: Temp Pulse Resp BP Pulse Ox 97.6 F 78 16 124/51 94 10/16/17 07:32 10/16/17 10:45 10/16/17 07:32 10/16/17 07:32 10/16/17 07:32 Results - Labs CBC & Chem 7: 10/14/17 04:37 10/14/17 04:37 Labs: Laboratory Last Values WBC 10.7 K/mm3 (4.5-11.0) 10/14/17 04:37 RBC 3.35 M/mm3 (3.65-5.03) L 10/14/17 04:37 Hgb 9.7 gm/dl (10.1-14.3) L 10/14/17 04:37 Hct 30.0 % (30.3-42.9) L 10/14/17 04:37 MCV 90 fl (79-97) 10/14/17 04:37 MCH 29 pg (28-32) 10/14/17 04:37 MCHC 32 % (30-34) 10/14/17 04:37 RDW 18.7 % (13.2-15.2) H 10/14/17 04:37 Plt Count 279 K/mm3 (140-440) 10/14/17 04:37 Lymph % (Auto) 11.8 % (13.4-35.0) L 10/14/17 04:37 [place] % (Auto) 8.9 % (0.0-7.3) H 10/14/17 04:37 Eos % (Auto) 1.2 % (0.0-4.3) 10/14/17 04:37 Baso % (Auto) 0.5 % (0.0-1.8) 10/14/17 04:37 Lymph # 1.3 K/mm3 (1.2-5.4) 10/14/17 04:37 [place] # 1.0 K/mm3 (0.0-0.8) H 10/14/17 04:37 Eos # 0.1 K/mm3 (0.0-0.4) 10/14/17 04:37 Baso # 0.0 K/mm3 (0.0-0.1) 10/14/17 04:37 Seg Neutrophils % 77.6 % (40.0-70.0) H 10/14/17 04:37 Seg Neutrophils # 8.3 K/mm3 (1.8-7.7) H 10/14/17 04:37 Sodium 141 mmol/L (137-145) 10/14/17 04:37 Potassium 4.5 mmol/L (3.6-5.0) 10/14/17 04:37 Chloride 96.0 mmol/L (98-107) L 10/14/17 04:37 Carbon Dioxide 24 mmol/L (22-30) 10/14/17 04:37 Anion Gap 26 mmol/L 10/14/17 04:37 BUN 41 mg/dL (7-17) H 10/14/17 04:37 Creatinine 6.3 mg/dL (0.7-1.2) H 10/14/17 04:37 Estimated GFR 8 ml/min 10/14/17 04:37 BUN/Creatinine Ratio 7 % 10/14/17 04:37 Glucose 127 mg/dL (65-100) H 10/14/17 04:37 POC Glucose 343 (70-105) H 10/16/17 11:19 Hemoglobin A1c 5.6 % (4-6) 10/13/17 04:25 Lactic Acid 0.80 mmol/L (0.7-2.0) 10/12/17 17:37 Calcium 9.4 mg/dL (8.4-10.2) 10/14/17 04:37 Total Bilirubin 0.30 mg/dL (0.1-1.2) 10/14/17 04:37 AST 10 units/L (5-40) 10/14/17 04:37 ALT < 5 units/L (7-56) L 10/14/17 04:37 Alkaline Phosphatase 115 units/L (35-129) 10/14/17 04:37 Total Protein 6.6 g/dL (6.3-8.2) 10/14/17 04:37 Albumin 3.0 g/dL (3.9-5) L 10/14/17 04:37 Albumin/Globulin Ratio 0.8 % 10/14/17 04:37 TSH 5.890 mlU/mL (0.270-4.200) H 10/12/17 15:08 Free T4 1.35 ng/dL (0.76-1.46) 10/13/17 11:10 Urine Color Yellow (Yellow) 10/12/17 16:27 Urine Turbidity Cloudy (Clear) 10/12/17 16:27 Urine pH 6.0 (5.0-7.0) 10/12/17 16:27 Ur Specific [place] 1.018 (1.003-1.030) 10/12/17 16:27 Urine Protein 100 mg/dl mg/dL (Negative) 10/12/17 16:27 Urine Glucose (UA) Neg mg/dL (Negative) 10/12/17 16:27 Urine Ketones Neg mg/dL (Negative) 10/12/17 16:27 Urine Blood Mod (Negative) 10/12/17 16:27 Urine Nitrite Neg (Negative) 10/12/17 16:27 Urine Bilirubin Neg (Negative) 10/12/17 16:27 Urine Urobilinogen < 2.0 mg/dL (<2.0) 10/12/17 16:27 Ur Leukocyte Esterase Mod (Negative) 10/12/17 16:27 Urine WBC (Auto) > 182.0 /HPF (0.0-6.0) H 10/12/17 16:27 Urine RBC (Auto) 105.0 /HPF (0.0-6.0) 10/12/17 16:27 U Epithel Cells (Auto) 59.0 /HPF (0-13.0) H 10/12/17 16:27 Urine Bacteria (Auto) 2+ /HPF (Negative) 10/12/17 16:27 Urine WBC Clumps 3+ /HPF 10/12/17 16:27 Urine Opiates Screen Presumptive negative 10/12/17 16:27 Urine Methadone Screen Presumptive negative 10/12/17 16:27 Ur Barbiturates Screen Presumptive negative 10/12/17 16:27 Ur Phencyclidine Scrn Presumptive negative 10/12/17 16:27 Ur Amphetamines Screen Presumptive negative 10/12/17 16:27 U Benzodiazepines Scrn Presumptive negative 10/12/17 16:27 Urine Cocaine Screen Presumptive negative 10/12/17 16:27 U Marijuana (THC) Screen Presumptive negative 10/12/17 16:27 Drugs of Abuse Note Disclamer 10/12/17 16:27 Plasma/Serum Alcohol < 0.01 % (0-0.07) 10/12/17 15:08
--- NOTE | 2017-10-16 11:54 | Progress Note ---
Subjective Date of service: 10/16/17 Principal diagnosis: ESRD Interval history: went over the MRI and there is no acute stroke stable post dialysis can go back to [place] and continue dialysis three times per week would not start anticonvulsants based on current assessment Objective - Vital Sign Vital Signs - 12hr 10/16/17 10/16/17 10/16/17 00:25 03:23 04:37 Temperature 98.1 F 97.6 F Pulse Rate 69 69 68 Respiratory 20 20 Rate Blood Pressure 145/57 97/22 O2 Sat by Pulse 94 97 Oximetry 10/16/17 10/16/17 07:32 10:45 Temperature 97.6 F Pulse Rate 70 78 Respiratory 16 Rate Blood Pressure 124/51 O2 Sat by Pulse 94 Oximetry - Laboratory Findings CBC and BMP: 10/14/17 04:37 10/14/17 04:37 Abnormal Lab Findings: Abnormal Labs 10/12/17 10/12/17 10/12/17 14:54 15:08 15:08 RBC 3.38 L Hgb 9.9 L Hct RDW 18.6 H Lymph % (Auto) Iron % (Auto) Iron # Seg Neutrophils % 74.7 H Seg Neutrophils # Chloride 93.5 L BUN 28 H Creatinine 4.4 H Glucose 128 H POC Glucose 149 H ALT < 5 L Alkaline Phosphatase 144 H Albumin 3.3 L TSH Urine WBC (Auto) U Epithel Cells (Auto) 10/12/17 10/12/17 10/13/17 15:08 16:27 04:25 RBC Hgb Hct RDW Lymph % (Auto) Iron % (Auto) Iron # Seg Neutrophils % Seg Neutrophils # Chloride BUN 34 H Creatinine 5.5 H Glucose 124 H POC Glucose ALT Alkaline Phosphatase Albumin TSH 5.890 H Urine WBC (Auto) > 182.0 H U Epithel Cells (Auto) 59.0 H 10/13/17 10/13/17 10/13/17 06:02 11:52 17:03 RBC Hgb Hct RDW Lymph % (Auto) Iron % (Auto) Iron # Seg Neutrophils % Seg Neutrophils # Chloride BUN Creatinine Glucose POC Glucose 128 H 138 H 163 H ALT Alkaline Phosphatase Albumin TSH Urine WBC (Auto) U Epithel Cells (Auto) 10/13/17 10/14/17 10/14/17 21:48 04:37 04:37 RBC 3.35 L Hgb 9.7 L Hct 30.0 L RDW 18.7 H Lymph % (Auto) 11.8 L Iron % (Auto) 8.9 H Iron # 1.0 H Seg Neutrophils % 77.6 H Seg Neutrophils # 8.3 H Chloride 96.0 L BUN 41 H Creatinine 6.3 H Glucose 127 H POC Glucose 191 H ALT < 5 L Alkaline Phosphatase Albumin 3.0 L TSH Urine WBC (Auto) U Epithel Cells (Auto) 10/14/17 10/14/17 10/14/17 06:34 11:17 23:59 RBC Hgb Hct RDW Lymph % (Auto) Iron % (Auto) Iron # Seg Neutrophils % Seg Neutrophils # Chloride BUN Creatinine Glucose POC Glucose 141 H 188 H 172 H ALT Alkaline Phosphatase Albumin TSH Urine WBC (Auto) U Epithel Cells (Auto) 10/15/17 10/15/17 10/15/17 07:11 12:02 18:53 RBC Hgb Hct RDW Lymph % (Auto) Iron % (Auto) Iron # Seg Neutrophils % Seg Neutrophils # Chloride BUN Creatinine Glucose POC Glucose 153 H 143 H 252 H ALT Alkaline Phosphatase Albumin TSH Urine WBC (Auto) U Epithel Cells (Auto) 10/16/17 10/16/17 10/16/17 00:37 07:35 11:19 RBC Hgb Hct RDW Lymph % (Auto) Iron % (Auto) Iron # Seg Neutrophils % Seg Neutrophils # Chloride BUN Creatinine Glucose POC Glucose 213 H 193 H 343 H ALT Alkaline Phosphatase Albumin TSH Urine WBC (Auto) U Epithel Cells (Auto)
[2017-10-16] MEDS: AMBIEN PO SCH (22:35)
[2017-10-17] MEDS: LOPRESSOR IV SCH ×5 (05:42→21:03)
[2017-10-17] MEDS: MORPHINE IV PRN ×2 (08:27→20:25)
[2017-10-17] MEDS: HumaLOG SUB-Q SCH ×4 (08:45→21:29)
[2017-10-17] MEDS: ASPIRIN PO SCH (09:26)
[2017-10-17] MEDS: COREG PO SCH (09:27)
[2017-10-17] MEDS: SODIUM CHLORIDE FLUSH SYRINGE 10 ML IV SCH ×2 (09:28→21:28)
[2017-10-17] MEDS: PROCARDIA XL PO SCH ×2 (09:28→21:23)
[2017-10-17] MEDS: cefTRIAXone 1 GM in NACL 0.9% 20 ML IV SCH (09:57)
[2017-10-17] MEDS ORDERED: NACL 0.9% 1000 ML 2,000 ML ONE (11:56)
--- NOTE | 2017-10-17 12:20 | Progress Note ---
Subjective Date of service: 10/17/17 Principal diagnosis: ESRD Interval history: reviewed the results of the eradiology study will note further labs reviewed no seizures Objective - Vital Sign Vital Signs - 12hr 10/17/17 10/17/17 10/17/17 00:25 04:43 08:29 Temperature 98.1 F 99.3 F 97.9 F Pulse Rate 70 74 73 Respiratory 20 20 16 Rate Blood Pressure 125/65 131/51 Blood Pressure 124/60 [Right] O2 Sat by Pulse 98 98 99 Oximetry 10/17/17 10/17/17 10/17/17 09:27 10:50 11:00 Temperature 97.7 F Pulse Rate 72 68 68 Respiratory 16 Rate Blood Pressure 107/55 104/58 Blood Pressure [Right] O2 Sat by Pulse Oximetry 10/17/17 10/17/17 10/17/17 11:15 11:30 11:45 Temperature Pulse Rate 69 64 64 Respiratory Rate Blood Pressure 110/61 145/63 94/49 Blood Pressure [Right] O2 Sat by Pulse Oximetry - Laboratory Findings CBC and BMP: 10/14/17 04:37 10/14/17 04:37 Abnormal Lab Findings: Abnormal Labs 10/12/17 10/12/17 10/12/17 14:54 15:08 15:08 RBC 3.38 L Hgb 9.9 L Hct RDW 18.6 H Lymph % (Auto) [place] % (Auto) [place] # Seg Neutrophils % 74.7 H Seg Neutrophils # Chloride 93.5 L BUN 28 H Creatinine 4.4 H Glucose 128 H POC Glucose 149 H ALT < 5 L Alkaline Phosphatase 144 H Albumin 3.3 L TSH Urine WBC (Auto) U Epithel Cells (Auto) 10/12/17 10/12/17 10/13/17 15:08 16:27 04:25 RBC Hgb Hct RDW Lymph % (Auto) [place] % (Auto) [place] # Seg Neutrophils % Seg Neutrophils # Chloride BUN 34 H Creatinine 5.5 H Glucose 124 H POC Glucose ALT Alkaline Phosphatase Albumin TSH 5.890 H Urine WBC (Auto) > 182.0 H U Epithel Cells (Auto) 59.0 H 10/13/17 10/13/17 10/13/17 06:02 11:52 17:03 RBC Hgb Hct RDW Lymph % (Auto) [place] % (Auto) [place] # Seg Neutrophils % Seg Neutrophils # Chloride BUN Creatinine Glucose POC Glucose 128 H 138 H 163 H ALT Alkaline Phosphatase Albumin TSH Urine WBC (Auto) U Epithel Cells (Auto) 10/13/17 10/14/17 10/14/17 21:48 04:37 04:37 RBC 3.35 L Hgb 9.7 L Hct 30.0 L RDW 18.7 H Lymph % (Auto) 11.8 L [place] % (Auto) 8.9 H [place] # 1.0 H Seg Neutrophils % 77.6 H Seg Neutrophils # 8.3 H Chloride 96.0 L BUN 41 H Creatinine 6.3 H Glucose 127 H POC Glucose 191 H ALT < 5 L Alkaline Phosphatase Albumin 3.0 L TSH Urine WBC (Auto) U Epithel Cells (Auto) 10/14/17 10/14/17 10/14/17 06:34 11:17 23:59 RBC Hgb Hct RDW Lymph % (Auto) [place] % (Auto) [place] # Seg Neutrophils % Seg Neutrophils # Chloride BUN Creatinine Glucose POC Glucose 141 H 188 H 172 H ALT Alkaline Phosphatase Albumin TSH Urine WBC (Auto) U Epithel Cells (Auto) 10/15/17 10/15/17 10/15/17 07:11 12:02 18:53 RBC Hgb Hct RDW Lymph % (Auto) [place] % (Auto) [place] # Seg Neutrophils % Seg Neutrophils # Chloride BUN Creatinine Glucose POC Glucose 153 H 143 H 252 H ALT Alkaline Phosphatase Albumin TSH Urine WBC (Auto) U Epithel Cells (Auto) 10/16/17 10/16/17 10/16/17 00:37 07:35 11:19 RBC Hgb Hct RDW Lymph % (Auto) [place] % (Auto) [place] # Seg Neutrophils % Seg Neutrophils # Chloride BUN Creatinine Glucose POC Glucose 213 H 193 H 343 H ALT Alkaline Phosphatase Albumin TSH Urine WBC (Auto) U Epithel Cells (Auto) 10/16/17 10/16/17 10/17/17 15:47 20:59 00:36 RBC Hgb Hct RDW Lymph % (Auto) [place] % (Auto) [place] # Seg Neutrophils % Seg Neutrophils # Chloride BUN Creatinine Glucose POC Glucose 309 H 215 H 217 H ALT Alkaline Phosphatase Albumin TSH Urine WBC (Auto) U Epithel Cells (Auto) 10/17/17 08:47 RBC Hgb Hct RDW Lymph % (Auto) [place] % (Auto) [place] # Seg Neutrophils % Seg Neutrophils # Chloride BUN Creatinine Glucose POC Glucose 140 H ALT Alkaline Phosphatase Albumin TSH Urine WBC (Auto) U Epithel Cells (Auto)
--- NOTE | 2017-10-17 14:19 | Progress Note ---
Assessment and Plan Assessment and plan: Patient is a 57-year-old -[place] woman who presented to the emergency department with complaints of altered mental status by EMS from dialysis clinic. Acute encephalopathy Etiology is likely secondary to sepstic UTI. Patient will continue IV antibiotics MRI negative for acute stroke. Neurology following Av fistula thrombosis, s/p right permcath placed for dialysis s/p Right BKA Gangrene left toes, s/p HITESH ordered Sepsis secondary to UTI Presenting with altered mental status and tachycardia. Patient will continue IV antibiotics. Follow urine culture End-stage renal disease on hemodialysis HNephrology following Hypertension Continue antihypertensives Anemia of chronic dz EPO with HD Insulin-dependent diabetes ADA diet, Accu-Cheks before meals and at bedtime, sliding scale insulin DVT prophylaxis SCD History Interval history: Mental status improved, Now awake,alert No witnessed seizure Hospitalist Physical - Physical exam Narrative exam: General: Not in acute distress, HEENT:Normocephalic, atraumatic Neck:supple,no JVD Lungs: Clear to auscultation bilaterally, no crackles, no wheeze Heart:S1 and S2 regular, no murmurs, rubs or gallop Abd: soft, non tender,non distended, normal bowel sounds Ext: Right BKA, left heel ulcer, av fistula left arm, gangrene, left lower ext, no clubbing or cyanosis Neuro: Awake, alert, oriented x 3,now talking, normal speech,moves all extremities. - Constitutional Vitals: Temp Pulse Resp BP Pulse Ox 97.7 F 68 16 101/48 99 10/17/17 10:50 10/17/17 12:30 10/17/17 10:50 10/17/17 12:45 10/17/17 08:29 General appearance: Present: other (oriented x0, alert) Results - Labs CBC & Chem 7: 10/14/17 04:37 10/14/17 04:37 Labs: Laboratory Last Values WBC 10.7 K/mm3 (4.5-11.0) 10/14/17 04:37 RBC 3.35 M/mm3 (3.65-5.03) L 10/14/17 04:37 Hgb 9.7 gm/dl (10.1-14.3) L 10/14/17 04:37 Hct 30.0 % (30.3-42.9) L 10/14/17 04:37 MCV 90 fl (79-97) 10/14/17 04:37 MCH 29 pg (28-32) 10/14/17 04:37 MCHC 32 % (30-34) 10/14/17 04:37 RDW 18.7 % (13.2-15.2) H 10/14/17 04:37 Plt Count 279 K/mm3 (140-440) 10/14/17 04:37 Lymph % (Auto) 11.8 % (13.4-35.0) L 10/14/17 04:37 [place] % (Auto) 8.9 % (0.0-7.3) H 10/14/17 04:37 Eos % (Auto) 1.2 % (0.0-4.3) 10/14/17 04:37 Baso % (Auto) 0.5 % (0.0-1.8) 10/14/17 04:37 Lymph # 1.3 K/mm3 (1.2-5.4) 10/14/17 04:37 [place] # 1.0 K/mm3 (0.0-0.8) H 10/14/17 04:37 Eos # 0.1 K/mm3 (0.0-0.4) 10/14/17 04:37 Baso # 0.0 K/mm3 (0.0-0.1) 10/14/17 04:37 Seg Neutrophils % 77.6 % (40.0-70.0) H 10/14/17 04:37 Seg Neutrophils # 8.3 K/mm3 (1.8-7.7) H 10/14/17 04:37 Sodium 141 mmol/L (137-145) 10/14/17 04:37 Potassium 4.5 mmol/L (3.6-5.0) 10/14/17 04:37 Chloride 96.0 mmol/L (98-107) L 10/14/17 04:37 Carbon Dioxide 24 mmol/L (22-30) 10/14/17 04:37 Anion Gap 26 mmol/L 10/14/17 04:37 BUN 41 mg/dL (7-17) H 10/14/17 04:37 Creatinine 6.3 mg/dL (0.7-1.2) H 10/14/17 04:37 Estimated GFR 8 ml/min 10/14/17 04:37 BUN/Creatinine Ratio 7 % 10/14/17 04:37 Glucose 127 mg/dL (65-100) H 10/14/17 04:37 POC Glucose 140 (70-105) H 10/17/17 08:47 Hemoglobin A1c 5.6 % (4-6) 10/13/17 04:25 Lactic Acid 0.80 mmol/L (0.7-2.0) 10/12/17 17:37 Calcium 9.4 mg/dL (8.4-10.2) 10/14/17 04:37 Total Bilirubin 0.30 mg/dL (0.1-1.2) 10/14/17 04:37 AST 10 units/L (5-40) 10/14/17 04:37 ALT < 5 units/L (7-56) L 10/14/17 04:37 Alkaline Phosphatase 115 units/L (35-129) 10/14/17 04:37 Total Protein 6.6 g/dL (6.3-8.2) 10/14/17 04:37 Albumin 3.0 g/dL (3.9-5) L 10/14/17 04:37 Albumin/Globulin Ratio 0.8 % 10/14/17 04:37 TSH 5.890 mlU/mL (0.270-4.200) H 10/12/17 15:08 Free T4 1.35 ng/dL (0.76-1.46) 10/13/17 11:10 Urine Color Yellow (Yellow) 10/12/17 16:27 Urine Turbidity Cloudy (Clear) 10/12/17 16:27 Urine pH 6.0 (5.0-7.0) 10/12/17 16:27 Ur Specific [place] 1.018 (1.003-1.030) 10/12/17 16:27 Urine Protein 100 mg/dl mg/dL (Negative) 10/12/17 16:27 Urine Glucose (UA) Neg mg/dL (Negative) 10/12/17 16:27 Urine Ketones Neg mg/dL (Negative) 10/12/17 16:27 Urine Blood Mod (Negative) 10/12/17 16:27 Urine Nitrite Neg (Negative) 10/12/17 16:27 Urine Bilirubin Neg (Negative) 10/12/17 16:27 Urine Urobilinogen < 2.0 mg/dL (<2.0) 10/12/17 16:27 Ur Leukocyte Esterase Mod (Negative) 10/12/17 16:27 Urine WBC (Auto) > 182.0 /HPF (0.0-6.0) H 10/12/17 16:27 Urine RBC (Auto) 105.0 /HPF (0.0-6.0) 10/12/17 16:27 U Epithel Cells (Auto) 59.0 /HPF (0-13.0) H 10/12/17 16:27 Urine Bacteria (Auto) 2+ /HPF (Negative) 10/12/17 16:27 Urine WBC Clumps 3+ /HPF 10/12/17 16:27 Urine Opiates Screen Presumptive negative 10/12/17 16:27 Urine Methadone Screen Presumptive negative 10/12/17 16:27 Ur Barbiturates Screen Presumptive negative 10/12/17 16:27 Ur Phencyclidine Scrn Presumptive negative 10/12/17 16:27 Ur Amphetamines Screen Presumptive negative 10/12/17 16:27 U Benzodiazepines Scrn Presumptive negative 10/12/17 16:27 Urine Cocaine Screen Presumptive negative 10/12/17 16:27 U Marijuana (THC) Screen Presumptive negative 10/12/17 16:27 Drugs of Abuse Note Disclamer 10/12/17 16:27 Plasma/Serum Alcohol < 0.01 % (0-0.07) 10/12/17 15:08
--- NOTE | 2017-10-17 14:37 | Progress Note ---
Assessment and Plan - Patient Problems (1) ESRD on dialysis Current Visit: Yes Status: Acute Plan to address problem: cont HD on MWF schedule (2) Encephalopathy acute Current Visit: Yes Status: Acute Plan to address problem: Suspect toxic encephalopathy. 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 Urine culture has been done. UCx showed brigido albicans, cont fluconazole, dose renally adjusted. (4) Anemia in chronic kidney disease Current Visit: No Status: Acute Plan to address problem: Give Erythropoetin on dialysis (5) Hypertensive chronic kidney disease with stage 5 chronic kidney disease or end stage renal disease Current Visit: No Status: Chronic Plan to address problem: Continue current medications. Follow blood pressure on current medications (6) Type 2 diabetes mellitus with diabetic chronic kidney disease Current Visit: No Status: Chronic Plan to address problem: glucose control as per primary attending Subjective Date of service: 10/17/17 Principal diagnosis: ESRD Interval history: Pt awake, alert, oriented to person, place. Objective - Vital Signs Vital signs: Vital Signs - 12hr 10/17/17 10/17/17 10/17/17 04:43 08:29 09:27 Temperature 99.3 F 97.9 F Pulse Rate 74 73 72 Respiratory 20 16 Rate Blood Pressure 131/51 Blood Pressure 124/60 [Right] O2 Sat by Pulse 98 99 Oximetry 10/17/17 10/17/17 10/17/17 10:50 11:00 11:15 Temperature 97.7 F Pulse Rate 68 68 69 Respiratory 16 Rate Blood Pressure 107/55 104/58 110/61 Blood Pressure [Right] O2 Sat by Pulse Oximetry 10/17/17 10/17/17 10/17/17 11:30 11:45 12:00 Temperature Pulse Rate 64 64 68 Respiratory Rate Blood Pressure 145/63 94/49 94/47 Blood Pressure [Right] O2 Sat by Pulse Oximetry 10/17/17 10/17/17 10/17/17 12:15 12:30 12:45 Temperature Pulse Rate 66 68 Respiratory Rate Blood Pressure 103/52 100/48 101/48 Blood Pressure [Right] O2 Sat by Pulse Oximetry - General Appearance General appearance: well-developed, well-nourished, appears stated age EENT: ATNC, PERRL, mucous membranes moist Neck: no JVD Respiratory: Present: Clear to Ascultation Cardiology: regular, S1S2 Gastrointestinal: normoactive bowel sounds Integumentary: no rash Neurologic: no focal deficit, alert and oriented x3, strength 5/5, CN 3-12 intact Psychiatric: mood/affect appropriate, cooperative - Lab 10/14/17 04:37 10/14/17 04:37 Most recent lab results Calcium 9.4 mg/dL (8.4-10.2) 10/14/17 04:37
[2017-10-17] MEDS ORDERED: DIFLUCAN/NS 100 MG/50 ML 100 MG/50 ML BAG IV SCH (16:00)
[2017-10-17] MEDS: AMBIEN PO SCH (21:23)
[2017-10-17] MEDS: LANTUS SUB-Q SCH (21:24)
[2017-10-18] MEDS: MORPHINE IV PRN ×3 (00:57→10:35)
[2017-10-18] MEDS: HEPARIN SUB-Q SCH ×2 (00:57→10:39)
[2017-10-18] MEDS: LOPRESSOR IV SCH ×2 (01:39→05:51)
[2017-10-18] MEDS: HumaLOG SUB-Q SCH (10:15)
[2017-10-18] MEDS: PROCARDIA XL PO SCH (10:34)
[2017-10-18] MEDS: COREG PO SCH (10:34)
[2017-10-18] MEDS: ASPIRIN PO SCH (10:35)
[2017-10-18] MEDS: cefTRIAXone 1 GM in NACL 0.9% 20 ML IV SCH (11:07)
[2017-10-18] MEDS: SODIUM CHLORIDE FLUSH SYRINGE 10 ML IV SCH (11:10)
--- NOTE | 2017-10-18 14:46 | Progress Note ---
Assessment and Plan This pt is s/p a left BKA ~2wks ago (by Dr Pratt at [facility]), and does not presently have knee immobilizer in-place. She has what appears to be an early contracture developing. Recommend a knee immobilizer to be placed and a physical therapy consult to be placed. Pt evaluated earlier this admission due to a thrombosed LUE av access. A perma- cath was placed, which she is currently using for HD. Her access is >7 yrs old and not likely salvageable. She will need to f/u as an outpt to arrange for new access. She has a large left heel blackened eschar. She has a foot drop and is unable to move her toes on the right foot. Her arterial duplex shows monophasic flow distally with decreased velocities from the mid sfa down. The pt has been bed bound for at least 2 months per her account. She has been unable to heal distal wounds thus far and I'm concerned she has a non-functional and likely non- salvageable foot. She will likely need a left AKA. I discussed these things with the pt. She is for discharge back to rehab soon. She can f/u with either Dr Pratt or our service as an outpt to arrange for her new access, and likely L AKA. Subjective Date of service: 10/18/17 Principal diagnosis: ESRD Interval history: Pt is awake and alert without specific complaints at present. Objective - Constitutional Vitals: Vital Signs - 12hr 10/18/17 10/18/17 10/18/17 04:00 07:35 10:34 Temperature 98.6 F Pulse Rate 84 79 78 Respiratory 18 Rate Blood Pressure 186/67 O2 Sat by Pulse 96 Oximetry General appearance: Present: no acute distress - EENT Eyes: EOM intact ENT: hearing intact - Neck Neck: supple (RIJ PC in place, bandages c,d,I) - Respiratory Respiratory effort: normal Extremities: normal temperature, abnormal (Right BKA, incision intact, kasandra in place, no erythema or drainage. LLE, large blackened heel eschar, dry without erythema. LUE thrombosed av access with 2 large pseudo-aneurysms. ) - Neurologic Neurologic: no focal deficits - Psychiatric Psychiatric: appropriate mood/affect, intact judgment & insight, cooperative - Labs CBC & Chem 7: 10/14/17 04:37 10/14/17 04:37 Labs: Abnormal lab results 10/17/17 10/18/17 Range/Units 21:26 06:00 POC Glucose 163 H 60 L (70-105)
[2017-10-18 14:54] VITALS: BP 128/46
--- NOTE | 2017-10-19 12:07 | Vascular Lab Report ---
LOWER EXTREMITY ARTERIAL DUPLEX: REASON FOR EXAM: Gangrene of the left lower extremity. COMMENTS ON THE RIGHT: Triphasic waveforms are seen proximally. Patient has a below knee amputation. Biphasic waveforms are seen to the distal SFA. COMMENTS ON THE LEFT: Triphasic waveforms are seen proximally. Monophasic waveforms are seen distally. Evidence of distal superficial femoral artery occlusive disease is identified. Scattered plaque is seen throughout. Findings are consistent with abnormal perfusion. Findings are not consistent with the ability to heal distal wounds. IMPRESSION: RIGHT: Patient is a below knee indications. Flow appears to be adequate. LEFT:Distal flow is inadequate for healing ulcer. Recommend further evaluation.
== END 2017-10-18 17:00 | DRG 871 ==
LOC: ED 14:24 → 4A 18:22 → 3A 10-18 14:18
PROVIDERS: ADMIT Internal Medicine; ATTEND Internal Medicine
PROC: 0JH63XZ Insertion of Tunneled Vascular Access Device into Chest Subcutaneous Tissue and Fascia, Percutaneous Approach (ICD-10-PCS; principal; 2017-10-14)
PROC: 02H633Z Insertion of Infusion Device into Right Atrium, Percutaneous Approach (ICD-10-PCS; 2017-10-14)
PROC: B5131ZA Fluoroscopy of Right Jugular Veins using Low Osmolar Contrast, Guidance (ICD-10-PCS; 2017-10-14)
PROC: 5A1D70Z Performance of Urinary Filtration, Intermittent, Less than 6 Hours Per Day (ICD-10-PCS; 2017-10-14)
PROC: 5A1D70Z Performance of Urinary Filtration, Intermittent, Less than 6 Hours Per Day (ICD-10-PCS; 2017-10-17)
DX: A41.9 Sepsis, unspecified organism (principal); N18.6 End stage renal disease; G93.41 Metabolic encephalopathy; N39.0 Urinary tract infection, site not specified; I12.0 Hypertensive chronic kidney disease with stage 5 chronic kidney disease or end stage renal disease; E11.52 Type 2 diabetes mellitus with diabetic peripheral angiopathy with gangrene; I96 Gangrene, not elsewhere classified; E11.22 Type 2 diabetes mellitus with diabetic chronic kidney disease; I16.0 Hypertensive urgency; D63.8 Anemia in other chronic diseases classified elsewhere; I77.0 Arteriovenous fistula, acquired; Z86.73 Personal history of transient ischemic attack (TIA), and cerebral infarction without residual deficits; Z90.710 Acquired absence of both cervix and uterus; Z89.511 Acquired absence of right leg below knee; Z82.49 Family history of ischemic heart disease and other diseases of the circulatory system; Z79.4 Long term (current) use of insulin
CPT/HCPCS: 36415; 36558; 70450; 70544; 70551; 74018; 77001; 80048; 80053; 80307; 80320; 81001; 82140; 82962; 83036; 84439; 84443; 85025; 87040; 87086; 93005; 93010; 93922; 93925; 96365; 96375; 96376; C1750; G0480; G8996-GN; G8997-GN; J0360; J0690; J0696; J0885; J1450; J1644; J1815; J2250; J2270; J3010; J7030; J7050

== ENCOUNTER 2017-11-07 13:56 | Inpatient (IN) | payer MEDICARE, OTHER ==
[2017-11-07 15:33] LABS: Basophils # (Auto) 0.1 K/mm3 (0.0-0.1); Basophils % (Auto) 0.5 % (0.0-1.8); Eosinophils % (Auto) 0.3 % (0.0-4.3); Hematocrit 22.4 % (30.3-42.9); Hemoglobin 6.9 gm/dl (10.1-14.3); Lymphocytes % (Auto) 6.2 % (13.4-35.0); Mean Corpuscular HGB Conc 31 % (30-34); Mean Corpuscular Hemoglobin 28 pg (28-32); Mean Corpuscular Volume 93 fl (79-97); Monocytes # (Auto) 0.9 K/mm3 (0.0-0.8); Monocytes % (Auto) 5.5 % (0.0-7.3); Platelet Count 210 K/mm3 (140-440); Red Blood Count 2.42 M/mm3 (3.65-5.03); Red Cell Distribution Width 17.5 % (13.2-15.2)
[2017-11-07 15:49] LABS: INR 1.29 (0.87-1.13); Partial Thromboplastin Time 39.4 Sec. (24.2-36.6)
[2017-11-07 15:58] LABS: Albumin 2.6 g/dL (3.9-5); BUN/Creatinine Ratio 8; Blood Urea Nitrogen 36 mg/dL (7-17); Calcium 9.3 mg/dL (8.4-10.2); Hemolysis Index 0
[2017-11-07 15:59] LABS: Alanine Aminotransferase < 5 units/L (7-56)
[2017-11-07 16:04] LABS: Free T4 (Free Thyroxine) 1.19 ng/dL (0.76-1.46)
[2017-11-07 16:25] LABS: Chol/HDL Ratio 3.45 %
--- NOTE | 2017-11-07 16:38 | XRay Report ---
FINAL REPORT EXAM: XR CHEST 1V AP HISTORY: hypoxia TECHNIQUE: AP portable view of the chest PRIORS: None. FINDINGS: Lines, tubes, and devices: Double-lumen right jugular catheter terminates in the distal superior vena cava near the right atrial opening there is a mesh vascular stent in the left subclavian region. Surgical clips are present over the lateral right chest Lungs and pleura: Trachea is normal in position. Blunting of the right costophrenic angle suggesting small pleural effusion or chronic pleural reaction. Lungs are otherwise clear of infiltrate, vascular congestion, or pneumothorax. Cardiomediastinal silhouette: Calcification of the aorta is seen. Cardiomegaly is moderate. Other: Bony structures are intact. Calcification of the right subclavian and axillary vessels is seen. IMPRESSION: Blunting of the right costophrenic angle suggesting small pleural effusion or chronic pleural reaction. Cardiomegaly.
--- NOTE | 2017-11-07 16:52 | Cat Scan Report ---
FINAL REPORT EXAM: CT HEAD/BRAIN WO CON HISTORY: transient AMS TECHNIQUE: Standard unenhanced CT of the head at 5.0 millimeter axial increments. PRIORS: CT head 10/12/2017 FINDINGS: The ventricular system is normal in size and configuration. There is no evidence for parenchymal volume loss. There is patchy low-density in the periventricular white matter consistent with small vessel ischemic changes. There is a remote lacunar infarct in the left external capsule and in the left thalamus. There is no evidence for mass lesion, mass effect, midline shift, acute intracranial hemorrhage, or acute ischemia/ infarction. No evidence for acute skull fracture is seen. No abnormality in the overlying scalp soft tissues is seen. Visualized paranasal sinuses demonstrates mucosal thickening in the right sphenoid sinus and right frontal sinus, stable. IMPRESSION: Small-vessel ischemic changes. No acute intracranial process noted. No change. Stable chronic sinusitis.
--- NOTE | 2017-11-07 17:27 | Emergency Department Report ---
- General Chief complaint: Weakness Stated complaint: ALTERED MENTAL STATUS Time Seen by Provider: 11/07/17 17:26 Source: EMS Mode of arrival: Stretcher Limitations: No Limitations - History of Present Illness Initial comments: Patient became altered during dialysis. She was transferred to the emergency room. MD Complaint: generalized weakness -: Gradual Location: generalized Severity: Unable to Determine Improves with: none Worsens with: none Context: other (during dialysis) Associated Symptoms: denies other symptoms - Related Data Home Medications Medication Instructions Recorded Confirmed Last Taken Insulin Glargine,Hum.rec.anlog 20 units SQ QHS 06/23/17 10/12/17 Unknown [Lantus] cloNIDine [Catapres] 0.1 mg PO TID PRN 06/23/17 10/12/17 Unknown Previous Rx's Medication Instructions Recorded Last Taken Type ALBUTEROL NEB's [Proventil 0.083% 2.5 mg IH Q4HRT PRN nebu 06/25/17 Unknown Rx NEBS] Carvedilol [Coreg] 12.5 mg PO DAILY tablet 06/25/17 Unknown Rx HYDROcodone/APAP 7.5-325 [[place] 1 each PO Q6H PRN #30 tablet 06/25/17 Unknown Rx 7.5-325 mg TAB] NIFEdipine [Nifedipine ER] 60 mg PO BID #60 tab.er.24 06/25/17 Unknown Rx Zolpidem [Ambien] 10 mg PO QHS #15 tablet 06/25/17 Unknown Rx Fluconazole [Diflucan TAB] 100 mg PO QDAY #7 tablet 10/18/17 Unknown Rx Allergies Allergy/AdvReac Type Severity Reaction Status Date / Time No Known Allergies Allergy Verified 06/22/17 11:30 ED Review of Systems ROS: Stated complaint: ALTERED MENTAL STATUS Other details as noted in HPI Comment: Unobtainable due to pts medical conditions (altered mental status) ED Past Medical Hx - Past Medical History Hx Hypertension: Yes Hx CVA: Yes Hx Congestive Heart Failure: No Hx Diabetes: Yes Hx Renal Disease: Yes Hx Asthma: No Hx COPD: No Additional medical history: unspecified AMS. PVD - Surgical History Additional Surgical History: Left arm shunt, left foot surgery, hysterectomy. - Social History Smoking Status: Unknown if ever smoked - Medications Home Medications: Home Medications Medication Instructions Recorded Confirmed Last Taken Type Insulin Glargine,Hum.rec.anlog 20 units SQ QHS 06/23/17 10/12/17 Unknown History [Lantus] cloNIDine [Catapres] 0.1 mg PO TID PRN 06/23/17 10/12/17 Unknown History ALBUTEROL NEB's [Proventil 0.083% 2.5 mg IH Q4HRT PRN nebu 06/25/17 10/12/17 Unknown Rx NEBS] Carvedilol [Coreg] 12.5 mg PO DAILY tablet 06/25/17 10/12/17 Unknown Rx HYDROcodone/APAP 7.5-325 [[place] 1 each PO Q6H PRN #30 tablet 06/25/17 10/12/17 Unknown Rx 7.5-325 mg TAB] NIFEdipine [Nifedipine ER] 60 mg PO BID #60 tab.er.24 06/25/17 10/12/17 Unknown Rx Zolpidem [Ambien] 10 mg PO QHS #15 tablet 06/25/17 10/12/17 Unknown Rx Fluconazole [Diflucan TAB] 100 mg PO QDAY #7 tablet 10/18/17 Unknown Rx ED Physical Exam - General Limitations: Altered Mental Status General appearance: alert - Head Head exam: Present: atraumatic, normocephalic, normal inspection - Eye Eye exam: Present: normal appearance, PERRL - ENT ENT exam: Present: normal exam, mucous membranes moist - Neck Neck exam: Present: normal inspection - Respiratory Respiratory exam: Present: normal lung sounds bilaterally. Absent: wheezes, rales - Cardiovascular Cardiovascular Exam: Present: regular rate, normal rhythm, normal heart sounds - GI/Abdominal GI/Abdominal exam: Present: soft, normal bowel sounds. Absent: distended, tenderness, guarding, rebound - Extremities Exam Extremities exam: Present: normal inspection - Back Exam Back exam: Present: normal inspection - Neurological Exam Neurological exam: Present: alert - Psychiatric Psychiatric exam: Present: flat affect - Skin Skin exam: Present: warm, dry, intact - Assessment Assessment Interval: Baseline (Patient unable to follow commands due to altered mental status.) - Motor Leg 6b. Motor Leg Right: no movement ED Course Vital Signs 11/07/17 11/07/17 11/07/17 13:57 15:40 18:35 Temperature 98.5 F 98.9 F 98.6 F Pulse Rate 59 L 56 L 59 L Respiratory 16 20 18 Rate Blood Pressure 107/33 Blood Pressure 124/65 134/56 [Right] O2 Sat by Pulse 100 99 99 Oximetry 11/07/17 11/07/17 11/07/17 20:10 20:30 20:45 Temperature 98.1 F Pulse Rate 58 L 58 L 58 L Respiratory 14 11 L 10 L Rate Blood Pressure 116/46 129/47 Blood Pressure 134/48 [Right] O2 Sat by Pulse 100 100 100 Oximetry 11/07/17 11/07/17 11/07/17 21:01 21:15 21:31 Temperature Pulse Rate 59 L 59 L 58 L Respiratory 15 12 14 Rate Blood Pressure 137/45 137/45 137/45 Blood Pressure [Right] O2 Sat by Pulse 100 Oximetry 11/07/17 11/07/17 11/07/17 21:45 22:00 22:15 Temperature Pulse Rate 59 L 58 L 58 L Respiratory 12 11 L 11 L Rate Blood Pressure 127/50 123/50 130/50 Blood Pressure [Right] O2 Sat by Pulse 100 100 100 Oximetry 11/07/17 11/07/17 11/07/17 22:31 22:45 23:01 Temperature Pulse Rate 58 L 59 L 57 L Respiratory 12 13 11 L Rate Blood Pressure 116/50 106/52 122/51 Blood Pressure [Right] O2 Sat by Pulse 100 100 98 Oximetry 11/07/17 11/07/17 11/07/17 23:15 23:31 23:45 Temperature Pulse Rate 57 L 58 L 57 L Respiratory 12 12 11 L Rate Blood Pressure 125/53 130/53 135/53 Blood Pressure [Right] O2 Sat by Pulse 98 100 99 Oximetry - Reevaluation(s) Reevaluation #1: 11/08/17 00:21 I consulted the chief informatics officer on-call Dr Ml Alonso. He would dialyze patient in the morning. Patient care was discussed with the hospitalist on-call Dr Davidson. She will admit patient to the hospital for further evaluation and management. ED Medical Decision Making - Lab Data Result diagrams: 11/07/17 15:11 11/07/17 15:11 - EKG Data -: EKG Interpreted by Me EKG shows normal: sinus rhythm Rate: normal (60) - EKG Data When compared to previous EKG there are: previous EKG unavailable Interpretation: nonspecific ST-T wave tamir, LVH, other (LBBB, Early repolarization.) - Radiology Data Radiology results: report reviewed, image reviewed - Medical Decision Making Altered Mental Status. Critical Care Time: Yes Critical care time in (mins) excluding proc time.: 35 Critical care attestation.: If time is entered above; I have spent that time in minutes in the direct care of this critically ill patient, excluding procedure time. ED Disposition Clinical Impression: Elevated troponin level, ESRD needing dialysis Altered mental status Qualifiers: Altered mental status type: unspecified Qualified Code(s): R41.82 - Altered mental status, unspecified CHF (congestive heart failure) Qualifiers: Heart failure type: unspecified Heart failure chronicity: unspecified Qualified Code(s): I50.9 - Heart failure, unspecified Disposition: DC-09 OP ADMIT IP TO THIS HOSP Is pt being admited?: Yes Does the pt Need Aspirin: Yes Condition: Stable
[2017-11-07] MEDS ORDERED: ASPIRIN PR ONE ×2 (17:40→20:58)
[2017-11-07] MEDS ORDERED: TYLENOL PO PRN (23:06)
[2017-11-07] MEDS ORDERED: ZOFRAN IV PRN (23:06)
[2017-11-07] MEDS ORDERED: SODIUM CHLORIDE FLUSH SYRINGE 10 ML IV PRN (23:06)
[2017-11-07] MEDS ORDERED: D50W (25GM) Syringe IV PRN (23:18)
[2017-11-07] MEDS ORDERED: HEPARIN 10,000 UNITS/10 ML IV ONE (23:41)
[2017-11-07] MEDS ORDERED: VANCOMYCIN PHARMACY TO DOSE IV SCH (23:45)
[2017-11-07] MEDS ORDERED: HEPARIN/ 0.45% NACL-25,000 UNIT/500 ML 25,000 UNIT/500 ML BAG IV SCH (23:45)
[2017-11-08] MEDS ORDERED: NORCO 5/325 ONE (00:37)
[2017-11-08] MEDS ORDERED: VANCOMYCIN 1,750 MG in NACL 0.9% 500 ML 500 ML IV ONE (01:00)
[2017-11-08] MEDS ORDERED: NACL 0.9% 500 ML 500 ML IV ONE (01:24)
[2017-11-08 03:12] LABS: Creatine Kinase MB 1.4 ng/mL (0.0-4.0)
--- NOTE | 2017-11-08 03:47 | History and Physical Report ---
History of Present Illness Date of examination: 11/07/17 Date of admission: 11/07/17 23:06 Chief complaint: Altered mental status History of present illness: Patient is a 57 year old -[place] female with history of end-stage renal disease on hemodialysis, a resident of prison who was brought to the ED on account of altered mental status. Patient was a poor historian, so hx was obtained from the chart. It was reported that the patient became altered during dialysis, so she was brought to the ED for further evaluation. No reported history of fever, chest pain or shortness of breath. Past History Past Medical History: anemia, diabetes, hypertension, PVD, other (ESRD ON HD, CVA, ) Past Surgical History: hysterectomy, Other (LT FOOT SURGERY, RT BKA, RT DIALYSIS SHUNT PLACEMENT) Social history: other (she denies tobacco, alcohol or illicit drug use.) Family history: other (reviewed, and noncontributory) Medications and Allergies Allergies Allergy/AdvReac Type Severity Reaction Status Date / Time No Known Allergies Allergy Verified 06/22/17 11:30 Home Medications Medication Instructions Recorded Confirmed Last Taken Type Insulin Glargine,Hum.rec.anlog 20 units SQ QHS 06/23/17 10/12/17 Unknown History [Lantus] cloNIDine [Catapres] 0.1 mg PO TID PRN 06/23/17 10/12/17 Unknown History ALBUTEROL NEB's [Proventil 0.083% 2.5 mg IH Q4HRT PRN nebu 06/25/17 10/12/17 Unknown Rx NEBS] Carvedilol [Coreg] 12.5 mg PO DAILY tablet 06/25/17 10/12/17 Unknown Rx HYDROcodone/APAP 7.5-325 [[place] 1 each PO Q6H PRN #30 tablet 06/25/17 10/12/17 Unknown Rx 7.5-325 mg TAB] NIFEdipine [Nifedipine ER] 60 mg PO BID #60 tab.er.24 06/25/17 10/12/17 Unknown Rx Zolpidem [Ambien] 10 mg PO QHS #15 tablet 06/25/17 10/12/17 Unknown Rx Fluconazole [Diflucan TAB] 100 mg PO QDAY #7 tablet 10/18/17 Unknown Rx Active Meds: Active Medications Acetaminophen (Tylenol) 650 mg PO Q4H PRN PRN Reason: Pain MILD(1-3)/Fever >100.5/ESTEBAN Acetaminophen/Hydrocodone Bitart ([place] 5/325) 1 each PO Q6H PRN PRN Reason: Pain, Moderate (4-6) Aspirin (Aspirin) 325 mg PO QDAY ASHLEY Dextrose (D50w (25gm) Syringe) 50 ml IV PRN PRN PRN Reason: Hypoglycemia Insulin Glargine (Lantus) 10 units SUB-Q QHS ASHLEY Insulin Human Regular (Humulin R) 0 units SUB-Q ACHS ASHLEY; Protocol Ondansetron HCl (Zofran) 4 mg IV Q8H PRN PRN Reason: Nausea And Vomiting Sodium Chloride (Sodium Chloride Flush Syringe 10 Ml) 10 ml IV BID ASHLEY Sodium Chloride (Sodium Chloride Flush Syringe 10 Ml) 10 ml IV PRN PRN PRN Reason: LINE FLUSH Vancomycin HCl (Vancomycin Pharmacy To Dose) 1 each IV PKCONSULT ASHLEY; Protocol Review of Systems All systems: negative (except as documented in the HPI, all other systems were reviewed and negative.) Exam - Constitutional Vitals: Temp Pulse Resp BP Pulse Ox 98.1 F 57 L 11 L 135/53 99 11/07/17 20:10 11/07/17 23:45 11/07/17 23:45 11/07/17 23:45 11/07/17 23:45 General appearance: Present: no acute distress, other (Alert and oriented 3) - EENT Eyes: Present: PERRL, EOM intact ENT: hearing intact, clear oral mucosa - Neck Neck: Present: supple, normal ROM - Respiratory Respiratory effort: normal Respiratory: bilateral: diminished - Cardiovascular Rhythm: other (bradycardia with regular rhythm) Heart Sounds: Present: S1 & S2. Absent: rub, click - Extremities Extremities: abnormal (ulcers noted over RT stump and left leg) - Abdominal General gastrointestinal: Present: soft, non-tender, non-distended, normal bowel sounds - Integumentary Integumentary: Present: erythema (Decubitus ulcers) - Neurologic Neurologic: other (pt is bedridden) Results - Labs CBC & Chem 7: 11/07/17 15:11 11/07/17 15:11 Labs: Laboratory Last Values WBC 15.6 K/mm3 (4.5-11.0) H 11/07/17 15:11 RBC 2.42 M/mm3 (3.65-5.03) L 11/07/17 15:11 Hgb 6.9 gm/dl (10.1-14.3) L 11/07/17 15:11 Hct 22.4 % (30.3-42.9) L 11/07/17 15:11 MCV 93 fl (79-97) 11/07/17 15:11 MCH 28 pg (28-32) 11/07/17 15:11 MCHC 31 % (30-34) 11/07/17 15:11 RDW 17.5 % (13.2-15.2) H 11/07/17 15:11 Plt Count 210 K/mm3 (140-440) 11/07/17 15:11 Lymph % (Auto) 6.2 % (13.4-35.0) L 11/07/17 15:11 [place] % (Auto) 5.5 % (0.0-7.3) 11/07/17 15:11 Eos % (Auto) 0.3 % (0.0-4.3) 11/07/17 15:11 Baso % (Auto) 0.5 % (0.0-1.8) 11/07/17 15:11 Lymph # 1.0 K/mm3 (1.2-5.4) L 11/07/17 15:11 [place] # 0.9 K/mm3 (0.0-0.8) H 11/07/17 15:11 Eos # 0.0 K/mm3 (0.0-0.4) 11/07/17 15:11 Baso # 0.1 K/mm3 (0.0-0.1) 11/07/17 15:11 Seg Neutrophils % 87.5 % (40.0-70.0) H 11/07/17 15:11 Seg Neutrophils # 13.6 K/mm3 (1.8-7.7) H 11/07/17 15:11 PT 16.8 Sec. (12.2-14.9) H 11/07/17 15:11 INR 1.29 (0.87-1.13) H 11/07/17 15:11 APTT 39.4 Sec. (24.2-36.6) H 11/07/17 15:11 Sodium 136 mmol/L (137-145) L 11/07/17 15:11 Potassium 3.9 mmol/L (3.6-5.0) 11/07/17 15:11 Chloride 93.7 mmol/L (98-107) L 11/07/17 15:11 Carbon Dioxide 26 mmol/L (22-30) 11/07/17 15:11 Anion Gap 20 mmol/L 11/07/17 15:11 BUN 36 mg/dL (7-17) H 11/07/17 15:11 Creatinine 4.6 mg/dL (0.7-1.2) H 11/07/17 15:11 Estimated GFR 12 ml/min 11/07/17 15:11 BUN/Creatinine Ratio 8 % 11/07/17 15:11 Glucose 213 mg/dL (65-100) H 11/07/17 15:11 POC Glucose 203 (70-105) H 11/07/17 19:25 Calcium 9.3 mg/dL (8.4-10.2) 11/07/17 15:11 Total Bilirubin 0.30 mg/dL (0.1-1.2) 11/07/17 15:11 AST 6 units/L (5-40) 11/07/17 15:11 ALT < 5 units/L (7-56) L 11/07/17 15:11 Alkaline Phosphatase 155 units/L (35-129) H 11/07/17 15:11 CK-MB (CK-2) 1.4 ng/mL (0.0-4.0) 11/08/17 01:47 Troponin T 2.290 ng/mL (0.00-0.029) H* 11/07/17 15:11 NT-Pro-B Natriuret Pep > 92870 pg/mL (0-900) H 11/07/17 15:11 Total Protein 5.6 g/dL (6.3-8.2) L 11/07/17 15:11 Albumin 2.6 g/dL (3.9-5) L 11/07/17 15:11 Albumin/Globulin Ratio 0.9 % 11/07/17 15:11 Triglycerides 175 mg/dL (2-149) H 11/07/17 15:11 Cholesterol 114 mg/dL (50-199) 11/07/17 15:11 LDL Cholesterol Direct 40 mg/dL (50-130) L 11/07/17 15:11 HDL Cholesterol 33 mg/dL (40-59) L 11/07/17 15:11 Cholesterol/HDL Ratio 3.45 % 11/07/17 15:11 TSH 3.420 mlU/mL (0.270-4.200) 11/07/17 15:11 Free T4 1.19 ng/dL (0.76-1.46) 11/07/17 15:11 Blood Type B POSITIVE 11/08/17 01:47 Antibody Screen Negative 11/08/17 01:47 Crossmatch See Detail 11/08/17 01:47 Assessment and Plan Assessment and plan: Acute metabolic encephalopathy -Improved -CT head negative SIRS -Probably secondary to infected decubitus and BLE ulcers -Patient started on IV antibiotic with vancomycin -Follow up blood culture results Elevated troponin, probably secondary to demand ischemia -We will continue serial troponin level monitoring -Cardiology consult. IDDM2 with hyperglycemia -Patient will be placed on both basal and prandial insulin regimen Acute on chronic anemia -For blood transfusion with PRBC during dialysis Hypervolemia sec to ESRD -Nephrology consulted for HD Decubital and BLE ulcers -Wound care nurse consulted HTN -stable Prophylaxis -DVT prophylaxis with SCD 40 minutes spent coordinating care
[2017-11-08] MEDS ORDERED: MORPHINE ONE (04:07)
[2017-11-08] MEDS: MORPHINE IV PRN (04:13)
[2017-11-08] MEDS ORDERED: NACL 0.9% 500 ML 500 ML ONE (04:28)
[2017-11-08] MEDS ORDERED: HEPARIN SUB-Q SCH (06:00)
[2017-11-08] MEDS: HumuLIN R SUB-Q SCH ×4 (08:20→21:51)
[2017-11-08 09:47] LABS: Calcium 9.6 mg/dL (8.4-10.2)
--- NOTE | 2017-11-08 09:57 | Progress Note ---
Assessment and Plan Assessment and plan: Patient is 57 yo woman from [place] with a h/o hypertension, IDDM, CVA, ESRD on HD, PAD s/p right BKA, * pCXR reported blunting of the right costophrenic angle suggesting small pleural effusion or chronic pleural reaction, Cardiomegaly * CTH wo contrast reported small vessell ischemic changes, no acute intracranial process noted, no change, stable chronic sinusitis -SIRS with early sepsis from ?infected pressure ulcer, leg ulcers: iv abx, wound care consult -Stomp infection with kasandra still in place: wound care consulted -Elevated troponins: Consulted Cardiology -ESRD on HD: consult Nephrology -Acute on chronic anemia of chronic disease: blood transfusion with HD -IDDM with hyperglycemia: add ssi, ada History Interval history: Patient was seen and examined. Follow-up on current diagnosis. Overnight uneventful. Patient denies any chest pain, shortness breath, nausea/vomiting or severe headaches. Imaging, nursing note, chart, labs and old chart reviewed. Discussed with patient. Hospitalist Physical - Physical exam Narrative exam: GEN: chronically debilated, ill appearing NAD, Awake, Alert, Orientated HEENT: NCAT, EOMI, PERRL, OP Clear NECK: supple, no adenopathy, no thyromegaly, no JVD CVS/HEART: RRR, normal S1S2, pulses present bilaterally CHEST/LUNGS: CTA B, Symmetrical chest expansion, good air entry bilaterally GI/Abdomen: soft, NTND, good bowel sounds, no guarding or rebound /Bladder: no suprapubic tenderness, no CVA or paraspinal tenderness EXT/Skin: necrotic left foot, unstageable deep sacral ulcer MSK: right aka, Neuro: CN 2-12 grossly intact, no new focal deficits Psych: calm - Constitutional Vitals: Temp Pulse Resp BP Pulse Ox 97.5 F L 52 L 18 140/54 2 L 11/08/17 08:25 11/08/17 08:25 11/08/17 08:25 11/08/17 08:25 11/08/17 08:25 General appearance: Present: no acute distress, other (Alert and oriented 3) Results - Labs CBC & Chem 7: 11/07/17 15:11 11/08/17 09:04 Labs: Laboratory Last Values WBC 15.6 K/mm3 (4.5-11.0) H 11/07/17 15:11 RBC 2.42 M/mm3 (3.65-5.03) L 11/07/17 15:11 Hgb 6.9 gm/dl (10.1-14.3) L 11/07/17 15:11 Hct 22.4 % (30.3-42.9) L 11/07/17 15:11 MCV 93 fl (79-97) 11/07/17 15:11 MCH 28 pg (28-32) 11/07/17 15:11 MCHC 31 % (30-34) 11/07/17 15:11 RDW 17.5 % (13.2-15.2) H 11/07/17 15:11 Plt Count 210 K/mm3 (140-440) 11/07/17 15:11 Lymph % (Auto) 6.2 % (13.4-35.0) L 11/07/17 15:11 [place] % (Auto) 5.5 % (0.0-7.3) 11/07/17 15:11 Eos % (Auto) 0.3 % (0.0-4.3) 11/07/17 15:11 Baso % (Auto) 0.5 % (0.0-1.8) 11/07/17 15:11 Lymph # 1.0 K/mm3 (1.2-5.4) L 11/07/17 15:11 [place] # 0.9 K/mm3 (0.0-0.8) H 11/07/17 15:11 Eos # 0.0 K/mm3 (0.0-0.4) 11/07/17 15:11 Baso # 0.1 K/mm3 (0.0-0.1) 11/07/17 15:11 Seg Neutrophils % 87.5 % (40.0-70.0) H 11/07/17 15:11 Seg Neutrophils # 13.6 K/mm3 (1.8-7.7) H 11/07/17 15:11 PT 16.8 Sec. (12.2-14.9) H 11/07/17 15:11 INR 1.29 (0.87-1.13) H 11/07/17 15:11 APTT 39.4 Sec. (24.2-36.6) H 11/07/17 15:11 Sodium 138 mmol/L (137-145) 11/08/17 09:04 Potassium 3.8 mmol/L (3.6-5.0) 11/08/17 09:04 Chloride 96.3 mmol/L (98-107) L 11/08/17 09:04 Carbon Dioxide 23 mmol/L (22-30) 11/08/17 09:04 Anion Gap 23 mmol/L 11/08/17 09:04 BUN 40 mg/dL (7-17) H 11/08/17 09:04 Creatinine 4.8 mg/dL (0.7-1.2) H 11/08/17 09:04 Estimated GFR 11 ml/min 11/08/17 09:04 BUN/Creatinine Ratio 8 % 11/08/17 09:04 Glucose 228 mg/dL (65-100) H 11/08/17 09:04 POC Glucose 203 (70-105) H 11/07/17 19:25 Lactic Acid 1.00 mmol/L (0.7-2.0) 11/08/17 01:47 Calcium 9.6 mg/dL (8.4-10.2) 11/08/17 09:04 Total Bilirubin 0.30 mg/dL (0.1-1.2) 11/07/17 15:11 AST 6 units/L (5-40) 11/07/17 15:11 ALT < 5 units/L (7-56) L 11/07/17 15:11 Alkaline Phosphatase 155 units/L (35-129) H 11/07/17 15:11 Total Creatine Kinase 18 units/L (30-135) L 11/08/17 01:47 CK-MB (CK-2) 1.4 ng/mL (0.0-4.0) 11/08/17 01:47 CK-MB (CK-2) Rel Index 7.7 (0-4) H 11/08/17 01:47 Troponin T 2.760 ng/mL (0.00-0.029) H* D 11/08/17 01:47 NT-Pro-B Natriuret Pep > 85750 pg/mL (0-900) H 11/07/17 15:11 Total Protein 5.6 g/dL (6.3-8.2) L 11/07/17 15:11 Albumin 2.6 g/dL (3.9-5) L 11/07/17 15:11 Albumin/Globulin Ratio 0.9 % 11/07/17 15:11 Triglycerides 175 mg/dL (2-149) H 11/07/17 15:11 Cholesterol 114 mg/dL (50-199) 11/07/17 15:11 LDL Cholesterol Direct 40 mg/dL (50-130) L 11/07/17 15:11 HDL Cholesterol 33 mg/dL (40-59) L 11/07/17 15:11 Cholesterol/HDL Ratio 3.45 % 11/07/17 15:11 TSH 3.420 mlU/mL (0.270-4.200) 11/07/17 15:11 Free T4 1.19 ng/dL (0.76-1.46) 11/07/17 15:11 Blood Type B POSITIVE 11/08/17 01:47 Antibody Screen Negative 11/08/17 01:47 Crossmatch See Detail 11/08/17 01:47
[2017-11-08] MEDS ORDERED: BABY ASPIRIN PO SCH (10:00)
[2017-11-08] MEDS: ASPIRIN PO SCH (10:35)
--- NOTE | 2017-11-08 11:14 | Consultation ---
History of Present Illness Consult date: 11/08/17 Consult reason: elevated troponin History of present illness: This is a 57 year old woman with end stage renal disease on hemodialysis. She hasa history of hypertension, diabetes and peripheral vascular disease with right BKA. Patient was sent to the hospital with reports of altered mental status during dialysis. Head CT scan documents no acute intracranial process. A cardiac consultation was requested for elevation of troponin. Cardiac enzymes results a CK of 18 and a CK/MB of 1.4. Troponin 2.76. Laboratory values also shows a creatinine of 4.6 and severe anemia, HCT 22.4. There were no reports of chest pain, unusual shortness of breath or palpitations. There is no lower extremity edema. Patient denies a prior cardiac history. She denies recent cardiac workup. An ECG is a sinus rhythm with incomplete bundle branch block and LVH. Past History Past Surgical History: Other (LT FOOT SURGERY, RT BKA, RT DIALYSIS SHUNT PLACEMENT) Medications and Allergies Allergies Allergy/AdvReac Type Severity Reaction Status Date / Time No Known Allergies Allergy Verified 06/22/17 11:30 Home Medications Medication Instructions Recorded Confirmed Last Taken Type Insulin Glargine,Hum.rec.anlog 20 units SQ QHS 06/23/17 11/08/17 Unknown History [Lantus] cloNIDine [Catapres] 0.1 mg PO TID PRN 06/23/17 11/08/17 Unknown History ALBUTEROL NEB's [Proventil 0.083% 2.5 mg IH Q4HRT PRN nebu 06/25/17 11/08/17 Unknown Rx NEBS] Carvedilol [Coreg] 12.5 mg PO DAILY tablet 06/25/17 11/08/17 Unknown Rx HYDROcodone/APAP 7.5-325 [[place] 1 each PO Q6H PRN #30 tablet 06/25/17 11/08/17 Unknown Rx 7.5-325 mg TAB] NIFEdipine [Nifedipine ER] 60 mg PO BID #60 tab.er.24 06/25/17 11/08/17 Unknown Rx Zolpidem [Ambien] 10 mg PO QHS #15 tablet 06/25/17 11/08/17 Unknown Rx Fluconazole [Diflucan TAB] 100 mg PO QDAY #7 tablet 10/18/17 11/08/17 Unknown Rx Active Meds: Active Medications Acetaminophen (Tylenol) 650 mg PO Q4H PRN PRN Reason: Pain MILD(1-3)/Fever >100.5/ESTEBAN Acetaminophen/Hydrocodone Bitart ([place] 5/325) 1 each PO Q6H PRN PRN Reason: Pain, Moderate (4-6) Aspirin (Aspirin) 325 mg PO QDAY [facility] Dextrose (D50w (25gm) Syringe) 50 ml IV PRN PRN PRN Reason: Hypoglycemia Insulin Glargine (Lantus) 10 units SUB-Q QHS [place] Insulin Human Regular (Humulin R) 0 units SUB-Q ACHS [facility]; Protocol Last Admin: 11/08/17 08:20 Dose: Not Given Morphine Sulfate (Morphine) 2 mg IV Q6H PRN PRN Reason: Pain, Moderate (4-6) Last Admin: 11/08/17 04:13 Dose: 2 mg Ondansetron HCl (Zofran) 4 mg IV Q8H PRN PRN Reason: Nausea And Vomiting Sodium Chloride (Sodium Chloride Flush Syringe 10 Ml) 10 ml IV BID ASHLEY Sodium Chloride (Sodium Chloride Flush Syringe 10 Ml) 10 ml IV PRN PRN PRN Reason: LINE FLUSH Vancomycin HCl (Vancomycin Pharmacy To Dose) 1 each IV PKCONSULT [facility]; Protocol Physical Examination Vital Signs Temp Pulse Resp BP Pulse Ox 98.5 F 59 L 16 107/33 100 11/07/17 13:57 11/07/17 13:57 11/07/17 13:57 11/07/17 13:57 11/07/17 13:57 General appearance: no acute distress Cardiac: Positive: Bradycardia Results 11/08/17 10:53 11/08/17 09:04 Cardiac Enzymes 11/07/17 11/08/17 Range/Units 15:11 01:47 AST 6 (5-40) units/L CK-MB (CK-2) 1.4 (0.0-4.0) ng/mL Coagulation 11/07/17 Range/Units 15:11 PT 16.8 H (12.2-14.9) Sec. INR 1.29 H (0.87-1.13) APTT 39.4 H (24.2-36.6) Sec. Lipids 11/07/17 Range/Units 15:11 Triglycerides 175 H (2-149) mg/dL Cholesterol 114 (50-199) mg/dL HDL Cholesterol 33 L (40-59) mg/dL Cholesterol/HDL Ratio 3.45 % CBC 11/07/17 Range/Units 15:11 WBC 15.6 H (4.5-11.0) K/mm3 RBC 2.42 L (3.65-5.03) M/mm3 Hgb 6.9 L (10.1-14.3) gm/dl Hct 22.4 L (30.3-42.9) % Plt Count 210 (140-440) K/mm3 Lymph # 1.0 L (1.2-5.4) K/mm3 [place] # 0.9 H (0.0-0.8) K/mm3 Eos # 0.0 (0.0-0.4) K/mm3 Baso # 0.1 (0.0-0.1) K/mm3 Comprehensive Metabolic Panel 11/07/17 11/08/17 Range/Units 15:11 09:04 Sodium 136 L 138 (137-145) mmol/L Potassium 3.9 3.8 (3.6-5.0) mmol/L Chloride 93.7 L 96.3 L (98-107) mmol/L Carbon Dioxide 26 23 (22-30) mmol/L BUN 36 H 40 H (7-17) mg/dL Creatinine 4.6 H 4.8 H (0.7-1.2) mg/dL Glucose 213 H 228 H (65-100) mg/dL Calcium 9.3 9.6 (8.4-10.2) mg/dL AST 6 (5-40) units/L ALT < 5 L (7-56) units/L Alkaline Phosphatase 155 H (35-129) units/L Total Protein 5.6 L (6.3-8.2) g/dL Albumin 2.6 L (3.9-5) g/dL Assessment and Plan Altered mental status ESRD on HD Anemia s/p transfusion of PRBCs Hypertension DM PVD s/p right BKA Elevated troponin
[2017-11-08 12:05] LABS: Hematocrit 25.3 % (30.3-42.9)
[2017-11-08] MEDS: DAKIN'S FULL STRENGTH TP SCH (13:57)
[2017-11-08] MEDS: SODIUM CHLORIDE FLUSH SYRINGE 10 ML IV SCH ×2 (13:58→22:06)
--- NOTE | 2017-11-08 14:30 | Consultation ---
History of Present Illness Consult date: 11/08/17 - History of present illness History of present illness: 57 yo F with hx of HTN, ESRD on HD presents with c/o weakness from HD. The patient is a poor historian and only answers yes/no questions. All of the history is obtained from the chart. No reported history of fever, chest pain or shortness of breath. The patient underwent R BKA at [place], timeline is unavailable. Unsure if she is bedbound. Past History Past Medical History: anemia, diabetes, hypertension, PVD, other (ESRD ON HD, CVA, ) Past Surgical History: Other (LT FOOT SURGERY, RT BKA, RT DIALYSIS SHUNT PLACEMENT) Social history: other (she denies tobacco, alcohol or illicit drug use.) Family history: other (reviewed, and noncontributory) Medications and Allergies Allergies Allergy/AdvReac Type Severity Reaction Status Date / Time No Known Allergies Allergy Verified 06/22/17 11:30 Home Medications Medication Instructions Recorded Confirmed Last Taken Type Insulin Glargine,Hum.rec.anlog 20 units SQ QHS 06/23/17 11/08/17 Unknown History [Lantus] cloNIDine [Catapres] 0.1 mg PO TID PRN 06/23/17 11/08/17 Unknown History ALBUTEROL NEB's [Proventil 0.083% 2.5 mg IH Q4HRT PRN nebu 06/25/17 11/08/17 Unknown Rx NEBS] Carvedilol [Coreg] 12.5 mg PO DAILY tablet 06/25/17 11/08/17 Unknown Rx HYDROcodone/APAP 7.5-325 [[place] 1 each PO Q6H PRN #30 tablet 06/25/17 11/08/17 Unknown Rx 7.5-325 mg TAB] NIFEdipine [Nifedipine ER] 60 mg PO BID #60 tab.er.24 06/25/17 11/08/17 Unknown Rx Zolpidem [Ambien] 10 mg PO QHS #15 tablet 06/25/17 11/08/17 Unknown Rx Fluconazole [Diflucan TAB] 100 mg PO QDAY #7 tablet 10/18/17 11/08/17 Unknown Rx Active Meds: Active Medications Acetaminophen (Tylenol) 650 mg PO Q4H PRN PRN Reason: Pain MILD(1-3)/Fever >100.5/ESTEBAN Acetaminophen/Hydrocodone Bitart ([place] 5/325) 1 each PO Q6H PRN PRN Reason: Pain, Moderate (4-6) Aspirin (Aspirin) 325 mg PO QDAY [facility] Last Admin: 11/08/17 10:35 Dose: Not Given Dextrose (D50w (25gm) Syringe) 50 ml IV PRN PRN PRN Reason: Hypoglycemia Insulin Glargine (Lantus) 10 units SUB-Q QHS [facility] Insulin Human Regular (Humulin R) 0 units SUB-Q ACHS [facility]; Protocol Last Admin: 11/08/17 13:55 Dose: 3 units Morphine Sulfate (Morphine) 2 mg IV Q6H PRN PRN Reason: Pain, Moderate (4-6) Last Admin: 11/08/17 04:13 Dose: 2 mg Ondansetron HCl (Zofran) 4 mg IV Q8H PRN PRN Reason: Nausea And Vomiting Sodium Chloride (Sodium Chloride Flush Syringe 10 Ml) 10 ml IV BID [facility] Last Admin: 11/08/17 13:58 Dose: 10 ml Sodium Chloride (Sodium Chloride Flush Syringe 10 Ml) 10 ml IV PRN PRN PRN Reason: LINE FLUSH Sodium Hypochlorite ([place]'s Full Strength) 1 applic TP Q12H [facility] Last Admin: 11/08/17 13:57 Dose: Not Given Vancomycin HCl (Vancomycin Pharmacy To Dose) 1 each IV PKCONSULT [facility]; Protocol Review of Systems ROS unobtainable: due to mental status Exam Vital Signs Temp Pulse Resp BP Pulse Ox 98.5 F 59 L 16 107/33 100 11/07/17 13:57 11/07/17 13:57 11/07/17 13:57 11/07/17 13:57 11/07/17 13:57 Narrative exam: Gen: Awake, lethargic appearing. Answers yes/no questions CV: S1, S2+ resp: even and unlabored Ext: R BKA stump with slough at midportion of staple line. [place] intact. No drainage. Sacrum: unstageable sacral decubitus ulcer measuring [id number], wound base covered with slough and necrotic tissue. Results - Labs 11/08/17 10:53 11/08/17 09:04 Abnormal lab results 11/07/17 11/07/17 11/07/17 Range/Units 15:11 15:11 15:11 WBC 15.6 H (4.5-11.0) K/mm3 RBC 2.42 L (3.65-5.03) M/mm3 Hgb 6.9 L (10.1-14.3) gm/dl Hct 22.4 L (30.3-42.9) % RDW 17.5 H (13.2-15.2) % Lymph % (Auto) 6.2 L (13.4-35.0) % Lymph # 1.0 L (1.2-5.4) K/mm3 [place] # 0.9 H (0.0-0.8) K/mm3 Seg Neutrophils % 87.5 H (40.0-70.0) % Seg Neutrophils # 13.6 H (1.8-7.7) K/mm3 PT 16.8 H (12.2-14.9) Sec. INR 1.29 H (0.87-1.13) APTT 39.4 H (24.2-36.6) Sec. Sodium 136 L (137-145) mmol/L Chloride 93.7 L (98-107) mmol/L BUN 36 H (7-17) mg/dL Creatinine 4.6 H (0.7-1.2) mg/dL Glucose 213 H (65-100) mg/dL POC Glucose (70-105) ALT < 5 L (7-56) units/L Alkaline Phosphatase 155 H (35-129) units/L Total Creatine Kinase (30-135) units/L CK-MB (CK-2) Rel Index (0-4) Troponin T (0.00-0.029) ng/mL NT-Pro-B Natriuret Pep (0-900) pg/mL Total Protein 5.6 L (6.3-8.2) g/dL Albumin 2.6 L (3.9-5) g/dL Triglycerides (2-149) mg/dL LDL Cholesterol Direct (50-130) mg/dL HDL Cholesterol (40-59) mg/dL Crossmatch 11/07/17 11/07/17 11/07/17 Range/Units 15:11 15:11 19:25 WBC (4.5-11.0) K/mm3 RBC (3.65-5.03) M/mm3 Hgb (10.1-14.3) gm/dl Hct (30.3-42.9) % RDW (13.2-15.2) % Lymph % (Auto) (13.4-35.0) % Lymph # (1.2-5.4) K/mm3 [place] # (0.0-0.8) K/mm3 Seg Neutrophils % (40.0-70.0) % Seg Neutrophils # (1.8-7.7) K/mm3 PT (12.2-14.9) Sec. INR (0.87-1.13) APTT (24.2-36.6) Sec. Sodium (137-145) mmol/L Chloride (98-107) mmol/L BUN (7-17) mg/dL Creatinine (0.7-1.2) mg/dL Glucose (65-100) mg/dL POC Glucose 203 H (70-105) ALT (7-56) units/L Alkaline Phosphatase (35-129) units/L Total Creatine Kinase (30-135) units/L CK-MB (CK-2) Rel Index (0-4) Troponin T 2.290 H* (0.00-0.029) ng/mL NT-Pro-B Natriuret Pep > 90928 H (0-900) pg/mL Total Protein (6.3-8.2) g/dL Albumin (3.9-5) g/dL Triglycerides 175 H (2-149) mg/dL LDL Cholesterol Direct 40 L (50-130) mg/dL HDL Cholesterol 33 L (40-59) mg/dL Crossmatch 11/08/17 11/08/17 11/08/17 Range/Units 01:47 01:47 09:04 WBC (4.5-11.0) K/mm3 RBC (3.65-5.03) M/mm3 Hgb (10.1-14.3) gm/dl Hct (30.3-42.9) % RDW (13.2-15.2) % Lymph % (Auto) (13.4-35.0) % Lymph # (1.2-5.4) K/mm3 [place] # (0.0-0.8) K/mm3 Seg Neutrophils % (40.0-70.0) % Seg Neutrophils # (1.8-7.7) K/mm3 PT (12.2-14.9) Sec. INR (0.87-1.13) APTT (24.2-36.6) Sec. Sodium (137-145) mmol/L Chloride 96.3 L (98-107) mmol/L BUN 40 H (7-17) mg/dL Creatinine 4.8 H (0.7-1.2) mg/dL Glucose 228 H (65-100) mg/dL POC Glucose (70-105) ALT (7-56) units/L Alkaline Phosphatase (35-129) units/L Total Creatine Kinase 18 L (30-135) units/L CK-MB (CK-2) Rel Index 7.7 H (0-4) Troponin T 2.760 H* D 2.250 H* (0.00-0.029) ng/mL NT-Pro-B Natriuret Pep (0-900) pg/mL Total Protein (6.3-8.2) g/dL Albumin (3.9-5) g/dL Triglycerides (2-149) mg/dL LDL Cholesterol Direct (50-130) mg/dL HDL Cholesterol (40-59) mg/dL Crossmatch See Detail 11/08/17 Range/Units 10:53 WBC (4.5-11.0) K/mm3 RBC (3.65-5.03) M/mm3 Hgb 8.0 L (10.1-14.3) gm/dl Hct 25.3 L (30.3-42.9) % RDW (13.2-15.2) % Lymph % (Auto) (13.4-35.0) % Lymph # (1.2-5.4) K/mm3 [place] # (0.0-0.8) K/mm3 Seg Neutrophils % (40.0-70.0) % Seg Neutrophils # (1.8-7.7) K/mm3 PT (12.2-14.9) Sec. INR (0.87-1.13) APTT (24.2-36.6) Sec. Sodium (137-145) mmol/L Chloride (98-107) mmol/L BUN (7-17) mg/dL Creatinine (0.7-1.2) mg/dL Glucose (65-100) mg/dL POC Glucose (70-105) ALT (7-56) units/L Alkaline Phosphatase (35-129) units/L Total Creatine Kinase (30-135) units/L CK-MB (CK-2) Rel Index (0-4) Troponin T (0.00-0.029) ng/mL NT-Pro-B Natriuret Pep (0-900) pg/mL Total Protein (6.3-8.2) g/dL Albumin (3.9-5) g/dL Triglycerides (2-149) mg/dL LDL Cholesterol Direct (50-130) mg/dL HDL Cholesterol (40-59) mg/dL Crossmatch Diabetes panel 11/07/17 11/07/17 11/08/17 Range/Units 15:11 15:11 09:04 Sodium 136 L 138 (137-145) mmol/L Potassium 3.9 3.8 (3.6-5.0) mmol/L Chloride 93.7 L 96.3 L (98-107) mmol/L Carbon Dioxide 26 23 (22-30) mmol/L BUN 36 H 40 H (7-17) mg/dL Creatinine 4.6 H 4.8 H (0.7-1.2) mg/dL Glucose 213 H 228 H (65-100) mg/dL Calcium 9.3 9.6 (8.4-10.2) mg/dL AST 6 (5-40) units/L ALT < 5 L (7-56) units/L Alkaline Phosphatase 155 H (35-129) units/L Total Protein 5.6 L (6.3-8.2) g/dL Albumin 2.6 L (3.9-5) g/dL Triglycerides 175 H (2-149) mg/dL HDL Cholesterol 33 L (40-59) mg/dL Thyroid panel 11/07/17 Range/Units 15:11 TSH 3.420 (0.270-4.200) mlU/mL Calcium panel 11/07/17 11/08/17 Range/Units 15:11 09:04 Calcium 9.3 9.6 (8.4-10.2) mg/dL Albumin 2.6 L (3.9-5) g/dL Pituitary panel 11/07/17 11/07/17 11/08/17 Range/Units 15:11 15:11 09:04 Sodium 136 L 138 (137-145) mmol/L Potassium 3.9 3.8 (3.6-5.0) mmol/L Chloride 93.7 L 96.3 L (98-107) mmol/L Carbon Dioxide 26 23 (22-30) mmol/L BUN 36 H 40 H (7-17) mg/dL Creatinine 4.6 H 4.8 H (0.7-1.2) mg/dL Glucose 213 H 228 H (65-100) mg/dL Calcium 9.3 9.6 (8.4-10.2) mg/dL TSH 3.420 (0.270-4.200) mlU/mL Adrenal panel 11/07/17 11/08/17 Range/Units 15:11 09:04 Sodium 136 L 138 (137-145) mmol/L Potassium 3.9 3.8 (3.6-5.0) mmol/L Chloride 93.7 L 96.3 L (98-107) mmol/L Carbon Dioxide 26 23 (22-30) mmol/L BUN 36 H 40 H (7-17) mg/dL Creatinine 4.6 H 4.8 H (0.7-1.2) mg/dL Glucose 213 H 228 H (65-100) mg/dL Calcium 9.3 9.6 (8.4-10.2) mg/dL Total Bilirubin 0.30 (0.1-1.2) mg/dL AST 6 (5-40) units/L ALT < 5 L (7-56) units/L Alkaline Phosphatase 155 H (35-129) units/L Total Protein 5.6 L (6.3-8.2) g/dL Albumin 2.6 L (3.9-5) g/dL Assessment and Plan 57 yo F with 1. unstageable sacral decubitus ulcer 2. wound of right BKA stump 3. ESRD on HD 4. elevated troponin 5. malnutrition - almubin 2.6 Plan: 1. Patient will need debridement of wounds in the OR. Will check with OR for timing. Will need to contact NOK for consent. 2. c/w abx 3. c/w HD per nephro 4. patient will need cards clearance prior to OR 5. continue local wound care with [employer] manager following pt 6. optimize nutrition, add dietary supplements, nutrition consult 7. offload sacrum and R BKA stump 8. strict glucose control Thank you for this consultation, please call with questions or concerns.
--- NOTE | 2017-11-08 19:13 | Consultation ---
History of Present Illness - Reason for Consult Consult date: 11/08/17 end stage renal disease - History of Present Illness Mrs. Shah is a 57yo with ESRD on HD MWF who presented to outpatient dialysis clinic yesterday with lethargy and hypotension. Blood pressure failed to improve with fluid bolus, so she was sent to the ED for evaluation. She was afebrile at admission w/ SBP in 100s. Labs notable for WBC 15.6, Hgb 6.9 and Troponin 2.29. Past History Past Medical History: anemia, diabetes, hypertension, PVD, other (ESRD ON HD, CVA, ) Past Surgical History: Other (LT FOOT SURGERY, RT BKA, RT DIALYSIS SHUNT PLACEMENT) Social history: other (she denies tobacco, alcohol or illicit drug use.) Family history: other (reviewed, and noncontributory) Medications and Allergies Allergies Allergy/AdvReac Type Severity Reaction Status Date / Time No Known Allergies Allergy Verified 06/22/17 11:30 Home Medications Medication Instructions Recorded Confirmed Last Taken Type Insulin Glargine,Hum.rec.anlog 20 units SQ QHS 06/23/17 11/08/17 Unknown History [Lantus] cloNIDine [Catapres] 0.1 mg PO TID PRN 06/23/17 11/08/17 Unknown History ALBUTEROL NEB's [Proventil 0.083% 2.5 mg IH Q4HRT PRN nebu 06/25/17 11/08/17 Unknown Rx NEBS] Carvedilol [Coreg] 12.5 mg PO DAILY tablet 06/25/17 11/08/17 Unknown Rx HYDROcodone/APAP 7.5-325 [[place] 1 each PO Q6H PRN #30 tablet 06/25/17 11/08/17 Unknown Rx 7.5-325 mg TAB] NIFEdipine [Nifedipine ER] 60 mg PO BID #60 tab.er.24 06/25/17 11/08/17 Unknown Rx Zolpidem [Ambien] 10 mg PO QHS #15 tablet 06/25/17 11/08/17 Unknown Rx Fluconazole [Diflucan TAB] 100 mg PO QDAY #7 tablet 10/18/17 11/08/17 Unknown Rx Active Meds: Active Medications Acetaminophen (Tylenol) 650 mg PO Q4H PRN PRN Reason: Pain MILD(1-3)/Fever >100.5/ESTEBAN Acetaminophen/Hydrocodone Bitart (Addison 5/325) 1 each PO Q6H PRN PRN Reason: Pain, Moderate (4-6) Aspirin (Aspirin) 325 mg PO QDAY [facility] Last Admin: 11/08/17 10:35 Dose: Not Given Dextrose (D50w (25gm) Syringe) 50 ml IV PRN PRN PRN Reason: Hypoglycemia Insulin Glargine (Lantus) 10 units SUB-Q QHS [facility] Insulin Human Regular (Humulin R) 0 units SUB-Q ACHS [facility]; Protocol Last Admin: 11/08/17 17:41 Dose: 2 units Morphine Sulfate (Morphine) 2 mg IV Q6H PRN PRN Reason: Pain, Moderate (4-6) Last Admin: 11/08/17 04:13 Dose: 2 mg Ondansetron HCl (Zofran) 4 mg IV Q8H PRN PRN Reason: Nausea And Vomiting Sodium Chloride (Sodium Chloride Flush Syringe 10 Ml) 10 ml IV BID [facility] Last Admin: 11/08/17 13:58 Dose: 10 ml Sodium Chloride (Sodium Chloride Flush Syringe 10 Ml) 10 ml IV PRN PRN PRN Reason: LINE FLUSH Sodium Hypochlorite (Dakin's Full Strength) 1 applic TP Q12H [facility] Last Admin: 11/08/17 13:57 Dose: Not Given Vancomycin HCl (Vancomycin Pharmacy To Dose) 1 each IV PKCONSULT [facility]; Protocol Review of Systems All systems: negative Exam - Vital Signs Vital signs: Vital Signs Temp Pulse Resp BP Pulse Ox 98.5 F 59 L 16 107/33 100 11/07/17 13:57 11/07/17 13:57 11/07/17 13:57 11/07/17 13:57 11/07/17 13:57 - General Appearance General appearance: well-developed, well-nourished EENT: ATNC Respiratory: Decreased Breath Sounds Heart: regular, S1S2 Gastrointestinal: Present: normal. Absent: tenderness, distended Integumentary: no rash, warm and dry Neurologic: other (lethargic) Musculoskeletal: Present: other (BKA) Psychiatric: cooperative Results - Lab Results 11/08/17 10:53 11/08/17 09:04 Most recent lab results Calcium 9.6 mg/dL (8.4-10.2) 11/08/17 09:04 Assessment and Plan Impression: * End stage renal disease on hemodialysis * Relative hypotension w/ hx of hypertension * AMSs * Elevated troponin * Anemia secondary to ESRD * Peripheral artery disease s/p BKA Plan: * Continue HD MWF - UF as tolerated * Elevated troponin noted - cardiology following; patient would benefit from cardiac evaluation --[place] [facility] records reviewed, she is s/p MPI in Feb 2014 - nml perfusion w/ post stress EF 57% --Troponin in Aug 2017 - 0.37 * Empiric abx per primary team * Blood cx are pending * Epogen TIW prn * Transfuse pRBC prn * Renal diet
[2017-11-08] MEDS: LANTUS SUB-Q SCH (21:51)
[2017-11-09] MEDS: HumuLIN R SUB-Q SCH ×4 (07:30→21:45)
[2017-11-09] MEDS: NORCO 5/325 PO PRN ×2 (08:57→13:30)
[2017-11-09] MEDS: ASPIRIN PO SCH (09:31)
[2017-11-09] MEDS: SODIUM CHLORIDE FLUSH SYRINGE 10 ML IV SCH ×3 (09:32→23:43)
--- NOTE | 2017-11-09 09:40 | Progress Note ---
Assessment and Plan Assessment and plan: Patient is 57 yo woman from [place] with a h/o hypertension, IDDM, CVA, ESRD on HD, PAD s/p right BKA, * pCXR reported blunting of the right costophrenic angle suggesting small pleural effusion or chronic pleural reaction, Cardiomegaly * CTH wo contrast reported small vessell ischemic changes, no acute intracranial process noted, no change, stable chronic sinusitis -SIRS with early sepsis from infected pressure ulcer, leg ulcers: iv abx, wound care consult, OR once Cardiology clears -Stomp infection with kasandra still in place: wound care consulted -Elevated troponins: Consulted Cardiology -ESRD on HD: consult Nephrology -Acute on chronic anemia of chronic disease: blood transfusion with HD -IDDM with hyperglycemia: add ssi, ada -Severe protein calorie malnutriton, poa: consult Sports Specialist -Functional quadriplegia, poa, suspected: consult PT Labs pending Needs Cardiology clearance prior to Surgery, Stress test tomorrow d/w Cardiology History Interval history: Patient was seen and examined. Follow-up on current diagnosis AMS. Overnight uneventful. Patient denies any chest pain, shortness breath, nausea/vomiting or severe headaches. Imaging, nursing note, chart, labs and old chart reviewed. Discussed with patient. Hospitalist Physical - Physical exam Narrative exam: GEN: chronically debilated, ill appearing NAD, Awake, Alert, Orientated x3 with hints HEENT: NCAT, EOMI, PERRL, OP Clear NECK: supple, no adenopathy, no thyromegaly, no JVD CVS/HEART: RRR, normal S1S2, pulses present bilaterally CHEST/LUNGS: CTA B, Symmetrical chest expansion, good air entry bilaterally GI/Abdomen: soft, NTND, good bowel sounds, no guarding or rebound /Bladder: no suprapubic tenderness, no CVA or paraspinal tenderness EXT/Skin: necrotic left foot, unstageable deep sacral ulcer MSK: right aka, Neuro: CN 2-12 grossly intact, no new focal deficits Psych: calm - Constitutional Vitals: Temp Pulse Resp BP Pulse Ox 97.1 F L 56 L 16 115/38 99 11/09/17 03:26 11/09/17 03:26 11/09/17 03:26 11/09/17 03:26 11/09/17 03:26 General appearance: Present: no acute distress, other (Alert and oriented 3) Results - Labs CBC & Chem 7: 11/09/17 09:44 11/09/17 09:44 Labs: Laboratory Last Values WBC 15.6 K/mm3 (4.5-11.0) H 11/07/17 15:11 RBC 2.42 M/mm3 (3.65-5.03) L 11/07/17 15:11 Hgb 8.0 gm/dl (10.1-14.3) L 11/08/17 10:53 Hct 25.3 % (30.3-42.9) L 11/08/17 10:53 MCV 93 fl (79-97) 11/07/17 15:11 MCH 28 pg (28-32) 11/07/17 15:11 MCHC 31 % (30-34) 11/07/17 15:11 RDW 17.5 % (13.2-15.2) H 11/07/17 15:11 Plt Count 210 K/mm3 (140-440) 11/07/17 15:11 Lymph % (Auto) 6.2 % (13.4-35.0) L 11/07/17 15:11 [place] % (Auto) 5.5 % (0.0-7.3) 11/07/17 15:11 Eos % (Auto) 0.3 % (0.0-4.3) 11/07/17 15:11 Baso % (Auto) 0.5 % (0.0-1.8) 11/07/17 15:11 Lymph # 1.0 K/mm3 (1.2-5.4) L 11/07/17 15:11 [place] # 0.9 K/mm3 (0.0-0.8) H 11/07/17 15:11 Eos # 0.0 K/mm3 (0.0-0.4) 11/07/17 15:11 Baso # 0.1 K/mm3 (0.0-0.1) 11/07/17 15:11 Seg Neutrophils % 87.5 % (40.0-70.0) H 11/07/17 15:11 Seg Neutrophils # 13.6 K/mm3 (1.8-7.7) H 11/07/17 15:11 PT 16.8 Sec. (12.2-14.9) H 11/07/17 15:11 INR 1.29 (0.87-1.13) H 11/07/17 15:11 APTT 39.4 Sec. (24.2-36.6) H 11/07/17 15:11 Sodium 138 mmol/L (137-145) 11/08/17 09:04 Potassium 3.8 mmol/L (3.6-5.0) 11/08/17 09:04 Chloride 96.3 mmol/L (98-107) L 11/08/17 09:04 Carbon Dioxide 23 mmol/L (22-30) 11/08/17 09:04 Anion Gap 23 mmol/L 11/08/17 09:04 BUN 40 mg/dL (7-17) H 11/08/17 09:04 Creatinine 4.8 mg/dL (0.7-1.2) H 11/08/17 09:04 Estimated GFR 11 ml/min 11/08/17 09:04 BUN/Creatinine Ratio 8 % 11/08/17 09:04 Glucose 228 mg/dL (65-100) H 11/08/17 09:04 POC Glucose 183 (70-105) H 11/09/17 06:35 Lactic Acid 1.00 mmol/L (0.7-2.0) 11/08/17 01:47 Calcium 9.6 mg/dL (8.4-10.2) 11/08/17 09:04 Total Bilirubin 0.30 mg/dL (0.1-1.2) 11/07/17 15:11 AST 6 units/L (5-40) 11/07/17 15:11 ALT < 5 units/L (7-56) L 11/07/17 15:11 Alkaline Phosphatase 155 units/L (35-129) H 11/07/17 15:11 Total Creatine Kinase 18 units/L (30-135) L 11/08/17 01:47 CK-MB (CK-2) 1.4 ng/mL (0.0-4.0) 11/08/17 01:47 CK-MB (CK-2) Rel Index 7.7 (0-4) H 11/08/17 01:47 Troponin T 2.250 ng/mL (0.00-0.029) H* 11/08/17 09:04 NT-Pro-B Natriuret Pep > 59665 pg/mL (0-900) H 11/07/17 15:11 Total Protein 5.6 g/dL (6.3-8.2) L 11/07/17 15:11 Albumin 2.6 g/dL (3.9-5) L 11/07/17 15:11 Albumin/Globulin Ratio 0.9 % 11/07/17 15:11 Triglycerides 175 mg/dL (2-149) H 11/07/17 15:11 Cholesterol 114 mg/dL (50-199) 11/07/17 15:11 LDL Cholesterol Direct 40 mg/dL (50-130) L 11/07/17 15:11 HDL Cholesterol 33 mg/dL (40-59) L 11/07/17 15:11 Cholesterol/HDL Ratio 3.45 % 11/07/17 15:11 TSH 3.420 mlU/mL (0.270-4.200) 11/07/17 15:11 Free T4 1.19 ng/dL (0.76-1.46) 11/07/17 15:11 Blood Type B POSITIVE 11/08/17 01:47 Antibody Screen Negative 11/08/17 01:47 Crossmatch See Detail 11/08/17 01:47
[2017-11-09] MEDS: MORPHINE IV PRN ×2 (10:43→23:43)
--- NOTE | 2017-11-09 10:56 | Progress Note ---
Assessment and Plan Altered mental status ESRD on HD Anemia s/p transfusion of PRBCs Hypertension DM PVD s/p right BKA lower extremity wounds Elevated troponin Echocardiogram reports a mild to moderate mitral regurgitation a moderate tricuspid regurgitation. There is also evidence of moderate pulmonary hypertension, RVSP at 60mmHg. Ejection fraction 45-50%. Recommend: Further cardiac ischemic assessment with a Persantine thallium stress test tomorrow morning. Subjective Date of service: 11/09/17 Interval history: Patient denies chest pain and shortness of breath. No distress noted. Objective Vital Signs Temp Pulse Pulse Pulse Resp BP Pulse Ox 11/09/17 07:25 59 L 100 11/09/17 07:24 99.2 F 59 L 16 140/46 100 11/09/17 03:26 97.1 F L 56 L 16 115/38 99 11/09/17 01:00 56 L 11/08/17 23:44 98.6 F 54 L 16 141/50 100 11/08/17 22:00 55 L 55 L 18 100 11/08/17 19:49 97.9 F 55 L 16 127/42 98 11/08/17 17:10 68 11/08/17 16:57 97.9 F 54 L 18 120/45 95 11/08/17 13:23 98.4 F 52 L 18 143/52 100 - Physical Examination General: No Apparent Distress HEENT: Positive: PERRL Cardiac: Positive: Reg Rate and Rhythm - Labs and Meds CBC 11/08/17 Range/Units 10:53 Hgb 8.0 L (10.1-14.3) gm/dl Hct 25.3 L (30.3-42.9) %
[2017-11-09 11:01] LABS: Basophils % (Auto) 0.4 % (0.0-1.8); Eosinophils # (Auto) 0.2 K/mm3 (0.0-0.4); Eosinophils % (Auto) 1.5 % (0.0-4.3); Hematocrit 29.3 % (30.3-42.9); Hemoglobin 9.1 gm/dl (10.1-14.3); Lymphocytes % (Auto) 8.5 % (13.4-35.0); Mean Corpuscular HGB Conc 31 % (30-34); Mean Corpuscular Hemoglobin 28 pg (28-32); Mean Corpuscular Volume 90 fl (79-97); Monocytes # (Auto) 0.8 K/mm3 (0.0-0.8); Monocytes % (Auto) 6.4 % (0.0-7.3); Platelet Count 208 K/mm3 (140-440); Red Blood Count 3.26 M/mm3 (3.65-5.03); Red Cell Distribution Width 19.3 % (13.2-15.2)
[2017-11-09 11:14] LABS: Calcium 9.6 mg/dL (8.4-10.2)
[2017-11-09] MEDS ORDERED: NACL 0.9% 100 ML IV PRN (11:48)
[2017-11-09] MEDS ORDERED: HEPARIN IV PRN (11:48)
--- NOTE | 2017-11-09 11:49 | Progress Note ---
Assessment and Plan Impression: * End stage renal disease on hemodialysis * Relative hypotension w/ hx of hypertension * AMS * Elevated troponin * Anemia secondary to ESRD * Peripheral artery disease s/p BKA Plan: * Continue HD MWF - UF as tolerated * Elevated troponin noted - cardiology following; note plans for stress test in AM * Empiric abx per primary team * Blood cx are pending * Epogen TIW prn * Transfuse pRBC prn * Renal diet Subjective Date of service: 11/09/17 Interval history: Patient has no complaint. More alert today. Objective - Vital Signs Vital signs: Vital Signs - 12hr 11/09/17 11/09/17 11/09/17 01:00 03:26 07:24 Temperature 97.1 F L 99.2 F Pulse Rate 56 L 56 L 59 L Respiratory 16 16 Rate Blood Pressure 115/38 140/46 O2 Sat by Pulse 99 100 Oximetry 11/09/17 07:25 Temperature Pulse Rate 59 L Respiratory Rate Blood Pressure O2 Sat by Pulse 100 Oximetry - General Appearance General appearance: well-developed, well-nourished EENT: ATNC Respiratory: Present: Clear to Ascultation Cardiology: regular, S1S2 Gastrointestinal: normal, no absent bowel sounds, no tenderness Neurologic: no focal deficit Musculoskeletal: other (right BKA) Psychiatric: cooperative - Lab 11/09/17 09:44 11/09/17 09:44 Most recent lab results Calcium 9.6 mg/dL (8.4-10.2) 11/09/17 09:44
[2017-11-09] MEDS: DAKIN'S FULL STRENGTH TP SCH ×2 (17:20)
[2017-11-09] MEDS ORDERED: PROCRIT ONE (19:35)
[2017-11-09] MEDS: PROCRIT IV PRN (19:39)
[2017-11-09] MEDS ORDERED: NACL 0.9 (PRIMING MACHINE ONLY DIALYSIS) MC ONE (20:31)
[2017-11-09] MEDS: LANTUS SUB-Q SCH (21:44)
[2017-11-09] MEDS: MAXIPIME 2 GM in NACL 0.9% 20 ML IV SCH (21:45)
[2017-11-10] MEDS: DAKIN'S FULL STRENGTH TP SCH ×2 (00:25→14:00)
[2017-11-10] MEDS: HumuLIN R SUB-Q SCH ×4 (08:13→23:02)
[2017-11-10] MEDS ORDERED: LEXISCAN IV ONE (10:25)
--- NOTE | 2017-11-10 10:40 | Progress Note ---
Assessment and Plan Impression: * End stage renal disease on hemodialysis * Relative hypotension w/ hx of hypertension * AMS * Elevated troponin * Anemia secondary to ESRD * Peripheral artery disease s/p BKA * Wound infection - GNR Plan: * Continue HD MWF - UF as tolerated * Elevated troponin noted - cardiology following; note plans for stress test today * Abx per primary team * Blood cx are NGTD * Epogen TIW prn * Transfuse pRBC prn * Renal diet Subjective Date of service: 11/10/17 Interval history: Patient off the floor at time of visit. Objective - Exam Narrative Exam: Exam deferred. - Vital Signs Vital signs: Vital Signs - 12hr 11/10/17 11/10/17 11/10/17 00:10 00:15 00:55 Temperature 99 F Pulse Rate 76 75 Pulse Rate [ From Monitor] Respiratory 20 18 Rate Blood Pressure 147/69 Blood Pressure 147/69 [Right] O2 Sat by Pulse 95 96 Oximetry 11/10/17 11/10/17 11/10/17 04:21 05:13 08:32 Temperature 98.4 F 98.4 F Pulse Rate 77 77 67 Pulse Rate [ From Monitor] Respiratory 20 20 Rate Blood Pressure 156/43 Blood Pressure 156/43 152/51 [Right] O2 Sat by Pulse 98 99 99 Oximetry 11/10/17 08:56 Temperature Pulse Rate Pulse Rate [ 67 From Monitor] Respiratory 20 Rate Blood Pressure Blood Pressure [Right] O2 Sat by Pulse Oximetry - Lab 11/09/17 09:44 11/09/17 09:44 Most recent lab results Calcium 9.6 mg/dL (8.4-10.2) 11/09/17 09:44
[2017-11-10] MEDS: NORCO 5/325 PO PRN (14:37)
[2017-11-10] MEDS: ASPIRIN PO SCH (14:37)
[2017-11-10] MEDS: MAXIPIME 2 GM in NACL 0.9% 20 ML IV SCH (14:38)
[2017-11-10] MEDS: SODIUM CHLORIDE FLUSH SYRINGE 10 ML IV SCH ×2 (14:39→23:01)
--- NOTE | 2017-11-10 15:20 | Event Note ---
Date: 11/10/17 Persantine thallium stress test performed successfully, results pending. Patient otherwise has no new cardiac complaints, appears frail and chronically ill but in no acute distress.
--- NOTE | 2017-11-10 17:27 | Progress Note ---
Assessment and Plan Assessment and plan: Patient is 57 yo woman from [place] with a h/o hypertension, IDDM, CVA, ESRD on HD, PAD s/p right BKA, * pCXR reported blunting of the right costophrenic angle suggesting small pleural effusion or chronic pleural reaction, Cardiomegaly * CTH wo contrast reported small vessell ischemic changes, no acute intracranial process noted, no change, stable chronic sinusitis -SIRS with early sepsis from infected pressure ulcer, leg ulcers: iv abx, wound care consult, OR once Cardiology clears -Stomp infection with kasandra still in place: wound care consulted -Elevated troponins: Consulted Cardiology -ESRD on HD: consult Nephrology -Acute on chronic anemia of chronic disease: blood transfusion with HD -IDDM with hyperglycemia: add ssi, ada -Severe protein calorie malnutriton, poa: consult Table Setter -Functional quadriplegia, poa, suspected: consult PT Stress test negative, OR tomorrow History Interval history: Patient was seen and examined. Follow-up on current diagnosis AMS. Overnight uneventful. Patient denies any chest pain, shortness breath, nausea/vomiting or severe headaches. Imaging, nursing note, chart, labs and old chart reviewed. Discussed with patient. Hospitalist Physical - Physical exam Narrative exam: GEN: chronically debilated, ill appearing NAD, Awake, Alert, Orientated x3 with hints HEENT: NCAT, EOMI, PERRL, OP Clear NECK: supple, no adenopathy, no thyromegaly, no JVD CVS/HEART: RRR, normal S1S2, pulses present bilaterally CHEST/LUNGS: CTA B, Symmetrical chest expansion, good air entry bilaterally GI/Abdomen: soft, NTND, good bowel sounds, no guarding or rebound /Bladder: no suprapubic tenderness, no CVA or paraspinal tenderness EXT/Skin: necrotic left foot, unstageable deep sacral ulcer MSK: right aka, Neuro: CN 2-12 grossly intact, no new focal deficits Psych: calm - Constitutional Vitals: Temp Pulse Resp BP Pulse Ox 98.4 F 64 20 126/64 99 11/10/17 08:32 11/10/17 11:49 11/10/17 08:56 11/10/17 11:49 11/10/17 08:32 General appearance: Present: no acute distress, other (Alert and oriented 3) Results - Labs CBC & Chem 7: 11/09/17 09:44 11/09/17 09:44 Labs: Laboratory Last Values WBC 11.8 K/mm3 (4.5-11.0) H 11/09/17 09:44 RBC 3.26 M/mm3 (3.65-5.03) L 11/09/17 09:44 Hgb 9.1 gm/dl (10.1-14.3) L 11/09/17 09:44 Hct 29.3 % (30.3-42.9) L 11/09/17 09:44 MCV 90 fl (79-97) 11/09/17 09:44 MCH 28 pg (28-32) 11/09/17 09:44 MCHC 31 % (30-34) 11/09/17 09:44 RDW 19.3 % (13.2-15.2) H 11/09/17 09:44 Plt Count 208 K/mm3 (140-440) 11/09/17 09:44 Lymph % (Auto) 8.5 % (13.4-35.0) L 11/09/17 09:44 [place] % (Auto) 6.4 % (0.0-7.3) 11/09/17 09:44 Eos % (Auto) 1.5 % (0.0-4.3) 11/09/17 09:44 Baso % (Auto) 0.4 % (0.0-1.8) 11/09/17 09:44 Lymph # 1.0 K/mm3 (1.2-5.4) L 11/09/17 09:44 [place] # 0.8 K/mm3 (0.0-0.8) 11/09/17 09:44 Eos # 0.2 K/mm3 (0.0-0.4) 11/09/17 09:44 Baso # 0.0 K/mm3 (0.0-0.1) 11/09/17 09:44 Seg Neutrophils % 83.2 % (40.0-70.0) H 11/09/17 09:44 Seg Neutrophils # 9.8 K/mm3 (1.8-7.7) H 11/09/17 09:44 PT 16.8 Sec. (12.2-14.9) H 11/07/17 15:11 INR 1.29 (0.87-1.13) H 11/07/17 15:11 APTT 39.4 Sec. (24.2-36.6) H 11/07/17 15:11 Sodium 136 mmol/L (137-145) L 11/09/17 09:44 Potassium 4.1 mmol/L (3.6-5.0) 11/09/17 09:44 Chloride 95.1 mmol/L (98-107) L 11/09/17 09:44 Carbon Dioxide 22 mmol/L (22-30) 11/09/17 09:44 Anion Gap 23 mmol/L 11/09/17 09:44 BUN 47 mg/dL (7-17) H 11/09/17 09:44 Creatinine 5.7 mg/dL (0.7-1.2) H 11/09/17 09:44 Estimated GFR 9 ml/min 11/09/17 09:44 BUN/Creatinine Ratio 8 % 11/09/17 09:44 Glucose 209 mg/dL (65-100) H 11/09/17 09:44 POC Glucose 249 (70-105) H 11/10/17 15:49 Lactic Acid 1.00 mmol/L (0.7-2.0) 11/08/17 01:47 Calcium 9.6 mg/dL (8.4-10.2) 11/09/17 09:44 Total Bilirubin 0.30 mg/dL (0.1-1.2) 11/07/17 15:11 AST 6 units/L (5-40) 11/07/17 15:11 ALT < 5 units/L (7-56) L 11/07/17 15:11 Alkaline Phosphatase 155 units/L (35-129) H 11/07/17 15:11 Total Creatine Kinase 18 units/L (30-135) L 11/08/17 01:47 CK-MB (CK-2) 1.4 ng/mL (0.0-4.0) 11/08/17 01:47 CK-MB (CK-2) Rel Index 7.7 (0-4) H 11/08/17 01:47 Troponin T 2.250 ng/mL (0.00-0.029) H* 11/08/17 09:04 NT-Pro-B Natriuret Pep > 14559 pg/mL (0-900) H 11/07/17 15:11 Total Protein 5.6 g/dL (6.3-8.2) L 11/07/17 15:11 Albumin 2.6 g/dL (3.9-5) L 11/07/17 15:11 Albumin/Globulin Ratio 0.9 % 11/07/17 15:11 Triglycerides 175 mg/dL (2-149) H 11/07/17 15:11 Cholesterol 114 mg/dL (50-199) 11/07/17 15:11 LDL Cholesterol Direct 40 mg/dL (50-130) L 11/07/17 15:11 HDL Cholesterol 33 mg/dL (40-59) L 11/07/17 15:11 Cholesterol/HDL Ratio 3.45 % 11/07/17 15:11 TSH 3.420 mlU/mL (0.270-4.200) 11/07/17 15:11 Free T4 1.19 ng/dL (0.76-1.46) 11/07/17 15:11 Random Vancomycin 14.3 ug/mL (0-40.0) 11/10/17 13:37 Blood Type B POSITIVE 11/08/17 01:47 Antibody Screen Negative 11/08/17 01:47 Crossmatch See Detail 11/08/17 01:47
[2017-11-10] MEDS ORDERED: DILAUDID IV PRN (17:28)
--- NOTE | 2017-11-10 19:32 | Treadmill Report ---
THALLIUM STRESS TEST LEFT VENTRICLE: Left ventricular chamber size is within normal spread. Perfusion study demonstrates a small fixed inferoapical defect with no reversibility on the resting study. Gated analysis suggests very mild left ventricular systolic dysfunction with ejection fraction of 47%. CONCLUSION: Small fixed inferoapical defect may be secondary to breast attenuation artifact. There is no reversible ischemia on this study. Recommend clinical correlation and echocardiographic reassessment of left ventricular systolic function. JOB# [id number] CA/NTS
[2017-11-10] MEDS: LANTUS SUB-Q SCH (23:00)
[2017-11-11] MEDS: NORCO 5/325 PO PRN ×2 (00:22→23:24)
[2017-11-11] MEDS: DAKIN'S FULL STRENGTH TP SCH ×3 (00:23→23:32)
[2017-11-11 07:23] LABS: Hematocrit 26.8 % (30.3-42.9); Hemoglobin 8.3 gm/dl (10.1-14.3); Mean Corpuscular HGB Conc 31 % (30-34); Mean Corpuscular Hemoglobin 28 pg (28-32); Mean Corpuscular Volume 89 fl (79-97); Platelet Count 200 K/mm3 (140-440); Red Blood Count 3.02 M/mm3 (3.65-5.03); Red Cell Distribution Width 18.6 % (13.2-15.2)
[2017-11-11] MEDS: HumuLIN R SUB-Q SCH ×4 (07:30→23:24)
[2017-11-11 08:51] LABS: Calcium 9.3 mg/dL (8.4-10.2)
--- NOTE | 2017-11-11 12:35 | Progress Note ---
Assessment and Plan Impression: * End stage renal disease on hemodialysis * Relative hypotension w/ hx of hypertension * AMS * Elevated troponin * Anemia secondary to ESRD * Peripheral artery disease s/p BKA * Wound infection - GNR Plan: * Continue HD MWF - UF as tolerated * cardiology notes reviewed; * Abx per primary team * Blood cx are NGTD * Epogen TIW prn * Transfuse pRBC prn * Renal diet Subjective Date of service: 11/11/17 Principal diagnosis: esrd Interval history: resting well in bed today Objective - Vital Signs Vital signs: Vital Signs - 12hr 11/11/17 11/11/17 11/11/17 01:22 04:41 08:25 Temperature 98.7 F 98.2 F Pulse Rate 70 73 Respiratory 22 18 16 Rate Respiratory Rate [unable to assess] Blood Pressure 198/64 Blood Pressure 173/61 [Right] O2 Sat by Pulse 100 93 Oximetry 11/11/17 11/11/17 11/11/17 10:00 10:35 10:40 Temperature 98.2 F Pulse Rate 60 71 69 Respiratory 16 Rate Respiratory 18 Rate [unable to assess] Blood Pressure 162/69 175/74 Blood Pressure [Right] O2 Sat by Pulse Oximetry 11/11/17 11/11/17 11/11/17 10:45 11:00 11:15 Temperature Pulse Rate 67 69 69 Respiratory Rate Respiratory Rate [unable to assess] Blood Pressure 154/72 139/69 127/65 Blood Pressure [Right] O2 Sat by Pulse Oximetry 11/11/17 11/11/17 11/11/17 11:30 11:45 12:00 Temperature Pulse Rate 70 71 71 Respiratory Rate Respiratory Rate [unable to assess] Blood Pressure 132/58 162/69 162/69 Blood Pressure [Right] O2 Sat by Pulse Oximetry - Lab 11/11/17 06:17 11/11/17 06:17 Most recent lab results Calcium 9.3 mg/dL (8.4-10.2) 11/11/17 06:17
--- NOTE | 2017-11-11 12:44 | Progress Note ---
Assessment and Plan 57 yo F with 1. unstageable sacral decubitus ulcer 2. wound of right BKA stump 3. ESRD on HD 4. elevated troponin 5. malnutrition - almubin 2.6 Plan: 1. Stress test negative - Patient scheduled for debridement today, all risks, benefits, alternatives to surgery were discussed with the patient and consent signed. 2. c/w abx, cultures - Proteus mirabilis 3. c/w HD per nephro 4. continue local wound care with migue, cryptography teacher following pt 5. Patient may benefit from wound VAC, wound care nurse will reassess on Tuesday after debridement 6. optimize nutrition, add dietary supplements, nutrition consult 7. offload sacrum and R BKA stump 8. strict glucose control Thank you for this consultation, please call with questions or concerns. Subjective Date of service: 11/11/17 Narrative: Patient seen and examined, she has no complaints. No overnight events. No fevers, chills. She is scheduled for dialysis today Objective Vital Signs - 12hr 11/11/17 11/11/17 11/11/17 01:22 04:41 08:25 Temperature 98.7 F 98.2 F Pulse Rate 70 73 Respiratory 22 18 16 Rate Respiratory Rate [unable to assess] Blood Pressure 198/64 Blood Pressure 173/61 [Right] O2 Sat by Pulse 100 93 Oximetry 11/11/17 11/11/17 11/11/17 10:00 10:35 10:40 Temperature 98.2 F Pulse Rate 60 71 69 Respiratory 16 Rate Respiratory 18 Rate [unable to assess] Blood Pressure 162/69 175/74 Blood Pressure [Right] O2 Sat by Pulse Oximetry 11/11/17 11/11/17 11/11/17 10:45 11:00 11:15 Temperature Pulse Rate 67 69 69 Respiratory Rate Respiratory Rate [unable to assess] Blood Pressure 154/72 139/69 127/65 Blood Pressure [Right] O2 Sat by Pulse Oximetry 11/11/17 11/11/17 11/11/17 11:30 11:45 12:00 Temperature Pulse Rate 70 71 71 Respiratory Rate Respiratory Rate [unable to assess] Blood Pressure 132/58 162/69 162/69 Blood Pressure [Right] O2 Sat by Pulse Oximetry - General physical appearance Narrative Exam: Gen.: Awake, alert, oriented. No apparent distress CV: S1, S2 present Respiratory: Normal wheezes Extremities: Right BKA stump with dressing intact - Labs 11/11/17 06:17 11/11/17 06:17 Diabetes panel 11/11/17 Range/Units 06:17 Sodium 134 L (137-145) mmol/L Potassium 3.3 L (3.6-5.0) mmol/L Chloride 93.9 L (98-107) mmol/L Carbon Dioxide 27 (22-30) mmol/L BUN 31 H (7-17) mg/dL Creatinine 3.7 H (0.7-1.2) mg/dL Glucose 117 H (65-100) mg/dL Calcium 9.3 (8.4-10.2) mg/dL Calcium panel 11/11/17 Range/Units 06:17 Calcium 9.3 (8.4-10.2) mg/dL Pituitary panel 11/11/17 Range/Units 06:17 Sodium 134 L (137-145) mmol/L Potassium 3.3 L (3.6-5.0) mmol/L Chloride 93.9 L (98-107) mmol/L Carbon Dioxide 27 (22-30) mmol/L BUN 31 H (7-17) mg/dL Creatinine 3.7 H (0.7-1.2) mg/dL Glucose 117 H (65-100) mg/dL Calcium 9.3 (8.4-10.2) mg/dL Adrenal panel 11/11/17 Range/Units 06:17 Sodium 134 L (137-145) mmol/L Potassium 3.3 L (3.6-5.0) mmol/L Chloride 93.9 L (98-107) mmol/L Carbon Dioxide 27 (22-30) mmol/L BUN 31 H (7-17) mg/dL Creatinine 3.7 H (0.7-1.2) mg/dL Glucose 117 H (65-100) mg/dL Calcium 9.3 (8.4-10.2) mg/dL
--- NOTE | 2017-11-11 15:18 | Anesthesia Day of Surgery ---
Anesthesia Day of Surgery - Day of Surgery Patient Examined: Yes Patient H&P Reviewed: Yes Patient is NPO: Yes
--- NOTE | 2017-11-11 15:18 | Anesthesia Consultation ---
Anesthesia Consult and Med Hx Date of service: 11/11/17 - Airway Anesthetic Teeth Evaluation: Poor (missing most teeth), Chipped - Pulmonary Exam CTA: Yes - Cardiac Exam Cardiac Exam: No Murmur - Pre-Operative Health Status ASA Pre-Surgery Classification: ASA4 Proposed Anesthetic Plan: General - Pre-Anesthesia Comment Pre-Anesthesia Comments: Patient was ambulatory and tolerated >4 METS 2 months prior. Has been in rehabilitation s/p right BKA. ESRD: last HD today. HTN. DM - Pulmonary Hx Asthma: No COPD: No Hx Pneumonia: No - Cardiovascular System Hx Hypertension: Yes - Endocrine Hx Renal Disease: Yes Hx End Stage Renal Disease: Yes
[2017-11-11] MEDS: NACL 0.9% 1000 ML 1,000 ML IV SCH (15:27)
[2017-11-11] MEDS ORDERED: DIPRIVAN 10 MG/ML IV ONE (15:32)
[2017-11-11] MEDS ORDERED: SUBLIMAZE ONE (15:32)
[2017-11-11] MEDS: SODIUM CHLORIDE FLUSH SYRINGE 10 ML IV SCH ×2 (15:45→23:25)
[2017-11-11] MEDS: ASPIRIN PO SCH (15:45)
[2017-11-11] MEDS ORDERED: NACL 0.9% 1000 ML 1,000 ML IV SCH (16:00)
[2017-11-11] MEDS ORDERED: ePHEDrine 50 MG/5 ML-0.9% NACL IV ONE (16:11)
[2017-11-11] MEDS ORDERED: NEO SYNEPHRINE/NS Syringe(OR USE) IV ONE ×2 (16:35→17:09)
--- NOTE | 2017-11-11 17:07 | Progress Note ---
Assessment and Plan Assessment and plan: Patient is 57 yo woman from [place] with a h/o hypertension, IDDM, CVA, ESRD on HD, PAD s/p right BKA, * pCXR reported blunting of the right costophrenic angle suggesting small pleural effusion or chronic pleural reaction, Cardiomegaly * CTH wo contrast reported small vessell ischemic changes, no acute intracranial process noted, no change, stable chronic sinusitis -SIRS with early sepsis from infected pressure ulcer, leg ulcers: iv abx, wound care consult, OR once Cardiology clears -Stomp infection with kasandra still in place: wound care consulted -Elevated troponins: Consulted Cardiology -ESRD on HD: consult Nephrology -Acute on chronic anemia of chronic disease: blood transfusion with HD -IDDM with hyperglycemia: add ssi, ada -Severe protein calorie malnutriton, poa: consult Director [employer] -Functional quadriplegia, poa, suspected: consult PT OR today after hemodialysis History Interval history: Patient was seen and examined. Follow-up on current diagnosis AMS. Overnight uneventful. Patient denies any chest pain, shortness breath, nausea/vomiting or severe headaches. Imaging, nursing note, chart, labs and old chart reviewed. Discussed with patient. Hospitalist Physical - Physical exam Narrative exam: GEN: chronically debilated, ill appearing NAD, Awake, Alert, Orientated x3 with hints HEENT: NCAT, EOMI, PERRL, OP Clear NECK: supple, no adenopathy, no thyromegaly, no JVD CVS/HEART: RRR, normal S1S2, pulses present bilaterally CHEST/LUNGS: CTA B, Symmetrical chest expansion, good air entry bilaterally GI/Abdomen: soft, NTND, good bowel sounds, no guarding or rebound /Bladder: no suprapubic tenderness, no CVA or paraspinal tenderness EXT/Skin: necrotic left foot, unstageable deep sacral ulcer MSK: right aka, Neuro: CN 2-12 grossly intact, no new focal deficits Psych: calm - Constitutional Vitals: Temp Pulse Resp BP Pulse Ox 97.7 F 84 18 114/59 98 11/11/17 14:45 11/11/17 14:45 11/11/17 14:45 11/11/17 14:45 11/11/17 14:45 General appearance: Present: no acute distress, other (Alert and oriented 3) Results - Labs CBC & Chem 7: 11/11/17 06:17 11/11/17 06:17 Labs: Laboratory Last Values WBC 13.4 K/mm3 (4.5-11.0) H 11/11/17 06:17 RBC 3.02 M/mm3 (3.65-5.03) L 11/11/17 06:17 Hgb 8.3 gm/dl (10.1-14.3) L 11/11/17 06:17 Hct 26.8 % (30.3-42.9) L 11/11/17 06:17 MCV 89 fl (79-97) 11/11/17 06:17 MCH 28 pg (28-32) 11/11/17 06:17 MCHC 31 % (30-34) 11/11/17 06:17 RDW 18.6 % (13.2-15.2) H 11/11/17 06:17 Plt Count 200 K/mm3 (140-440) 11/11/17 06:17 Lymph % (Auto) 8.5 % (13.4-35.0) L 11/09/17 09:44 [place] % (Auto) 6.4 % (0.0-7.3) 11/09/17 09:44 Eos % (Auto) 1.5 % (0.0-4.3) 11/09/17 09:44 Baso % (Auto) 0.4 % (0.0-1.8) 11/09/17 09:44 Lymph # 1.0 K/mm3 (1.2-5.4) L 11/09/17 09:44 [place] # 0.8 K/mm3 (0.0-0.8) 11/09/17 09:44 Eos # 0.2 K/mm3 (0.0-0.4) 11/09/17 09:44 Baso # 0.0 K/mm3 (0.0-0.1) 11/09/17 09:44 Seg Neutrophils % 83.2 % (40.0-70.0) H 11/09/17 09:44 Seg Neutrophils # 9.8 K/mm3 (1.8-7.7) H 11/09/17 09:44 PT 16.8 Sec. (12.2-14.9) H 11/07/17 15:11 INR 1.29 (0.87-1.13) H 11/07/17 15:11 APTT 39.4 Sec. (24.2-36.6) H 11/07/17 15:11 Sodium 134 mmol/L (137-145) L 11/11/17 06:17 Potassium 3.3 mmol/L (3.6-5.0) L 11/11/17 06:17 Chloride 93.9 mmol/L (98-107) L 11/11/17 06:17 Carbon Dioxide 27 mmol/L (22-30) 11/11/17 06:17 Anion Gap 16 mmol/L 11/11/17 06:17 BUN 31 mg/dL (7-17) H 11/11/17 06:17 Creatinine 3.7 mg/dL (0.7-1.2) H 11/11/17 06:17 Estimated GFR 15 ml/min 11/11/17 06:17 BUN/Creatinine Ratio 8 % 11/11/17 06:17 Glucose 117 mg/dL (65-100) H 11/11/17 06:17 POC Glucose 163 (70-105) H 11/11/17 15:43 Lactic Acid 1.00 mmol/L (0.7-2.0) 11/08/17 01:47 Calcium 9.3 mg/dL (8.4-10.2) 11/11/17 06:17 Total Bilirubin 0.30 mg/dL (0.1-1.2) 11/07/17 15:11 AST 6 units/L (5-40) 11/07/17 15:11 ALT < 5 units/L (7-56) L 11/07/17 15:11 Alkaline Phosphatase 155 units/L (35-129) H 11/07/17 15:11 Total Creatine Kinase 18 units/L (30-135) L 11/08/17 01:47 CK-MB (CK-2) 1.4 ng/mL (0.0-4.0) 11/08/17 01:47 CK-MB (CK-2) Rel Index 7.7 (0-4) H 11/08/17 01:47 Troponin T 2.250 ng/mL (0.00-0.029) H* 11/08/17 09:04 NT-Pro-B Natriuret Pep > 66487 pg/mL (0-900) H 11/07/17 15:11 Total Protein 5.6 g/dL (6.3-8.2) L 11/07/17 15:11 Albumin 2.6 g/dL (3.9-5) L 11/07/17 15:11 Albumin/Globulin Ratio 0.9 % 11/07/17 15:11 Triglycerides 175 mg/dL (2-149) H 11/07/17 15:11 Cholesterol 114 mg/dL (50-199) 11/07/17 15:11 LDL Cholesterol Direct 40 mg/dL (50-130) L 11/07/17 15:11 HDL Cholesterol 33 mg/dL (40-59) L 11/07/17 15:11 Cholesterol/HDL Ratio 3.45 % 11/07/17 15:11 TSH 3.420 mlU/mL (0.270-4.200) 11/07/17 15:11 Free T4 1.19 ng/dL (0.76-1.46) 11/07/17 15:11 Random Vancomycin 14.3 ug/mL (0-40.0) 11/10/17 13:37 Blood Type B POSITIVE 11/08/17 01:47 Antibody Screen Negative 11/08/17 01:47 Crossmatch See Detail 11/08/17 01:47
[2017-11-11] MEDS ORDERED: ZOFRAN ONE (17:14)
[2017-11-11] MEDS: MAXIPIME 2 GM in NACL 0.9% 20 ML IV SCH (17:20)
--- NOTE | 2017-11-11 17:43 | Post Operative Note ---
Date of procedure: 11/11/17 Pre-op diagnosis: unstageable infected sacral decubitus ulcer, wound of R BKA stump Post-op diagnosis: other (infected stage 4 sacral decubitus ulcer, necrotic soft tissue infection R BKA stump wound) Findings: 1. stage 4 sacral decubitus wound with necrotic subcutaneous tissue, fascia, and bone involvement 2. Necrotic soft tissue infection of BKA stump with exposed bone Procedure: 1. Excisional debridement of infected sacral decubitus wound 2. Excisional debridement of necrotizing soft tissue infection R BKA stump wound Anesthesia: GETA Surgeon: NATASHA HANSEN Estimated blood loss: other (25cc) Pathology: list (1. bone culture sacrum, 2. tissue culture sacrum, 3. tissue culture R BKA stump) Specimen disposition: to lab Condition: stable Disposition: PACU
[2017-11-11] MEDS ORDERED: DILAUDID IV PRN (18:21)
[2017-11-11] MEDS: DILAUDID IV PRN ×2 (18:30→18:45)
[2017-11-11] MEDS: LANTUS SUB-Q SCH (23:24)
[2017-11-12] MEDS: MAXIPIME 2 GM in NACL 0.9% 20 ML IV SCH (10:50)
[2017-11-12] MEDS: HumuLIN R SUB-Q SCH ×4 (10:51→23:09)
[2017-11-12] MEDS: ASPIRIN PO SCH (10:51)
[2017-11-12 11:07] LABS: Hematocrit 27.1 % (30.3-42.9); Hemoglobin 8.4 gm/dl (10.1-14.3); Mean Corpuscular HGB Conc 31 % (30-34); Mean Corpuscular Hemoglobin 27 pg (28-32); Mean Corpuscular Volume 88 fl (79-97); Platelet Count 204 K/mm3 (140-440); Red Blood Count 3.09 M/mm3 (3.65-5.03); Red Cell Distribution Width 18.5 % (13.2-15.2)
[2017-11-12 11:16] LABS: Calcium 9.2 mg/dL (8.4-10.2)
--- NOTE | 2017-11-12 11:26 | Progress Note ---
Assessment and Plan Assessment and plan: Patient is 57 yo woman from [place] with a h/o hypertension, IDDM, CVA, ESRD on HD, PAD s/p right BKA, * pCXR reported blunting of the right costophrenic angle suggesting small pleural effusion or chronic pleural reaction, Cardiomegaly * CTH wo contrast reported small vessell ischemic changes, no acute intracranial process noted, no change, stable chronic sinusitis -Sepsis from infected pressure ulcer, leg/stomp ulcers with cellulitis and abscess, poa: iv abx, wound care consult, OR once Cardiology clears -Stomp infection with kasandra still in place: wound care consulted s/p debribement -Elevated troponins, nonspecific: Cardiology ev -ESRD on HD: consult Nephrology -Acute on chronic anemia of chronic disease: blood transfusion with HD -IDDM with hyperglycemia: add ssi, ada -Severe protein calorie malnutriton, poa: consult Counter Clerk -Functional quadriplegia, poa, suspected: consult PT "Date of procedure: 11/11/17 Pre-op diagnosis: unstageable infected sacral decubitus ulcer, wound of R BKA stump Post-op diagnosis: other (infected stage 4 sacral decubitus ulcer, necrotic soft tissue infection R BKA stump wound) Findings: 1. stage 4 sacral decubitus wound with necrotic subcutaneous tissue, fascia, and bone involvement 2. Necrotic soft tissue infection of BKA stump with exposed bone Procedure: 1. Excisional debridement of infected sacral decubitus wound 2. Excisional debridement of necrotizing soft tissue infection R BKA stump wound Anesthesia: GETA Surgeon: NATASHA HANSEN Estimated blood loss: other (25cc) Pathology: list (1. bone culture sacrum, 2. tissue culture sacrum, 3. tissue culture R BKA stump) Specimen disposition: to lab Condition: stable Disposition: PACU Addendum entered and electronically signed by NATASHA HANSEN DO 11/11/17 19:01: Sacral wound measurement : 13cm x 10cm x 3cm (d) R BKA stump wound: 15cm x 6 cm x 5 cm (d)" Renal function, WBC levels are improved SNF placement on Tuesday. History Interval history: Patient was seen and examined. Follow-up on current diagnosis AMS. Overnight uneventful. Patient denies any chest pain, shortness breath, nausea/vomiting or severe headaches. Imaging, nursing note, chart, labs and old chart reviewed. Discussed with patient. Hospitalist Physical - Physical exam Narrative exam: GEN: chronically debilated, ill appearing NAD, Awake, Alert, Orientated HEENT: NCAT, EOMI, PERRL, OP Clear NECK: supple, no adenopathy, no thyromegaly, no JVD CVS/HEART: RRR, normal S1S2, pulses present bilaterally CHEST/LUNGS: CTA B, Symmetrical chest expansion, good air entry bilaterally GI/Abdomen: soft, NTND, good bowel sounds, no guarding or rebound /Bladder: no suprapubic tenderness, no CVA or paraspinal tenderness EXT/Skin: surg dsg intact MSK: right aka, Neuro: CN 2-12 grossly intact, no new focal deficits Psych: calm - Constitutional Vitals: Temp Pulse Resp BP Pulse Ox 98.7 F 70 18 142/49 95 11/12/17 08:00 11/12/17 08:19 11/12/17 08:19 11/12/17 08:19 11/12/17 10:07 General appearance: Present: no acute distress, other (Alert and oriented 3) Results - Labs CBC & Chem 7: 11/12/17 10:43 11/12/17 10:37 Labs: Laboratory Last Values WBC 11.7 K/mm3 (4.5-11.0) H 11/12/17 10:43 RBC 3.09 M/mm3 (3.65-5.03) L 11/12/17 10:43 Hgb 8.4 gm/dl (10.1-14.3) L 11/12/17 10:43 Hct 27.1 % (30.3-42.9) L 11/12/17 10:43 MCV 88 fl (79-97) 11/12/17 10:43 MCH 27 pg (28-32) L 11/12/17 10:43 MCHC 31 % (30-34) 11/12/17 10:43 RDW 18.5 % (13.2-15.2) H 11/12/17 10:43 Plt Count 204 K/mm3 (140-440) 11/12/17 10:43 Lymph % (Auto) 8.5 % (13.4-35.0) L 11/09/17 09:44 [place] % (Auto) 6.4 % (0.0-7.3) 11/09/17 09:44 Eos % (Auto) 1.5 % (0.0-4.3) 11/09/17 09:44 Baso % (Auto) 0.4 % (0.0-1.8) 11/09/17 09:44 Lymph # 1.0 K/mm3 (1.2-5.4) L 11/09/17 09:44 [place] # 0.8 K/mm3 (0.0-0.8) 11/09/17 09:44 Eos # 0.2 K/mm3 (0.0-0.4) 11/09/17 09:44 Baso # 0.0 K/mm3 (0.0-0.1) 11/09/17 09:44 Seg Neutrophils % 83.2 % (40.0-70.0) H 11/09/17 09:44 Seg Neutrophils # 9.8 K/mm3 (1.8-7.7) H 11/09/17 09:44 PT 16.8 Sec. (12.2-14.9) H 11/07/17 15:11 INR 1.29 (0.87-1.13) H 11/07/17 15:11 APTT 39.4 Sec. (24.2-36.6) H 11/07/17 15:11 Sodium 137 mmol/L (137-145) 11/12/17 10:37 Potassium 3.2 mmol/L (3.6-5.0) L 11/12/17 10:37 Chloride 98.6 mmol/L (98-107) 11/12/17 10:37 Carbon Dioxide 25 mmol/L (22-30) 11/12/17 10:37 Anion Gap 17 mmol/L 11/12/17 10:37 BUN 18 mg/dL (7-17) H 11/12/17 10:37 Creatinine 2.3 mg/dL (0.7-1.2) H 11/12/17 10:37 Estimated GFR 27 ml/min 11/12/17 10:37 BUN/Creatinine Ratio 8 % 11/12/17 10:37 Glucose 150 mg/dL (65-100) H 11/12/17 10:37 POC Glucose 167 (70-105) H 11/12/17 06:31 Lactic Acid 1.00 mmol/L (0.7-2.0) 11/08/17 01:47 Calcium 9.2 mg/dL (8.4-10.2) 11/12/17 10:37 Total Bilirubin 0.30 mg/dL (0.1-1.2) 11/07/17 15:11 AST 6 units/L (5-40) 11/07/17 15:11 ALT < 5 units/L (7-56) L 11/07/17 15:11 Alkaline Phosphatase 155 units/L (35-129) H 11/07/17 15:11 Total Creatine Kinase 18 units/L (30-135) L 11/08/17 01:47 CK-MB (CK-2) 1.4 ng/mL (0.0-4.0) 11/08/17 01:47 CK-MB (CK-2) Rel Index 7.7 (0-4) H 11/08/17 01:47 Troponin T 2.250 ng/mL (0.00-0.029) H* 11/08/17 09:04 NT-Pro-B Natriuret Pep > 25929 pg/mL (0-900) H 11/07/17 15:11 Total Protein 5.6 g/dL (6.3-8.2) L 11/07/17 15:11 Albumin 2.6 g/dL (3.9-5) L 11/07/17 15:11 Albumin/Globulin Ratio 0.9 % 11/07/17 15:11 Triglycerides 175 mg/dL (2-149) H 11/07/17 15:11 Cholesterol 114 mg/dL (50-199) 11/07/17 15:11 LDL Cholesterol Direct 40 mg/dL (50-130) L 11/07/17 15:11 HDL Cholesterol 33 mg/dL (40-59) L 11/07/17 15:11 Cholesterol/HDL Ratio 3.45 % 11/07/17 15:11 TSH 3.420 mlU/mL (0.270-4.200) 11/07/17 15:11 Free T4 1.19 ng/dL (0.76-1.46) 11/07/17 15:11 Random Vancomycin 14.3 ug/mL (0-40.0) 11/10/17 13:37 Blood Type B POSITIVE 11/08/17 01:47 Antibody Screen Negative 11/08/17 01:47 Crossmatch See Detail 11/08/17 01:47
--- NOTE | 2017-11-12 11:44 | Progress Note ---
Assessment and Plan Impression: * End stage renal disease on hemodialysis * Relative hypotension w/ hx of hypertension * AMS * Elevated troponin * hypokalemia * Anemia secondary to ESRD * Peripheral artery disease s/p BKA * Wound infection - GNR Plan: * Continue HD MWF - UF as tolerated * cardiology notes reviewed; * increase k bath with hd * Abx per primary team * Blood cx are NGTD * Epogen TIW prn * Transfuse pRBC prn * Renal diet Subjective Date of service: 11/12/17 Principal diagnosis: esrd Interval history: resting well in bed today Objective - Exam Narrative Exam: GEN: chronically debilated, ill appearing NAD, Awake, Alert, Orientated x3 with hints HEENT: NCAT, EOMI, PERRL, OP Clear NECK: supple, no adenopathy, no thyromegaly, no JVD CVS/HEART: RRR, normal S1S2, pulses present bilaterally CHEST/LUNGS: CTA B, Symmetrical chest expansion, good air entry bilaterally GI/Abdomen: soft, NTND, good bowel sounds, no guarding or rebound /Bladder: no suprapubic tenderness, no CVA or paraspinal tenderness EXT/Skin: necrotic left foot, unstageable deep sacral ulcer MSK: right aka, Neuro: CN 2-12 grossly intact, no new focal deficits Psych: calm - Vital Signs Vital signs: Vital Signs - 12hr 11/11/17 11/11/17 11/12/17 23:45 23:46 00:24 Temperature 97.4 F L Pulse Rate 79 Respiratory 22 Rate Blood Pressure 95/60 O2 Sat by Pulse 99 Oximetry 11/12/17 11/12/17 11/12/17 04:34 04:35 08:00 Temperature 98.8 F 98.7 F Pulse Rate 75 76 Respiratory 20 Rate Blood Pressure 153/72 O2 Sat by Pulse 99 100 Oximetry 11/12/17 11/12/17 08:19 10:07 Temperature Pulse Rate 70 Respiratory 18 Rate Blood Pressure 142/49 O2 Sat by Pulse 98 95 Oximetry - Lab 11/12/17 10:43 11/12/17 10:37 Most recent lab results Calcium 9.2 mg/dL (8.4-10.2) 11/12/17 10:37
--- NOTE | 2017-11-12 12:04 | Progress Note ---
Assessment and Plan - Patient Problems (1) Elevated troponin level Current Visit: Yes Status: Acute Plan to address problem: Nonspecific isolated troponin increase, will manage conservatively in the absence of cardiac symptoms. Subjective Date of service: 11/12/17 Principal diagnosis: esrd Interval history: Patient is comfortable, in no acute distress. No new cardiac complaints. Objective Vital Signs Temp Pulse Pulse Resp Resp BP Pulse Ox 11/12/17 10:07 95 11/12/17 08:19 70 18 142/49 98 11/12/17 08:00 98.7 F 11/12/17 04:35 76 100 11/12/17 04:34 98.8 F 75 20 153/72 99 11/12/17 00:24 22 11/11/17 23:46 79 95/60 99 11/11/17 23:45 97.4 F L 11/11/17 23:30 22 11/11/17 23:24 22 11/11/17 20:40 94 11/11/17 19:50 85 11/11/17 19:20 80 22 99 11/11/17 19:18 86 136/52 100 11/11/17 19:17 97.5 F L 86 18 136/52 100 11/11/17 18:56 15 11/11/17 18:45 83 16 127/46 99 11/11/17 18:30 82 14 134/53 99 11/11/17 18:15 84 14 139/46 99 11/11/17 18:00 83 15 143/53 99 11/11/17 17:55 83 17 134/53 97 11/11/17 17:50 83 16 146/50 97 11/11/17 17:45 83 16 136/53 95 11/11/17 17:40 98.7 F 89 18 143/47 100 11/11/17 14:45 97.7 F 84 18 114/59 98 11/11/17 14:20 98.2 F 81 16 128/57 11/11/17 14:15 80 110/54 11/11/17 14:00 79 127/63 11/11/17 13:45 76 104/52 11/11/17 13:30 75 92/53 11/11/17 13:15 76 89/54 11/11/17 13:00 70 90/42 11/11/17 12:45 76 111/58 11/11/17 12:30 75 105/64 11/11/17 12:15 74 106/64 - Physical Examination General: No Apparent Distress HEENT: Positive: PERRL Neck: Positive: neck supple Cardiac: Positive: Reg Rate and Rhythm Lungs: Positive: Decreased Breath Sounds Neuro: Positive: Grossly Intact Abdomen: Positive: Soft Skin: Positive: Clear Extremities: Absent: edema - Labs and Meds CBC 11/12/17 Range/Units 10:43 WBC 11.7 H (4.5-11.0) K/mm3 RBC 3.09 L (3.65-5.03) M/mm3 Hgb 8.4 L (10.1-14.3) gm/dl Hct 27.1 L (30.3-42.9) % Plt Count 204 (140-440) K/mm3 Comprehensive Metabolic Panel 11/12/17 Range/Units 10:37 Sodium 137 (137-145) mmol/L Potassium 3.2 L (3.6-5.0) mmol/L Chloride 98.6 (98-107) mmol/L Carbon Dioxide 25 (22-30) mmol/L BUN 18 H (7-17) mg/dL Creatinine 2.3 H (0.7-1.2) mg/dL Glucose 150 H (65-100) mg/dL Calcium 9.2 (8.4-10.2) mg/dL
[2017-11-12] MEDS: DAKIN'S FULL STRENGTH TP SCH (12:49)
[2017-11-12] MEDS: SODIUM CHLORIDE FLUSH SYRINGE 10 ML IV SCH ×2 (12:50→23:09)
--- NOTE | 2017-11-12 16:54 | Progress Note ---
Assessment and Plan 57 yo F POD 1 s/p 1. Excisional debridement of infected sacral decubitus wound 2. Excisional debridement of necrotizing soft tissue infection R BKA stump wound Plan: 1. continue daily wound care 2. prn pain control 3. offloading 4. optimize nutrition, encourage PO intake 5. c/w IV abx per primary team Please call with questions or concerns. Subjective Date of service: 11/12/17 Narrative: Pt seen and examined. No complaints. No overnight events. Objective Vital Signs - 12hr 11/12/17 11/12/17 11/12/17 08:00 08:19 10:07 Temperature 98.7 F Pulse Rate 70 Respiratory 18 Rate Blood Pressure 142/49 Blood Pressure [Right] O2 Sat by Pulse 98 95 Oximetry 11/12/17 12:00 Temperature 97.7 F Pulse Rate 45 L Respiratory 16 Rate Blood Pressure Blood Pressure 118/54 [Right] O2 Sat by Pulse 96 Oximetry - General physical appearance Narrative Exam: Gen: Awake and alert. NAD R BKA stump wound: All packing removed. Wound is clean and dry without drainage. Packed with dakins moistened 4x4 gauze, covered with ABD pads and wrapped with kerlex. Placed in knee immobilizer Sacrum: All packing removed. Wound base is clean without drainage or foul odor. No bleeding. Wound packed with dakins moistened kerlex and covered with fluff gauze and sacral dressing - Labs 11/12/17 10:43 11/12/17 10:37 Diabetes panel 11/12/17 Range/Units 10:37 Sodium 137 (137-145) mmol/L Potassium 3.2 L (3.6-5.0) mmol/L Chloride 98.6 (98-107) mmol/L Carbon Dioxide 25 (22-30) mmol/L BUN 18 H (7-17) mg/dL Creatinine 2.3 H (0.7-1.2) mg/dL Glucose 150 H (65-100) mg/dL Calcium 9.2 (8.4-10.2) mg/dL Calcium panel 11/12/17 Range/Units 10:37 Calcium 9.2 (8.4-10.2) mg/dL Pituitary panel 11/12/17 Range/Units 10:37 Sodium 137 (137-145) mmol/L Potassium 3.2 L (3.6-5.0) mmol/L Chloride 98.6 (98-107) mmol/L Carbon Dioxide 25 (22-30) mmol/L BUN 18 H (7-17) mg/dL Creatinine 2.3 H (0.7-1.2) mg/dL Glucose 150 H (65-100) mg/dL Calcium 9.2 (8.4-10.2) mg/dL Adrenal panel 11/12/17 Range/Units 10:37 Sodium 137 (137-145) mmol/L Potassium 3.2 L (3.6-5.0) mmol/L Chloride 98.6 (98-107) mmol/L Carbon Dioxide 25 (22-30) mmol/L BUN 18 H (7-17) mg/dL Creatinine 2.3 H (0.7-1.2) mg/dL Glucose 150 H (65-100) mg/dL Calcium 9.2 (8.4-10.2) mg/dL
--- NOTE | 2017-11-12 17:09 | Post Anesthesia Evaluation ---
- Post Anesthesia Evaluation Patient Participated: Yes Airway Patent: Yes Stable Respiratory Function: Yes Nausea/Vomiting: No Temp > 96.8F: Yes Pain Manageable: Yes Adequeate Hydration: Yes Anesthesia Complications: No Block Receding Appropriately: Not Applicable Patient on Ventilator: No
[2017-11-12] MEDS: LANTUS SUB-Q SCH (23:09)
[2017-11-13] MEDS: NACL 0.9% 1000 ML 1,000 ML IV SCH (05:51)
[2017-11-13] MEDS: HumuLIN R SUB-Q SCH ×4 (10:37→23:17)
[2017-11-13] MEDS: ASPIRIN PO SCH (10:37)
[2017-11-13] MEDS: MAXIPIME 2 GM in NACL 0.9% 20 ML IV SCH (10:46)
[2017-11-13] MEDS: SODIUM CHLORIDE FLUSH SYRINGE 10 ML IV SCH ×2 (10:47→23:14)
--- NOTE | 2017-11-13 11:01 | Progress Note ---
Assessment and Plan Impression: * End stage renal disease on hemodialysis * Relative hypotension w/ hx of hypertension * AMS * Elevated troponin * hypokalemia * Anemia secondary to ESRD * Peripheral artery disease s/p BKA * Wound infection - GNR Plan: * Continue HD MWF - UF as tolerated * cardiology notes reviewed; * increase k bath with hd * Abx per primary team * Blood cx are NGTD * Epogen TIW prn * Transfuse pRBC prn * Renal diet Subjective Date of service: 11/13/17 Principal diagnosis: esrd Interval history: resting well in bed today Objective - Exam Narrative Exam: GEN: chronically debilated, ill appearing NAD, Awake, Alert, Orientated x3 with hints HEENT: NCAT, EOMI, PERRL, OP Clear NECK: supple, no adenopathy, no thyromegaly, no JVD CVS/HEART: RRR, normal S1S2, pulses present bilaterally CHEST/LUNGS: CTA B, Symmetrical chest expansion, good air entry bilaterally GI/Abdomen: soft, NTND, good bowel sounds, no guarding or rebound /Bladder: no suprapubic tenderness, no CVA or paraspinal tenderness EXT/Skin: necrotic left foot, unstageable deep sacral ulcer MSK: right aka, Neuro: CN 2-12 grossly intact, no new focal deficits Psych: calm - Vital Signs Vital signs: Vital Signs - 12hr 11/12/17 11/13/17 11/13/17 23:54 03:49 03:53 Temperature 97.6 F 97.8 F Pulse Rate 76 75 78 Respiratory 20 20 Rate Blood Pressure 128/48 150/38 O2 Sat by Pulse 100 100 100 Oximetry 11/13/17 11/13/17 04:00 08:45 Temperature 98.2 F Pulse Rate 76 78 Respiratory 16 Rate Blood Pressure 183/51 O2 Sat by Pulse 100 Oximetry - Lab 11/12/17 10:43 11/12/17 10:37 Most recent lab results Calcium 9.2 mg/dL (8.4-10.2) 11/12/17 10:37
--- NOTE | 2017-11-13 11:34 | Progress Note ---
Assessment and Plan - Patient Problems (1) Elevated troponin level Current Visit: Yes Status: Acute Plan to address problem: Nonspecific isolated troponin increase, will manage conservatively in the absence of cardiac symptoms. Subjective Date of service: 11/13/17 Principal diagnosis: esrd Interval history: Patient is awake and alert and appears comfortable, in no acute distress. She is not very, communicative. Objective Vital Signs Temp Pulse Resp BP BP Pulse Ox 11/13/17 08:45 98.2 F 78 16 183/51 100 11/13/17 04:00 76 11/13/17 03:53 97.8 F 78 20 150/38 100 11/13/17 03:49 75 100 11/12/17 23:54 97.6 F 76 20 128/48 100 11/12/17 22:44 100 11/12/17 20:30 97.6 F 72 18 168/67 100 11/12/17 17:33 68 18 140/52 100 11/12/17 16:00 97.9 F 11/12/17 12:00 97.7 F 45 L 16 118/54 96 - Physical Examination General: No Apparent Distress HEENT: Positive: PERRL Neck: Positive: neck supple Cardiac: Positive: Reg Rate and Rhythm Lungs: Positive: Decreased Breath Sounds Neuro: Positive: Grossly Intact Abdomen: Positive: Soft Skin: Positive: Clear Extremities: Absent: edema
--- NOTE | 2017-11-13 12:38 | Progress Note ---
Assessment and Plan Assessment and plan: Patient is 57 yo woman from [place] with a h/o hypertension, IDDM, CVA, ESRD on HD, PAD s/p right BKA, * pCXR reported blunting of the right costophrenic angle suggesting small pleural effusion or chronic pleural reaction, Cardiomegaly * CTH wo contrast reported small vessell ischemic changes, no acute intracranial process noted, no change, stable chronic sinusitis -Sepsis from infected pressure ulcer, leg/stomp ulcers with cellulitis and abscess, poa: iv abx, wound care consult, OR once Cardiology clears -Stomp infection with kasandra still in place: wound care consulted s/p debribement -Elevated troponins, nonspecific: Cardiology ev -ESRD on HD: consult Nephrology -Acute on chronic anemia of chronic disease: blood transfusion with HD -IDDM with hyperglycemia: add ssi, ada -Severe protein calorie malnutriton, poa: consult Hand Candy Dipper -Functional quadriplegia, poa, suspected: consult PT "Date of procedure: 11/11/17 Pre-op diagnosis: unstageable infected sacral decubitus ulcer, wound of R BKA stump Post-op diagnosis: other (infected stage 4 sacral decubitus ulcer, necrotic soft tissue infection R BKA stump wound) Findings: 1. stage 4 sacral decubitus wound with necrotic subcutaneous tissue, fascia, and bone involvement 2. Necrotic soft tissue infection of BKA stump with exposed bone Procedure: 1. Excisional debridement of infected sacral decubitus wound 2. Excisional debridement of necrotizing soft tissue infection R BKA stump wound Anesthesia: GETA Surgeon: NATASHA HANSEN Estimated blood loss: other (25cc) Pathology: list (1. bone culture sacrum, 2. tissue culture sacrum, 3. tissue culture R BKA stump) Specimen disposition: to lab Condition: stable Disposition: PACU Addendum entered and electronically signed by NATASHA HANSEN DO 11/11/17 19:01: Sacral wound measurement : 13cm x 10cm x 3cm (d) R BKA stump wound: 15cm x 6 cm x 5 cm (d)" Renal function, WBC levels are improved Awaiting Wound culture results SNF placement on Tuesday. History Interval history: Patient was seen and examined. Follow-up on current diagnosis AMS. Overnight uneventful. Patient is not talking to me today. Imaging, nursing note, chart, labs and old chart reviewed. Discussed with daughter Fransisco and gave her update Hospitalist Physical - Physical exam Narrative exam: GEN: chronically debilated, ill appearing NAD, Awake, Alert, Orientated HEENT: NCAT, EOMI, PERRL, OP Clear NECK: supple, no adenopathy, no thyromegaly, no JVD CVS/HEART: RRR, normal S1S2, pulses present bilaterally CHEST/LUNGS: CTA B, Symmetrical chest expansion, good air entry bilaterally GI/Abdomen: soft, NTND, good bowel sounds, no guarding or rebound /Bladder: no suprapubic tenderness, no CVA or paraspinal tenderness EXT/Skin: surg dsg intact MSK: right aka, Neuro: CN 2-12 grossly intact, no new focal deficits Psych: calm - Constitutional Vitals: Temp Pulse Resp BP Pulse Ox 98.2 F 78 16 183/51 99 11/13/17 08:45 11/13/17 08:45 11/13/17 08:45 11/13/17 08:45 11/13/17 11:45 General appearance: Present: no acute distress, other (Alert and oriented 3) Results - Labs CBC & Chem 7: 11/12/17 10:43 11/12/17 10:37 Labs: Laboratory Last Values WBC 11.7 K/mm3 (4.5-11.0) H 11/12/17 10:43 RBC 3.09 M/mm3 (3.65-5.03) L 11/12/17 10:43 Hgb 8.4 gm/dl (10.1-14.3) L 11/12/17 10:43 Hct 27.1 % (30.3-42.9) L 11/12/17 10:43 MCV 88 fl (79-97) 11/12/17 10:43 MCH 27 pg (28-32) L 11/12/17 10:43 MCHC 31 % (30-34) 11/12/17 10:43 RDW 18.5 % (13.2-15.2) H 11/12/17 10:43 Plt Count 204 K/mm3 (140-440) 11/12/17 10:43 Lymph % (Auto) 8.5 % (13.4-35.0) L 11/09/17 09:44 Griggs % (Auto) 6.4 % (0.0-7.3) 11/09/17 09:44 Eos % (Auto) 1.5 % (0.0-4.3) 11/09/17 09:44 Baso % (Auto) 0.4 % (0.0-1.8) 11/09/17 09:44 Lymph # 1.0 K/mm3 (1.2-5.4) L 11/09/17 09:44 Griggs # 0.8 K/mm3 (0.0-0.8) 11/09/17 09:44 Eos # 0.2 K/mm3 (0.0-0.4) 11/09/17 09:44 Baso # 0.0 K/mm3 (0.0-0.1) 11/09/17 09:44 Seg Neutrophils % 83.2 % (40.0-70.0) H 11/09/17 09:44 Seg Neutrophils # 9.8 K/mm3 (1.8-7.7) H 11/09/17 09:44 PT 16.8 Sec. (12.2-14.9) H 11/07/17 15:11 INR 1.29 (0.87-1.13) H 11/07/17 15:11 APTT 39.4 Sec. (24.2-36.6) H 11/07/17 15:11 Sodium 137 mmol/L (137-145) 11/12/17 10:37 Potassium 3.2 mmol/L (3.6-5.0) L 11/12/17 10:37 Chloride 98.6 mmol/L (98-107) 11/12/17 10:37 Carbon Dioxide 25 mmol/L (22-30) 11/12/17 10:37 Anion Gap 17 mmol/L 11/12/17 10:37 BUN 18 mg/dL (7-17) H 11/12/17 10:37 Creatinine 2.3 mg/dL (0.7-1.2) H 11/12/17 10:37 Estimated GFR 27 ml/min 11/12/17 10:37 BUN/Creatinine Ratio 8 % 11/12/17 10:37 Glucose 150 mg/dL (65-100) H 11/12/17 10:37 POC Glucose 163 (70-105) H 11/13/17 07:10 Lactic Acid 1.00 mmol/L (0.7-2.0) 11/08/17 01:47 Calcium 9.2 mg/dL (8.4-10.2) 11/12/17 10:37 Total Bilirubin 0.30 mg/dL (0.1-1.2) 11/07/17 15:11 AST 6 units/L (5-40) 11/07/17 15:11 ALT < 5 units/L (7-56) L 11/07/17 15:11 Alkaline Phosphatase 155 units/L (35-129) H 11/07/17 15:11 Total Creatine Kinase 18 units/L (30-135) L 11/08/17 01:47 CK-MB (CK-2) 1.4 ng/mL (0.0-4.0) 11/08/17 01:47 CK-MB (CK-2) Rel Index 7.7 (0-4) H 11/08/17 01:47 Troponin T 2.250 ng/mL (0.00-0.029) H* 11/08/17 09:04 NT-Pro-B Natriuret Pep > 88914 pg/mL (0-900) H 11/07/17 15:11 Total Protein 5.6 g/dL (6.3-8.2) L 11/07/17 15:11 Albumin 2.6 g/dL (3.9-5) L 11/07/17 15:11 Albumin/Globulin Ratio 0.9 % 11/07/17 15:11 Triglycerides 175 mg/dL (2-149) H 11/07/17 15:11 Cholesterol 114 mg/dL (50-199) 11/07/17 15:11 LDL Cholesterol Direct 40 mg/dL (50-130) L 11/07/17 15:11 HDL Cholesterol 33 mg/dL (40-59) L 11/07/17 15:11 Cholesterol/HDL Ratio 3.45 % 11/07/17 15:11 TSH 3.420 mlU/mL (0.270-4.200) 11/07/17 15:11 Free T4 1.19 ng/dL (0.76-1.46) 11/07/17 15:11 Random Vancomycin 14.3 ug/mL (0-40.0) 11/10/17 13:37 Blood Type B POSITIVE 11/08/17 01:47 Antibody Screen Negative 11/08/17 01:47 Crossmatch See Detail 11/08/17 01:47
--- NOTE | 2017-11-13 14:57 | Progress Note ---
Assessment and Plan 57 yo F POD 2 s/p 1. Excisional debridement of infected sacral decubitus wound 2. Excisional debridement of necrotizing soft tissue infection R BKA stump wound Plan: 1. continue daily wound care, orders placed for nursing to change R BKA and sacral wound dressing today 2. prn pain control 3. offloading 4. optimize nutrition, encourage PO intake 5. c/w IV abx per primary team 6. will reeval wound with dean of admissions in am to evaluate for wound vac placement DC planning to SNF per 1' team Please call with questions or concerns. Subjective Date of service: 11/13/17 Narrative: Pt seen and examined. No overnight events. No f/c. Objective Vital Signs - 12hr 11/13/17 11/13/17 11/13/17 03:49 03:53 04:00 Temperature 97.8 F Pulse Rate 75 78 76 Pulse Rate [ Apical] Respiratory 20 Rate Blood Pressure 150/38 O2 Sat by Pulse 100 100 Oximetry 11/13/17 11/13/17 11/13/17 08:45 10:00 11:45 Temperature 98.2 F Pulse Rate 78 74 Pulse Rate [ 79 Apical] Respiratory 16 18 Rate Blood Pressure 183/51 O2 Sat by Pulse 100 100 99 Oximetry - General physical appearance Narrative Exam: Gen: Awake but not communicative. NAD CV: S1, S2+ resp: even and unlabored Ext: R BKA dressing c/d/i with knee immobilizer in place - Labs 11/12/17 10:43 11/12/17 10:37
[2017-11-13] MEDS: DAKIN'S FULL STRENGTH TP SCH (17:03)
--- NOTE | 2017-11-13 18:14 | Operative Report ---
Operative Report Operative Report: Date of procedure: 11/11/17 Pre-op diagnosis: unstageable infected sacral decubitus ulcer, wound of R BKA stump Post-op diagnosis: other (infected stage 4 sacral decubitus ulcer, necrotic soft tissue infection R BKA stump wound) Findings: 1. stage 4 sacral decubitus wound with necrotic subcutaneous tissue, fascia, and bone involvement 2. Necrotic soft tissue infection of BKA stump with exposed bone Sacral wound measurement : 13cm x 10cm x 3cm (d) R BKA stump wound: 15cm x 6 cm x 5 cm (d) Procedure: 1. Excisional debridement of infected sacral decubitus wound 2. Excisional debridement of necrotizing soft tissue infection R BKA stump wound Anesthesia: CANDE Surgeon: NATASHA HANSEN Estimated blood loss: other (25cc) Pathology: list (1. bone culture sacrum, 2. tissue culture sacrum, 3. tissue culture R BKA stump) Specimen disposition: to lab Condition: stable Disposition: PACU HPI and indication: 57 yo F with hx of ESRD on HD presented to the hospital and was found to have sepsis. The source was felt to be infected sacral wound and she also had wound of R BKA stump. All risks, benefits, and alternatives of debridement of both wounds were discussed with the patient and consent signed. Procedure in detail: The patient was identified in the preoperative area and taken to the OR and placed on the OR table in supine position. After anesthesia was induced, the patient was placed in right lateral decubitus position using the beanbag and all bony prominences were padded appropriately. The right BKA stump and sacrum were prepped with betadine and draped in the usual sterile fashion. First, the BKA stump was debrided using foreceps, a 10 blade and scissors. The necrotic skin and subcutaneous tissue were excised and there was purulent drainage in the wound which was expressed. The entire staple line was excised in order to further debride the wound. All necrotic subcutaneous tissue was debrided to the muscle and bone which was exposed. The tissue was sent for culture. The wound was checked for hemostasis which was achieved using electrocautery. The wound was irrigated with pulsavac. No bleeding was seen. The wound was packed with betadine moistened kerlex and covered with 4x4 fluff gauze, ABD pads, and wrapped with kerlex. This was then wrapped with an JEB wrap. We then turned our attention to the sacral wound. Necrotic skin, subcutaneous tissue, presacral fascia and bone was debrided. Bone cultures were obtained. The bone was soft and was grossly involved by infection. The necrotic tissue was also sent for culture. The debridement was performed using foreceps, a 10 blade, and scissors. Once all of the necrotic tissue was removed, the wound was irrigated with pulsavac and checked for hemostasis. Hemostasis was achieved using pressure and electrocautery. The wound was then packed with betadine moistened kerlex, covered with 4x4 fluff gauze, ABD pads and medipore tape. At the end of the case, all sponge, instrument, and sharp counts were correct x2. The patient was transferred to the stretcher, awoken from anesthesia, and extubated. She was taken to the PACU in stable condition.
[2017-11-13] MEDS: LANTUS SUB-Q SCH (23:17)
[2017-11-14] MEDS: DAKIN'S FULL STRENGTH TP SCH ×2 (01:35→12:50)
[2017-11-14] MEDS: HumuLIN R SUB-Q SCH ×3 (09:01→17:39)
[2017-11-14] MEDS: ASPIRIN PO SCH (09:51)
[2017-11-14] MEDS ORDERED: PROCRIT ONE (09:55)
[2017-11-14] MEDS ORDERED: HEPARIN ONE (09:56)
--- NOTE | 2017-11-14 10:13 | Progress Note ---
Assessment and Plan Impression: * End stage renal disease on hemodialysis * Relative hypotension w/ hx of hypertension * AMS * Elevated troponin * hypokalemia * Anemia secondary to ESRD * Peripheral artery disease s/p BKA * Wound infection - GNR Plan: * Continue HD MWF - UF as tolerated * cardiology notes reviewed; * increase k bath with hd * Abx per primary team * Blood cx are NGTD * Epogen TIW prn * Transfuse pRBC prn * Renal diet Subjective Date of service: 11/14/17 Principal diagnosis: esrd Interval history: resting well in bed today Objective - Exam Narrative Exam: GEN: chronically debilated, ill appearing NAD, Awake, Alert, Orientated x3 with hints HEENT: NCAT, EOMI, PERRL, OP Clear NECK: supple, no adenopathy, no thyromegaly, no JVD CVS/HEART: RRR, normal S1S2, pulses present bilaterally CHEST/LUNGS: CTA B, Symmetrical chest expansion, good air entry bilaterally GI/Abdomen: soft, NTND, good bowel sounds, no guarding or rebound /Bladder: no suprapubic tenderness, no CVA or paraspinal tenderness EXT/Skin: necrotic left foot, unstageable deep sacral ulcer MSK: right aka, Neuro: CN 2-12 grossly intact, no new focal deficits Psych: calm - Vital Signs Vital signs: Vital Signs - 12hr 11/13/17 11/14/17 11/14/17 22:28 00:25 05:10 Temperature 96.8 F L Pulse Rate 75 68 Respiratory 20 16 Rate Blood Pressure 176/47 Blood Pressure 162/47 [Right] O2 Sat by Pulse 100 98 100 Oximetry 11/14/17 11/14/17 07:32 07:34 Temperature 97.6 F Pulse Rate 74 73 Respiratory 16 Rate Blood Pressure 207/69 146/33 Blood Pressure [Right] O2 Sat by Pulse 100 99 Oximetry - Lab 11/12/17 10:43 11/12/17 10:37 Most recent lab results Calcium 9.2 mg/dL (8.4-10.2) 11/12/17 10:37
--- NOTE | 2017-11-14 12:27 | Consultation ---
History of Present Illness - Reason for Consult Consult date: 11/14/17 sepsis Requesting physician: BISHOP ALLRED - History of Present Illness 57 y/o female with history of hypertension, DM2, CVA, ESRD on HD, PAD s/p right BKA, resident of a snf; admitted on 11/07/17 due to AMS and worsening wounds. Patient is a poor historian unable to provide a history. In the ED, temp 98.5, HR 59, R 16, BP 107/33. WBC 15.6. Hg 6.9.Plat 210. Creat 4.6. Glu 213. Trop 2.2. CXR showed right costophrenic angle suggesting small pleural effusion or chronic pleural reaction, Cardiomegaly. CT head wo contrast reported small vessell ischemic changes, no acute intracranial process noted, no change, stable chronic sinusitis. Patient was found to have infected stage IV sacral ulcer with necrotic SQ tissue, fascia and bone involvement and left BKA stump infection with an abscess with bone exposure. Patient was taken to the OR on 11/11/17 underwent excisional debridement, cultures grew. Microbiology: Blood cultures: 11/08 neg Urine cultures: Respiratory cultures: Wound cultures: Sacral 11/07 ESBL Ecoli, Proteus MDR Back 11/11 GNR, E faecium Bone Proteus, Enterococcus durans BKA stump 11/11 Proteus and MRSA Stool cultures: Other: Current Antimicrobials: cefepime Previous Antimicrobials: Past History Past Medical History: anemia, diabetes, hypertension, PVD, other (ESRD ON HD, CVA, ) Past Surgical History: Other (LT FOOT SURGERY, RT BKA, RT DIALYSIS SHUNT PLACEMENT) Social history: other (she denies tobacco, alcohol or illicit drug use.) Family history: other (reviewed, and noncontributory) Medications and Allergies Allergies Allergy/AdvReac Type Severity Reaction Status Date / Time No Known Allergies Allergy Verified 06/22/17 11:30 Home Medications Medication Instructions Recorded Confirmed Last Taken Type Insulin Glargine,Hum.rec.anlog 20 units SQ QHS 06/23/17 11/08/17 Unknown History [Lantus] cloNIDine [Catapres] 0.1 mg PO TID PRN 06/23/17 11/08/17 Unknown History ALBUTEROL NEB's [Proventil 0.083% 2.5 mg IH Q4HRT PRN nebu 06/25/17 11/08/17 Unknown Rx NEBS] Carvedilol [Coreg] 12.5 mg PO DAILY tablet 06/25/17 11/08/17 Unknown Rx HYDROcodone/APAP 7.5-325 [Deane 1 each PO Q6H PRN #30 tablet 06/25/17 11/08/17 Unknown Rx 7.5-325 mg TAB] NIFEdipine [Nifedipine ER] 60 mg PO BID #60 tab.er.24 06/25/17 11/08/17 Unknown Rx Zolpidem [Ambien] 10 mg PO QHS #15 tablet 06/25/17 11/08/17 Unknown Rx Fluconazole [Diflucan TAB] 100 mg PO QDAY #7 tablet 10/18/17 11/08/17 Unknown Rx Active Meds: Active Medications Acetaminophen (Tylenol) 650 mg PO Q4H PRN PRN Reason: Pain MILD(1-3)/Fever >100.5/ESTEBAN Acetaminophen/Hydrocodone Bitart (Deane 5/325) 1 each PO Q6H PRN PRN Reason: Pain, Moderate (4-6) Last Admin: 11/11/17 23:24 Dose: 1 each Aspirin (Aspirin) 325 mg PO QDAY [facility] Last Admin: 11/14/17 09:51 Dose: Not Given Dextrose (D50w (25gm) Syringe) 50 ml IV PRN PRN PRN Reason: Hypoglycemia Epoetin Rosalio (Procrit) 10,000 unit IV CHANTAL PRN PRN Reason: hemodialysis Last Admin: 11/09/17 19:39 Dose: 10,000 unit Heparin Sodium (Porcine) (Heparin) 5,000 unit IV CHANTAL PRN PRN Reason: hemodialysis Sodium Chloride (Nacl 0.9%) 100 mls @ 999 mls/hr IV CHANTAL PRN PRN Reason: Hypotension Cefepime HCl 2 gm/ Sodium (Chloride) 20 mls @ 2 mls/min IV Q24HR [facility] Last Admin: 11/13/17 10:46 Dose: 2 mls/min Insulin Glargine (Lantus) 10 units SUB-Q QHS [facility] Last Admin: 11/13/17 23:17 Dose: Not Given Insulin Human Regular (Humulin R) 0 units SUB-Q [facility]; Protocol Last Admin: 11/14/17 09:01 Dose: Not Given Ondansetron HCl (Zofran) 4 mg IV Q8H PRN PRN Reason: Nausea And Vomiting Last Admin: 11/12/17 12:42 Dose: 4 mg Sodium Chloride (Sodium Chloride Flush Syringe 10 Ml) 10 ml IV BID [facility] Last Admin: 11/13/17 23:14 Dose: 10 ml Sodium Chloride (Sodium Chloride Flush Syringe 10 Ml) 10 ml IV PRN PRN PRN Reason: LINE FLUSH Sodium Hypochlorite (Dakin's Full Strength) 1 applic TP Q12H [facility] Last Admin: 11/14/17 01:35 Dose: 1 applicatio Physical Examination - Physical Exam Narrative exam: General appearance: somnolent in NAD, non conversant Eyes: anicteric sclerae, moist conjunctivae; no lid-lag; PERRLA HENT: Atraumatic; oropharynx limited Neck: Trachea midline; supple, no thyromegaly or lymphadenopathy Lungs: CTA, with normal respiratory effort and no intercostal retractions CV: RRR, no murmurs Abdomen: Soft, non-tender Extremities: right BKA stump w surg dressings, left heel stable eschar Skin: sacral with surg dressings Psych: somnolent. Neuro: somnolent Lines: No CVL / PICC - Constitutional Vitals: Vital Signs Temp Pulse Resp BP Pulse Ox 98.0 F 78 16 184/84 99 11/14/17 11:45 11/14/17 12:15 11/14/17 11:45 11/14/17 12:15 11/14/17 07:34 Temperature -Last 24 Hours Temperature 98.0 F Temperature 97.6 F Temperature 96.8 F Temperature 97.1 F Temperature 97.6 F Results - Labs CBC & Chem 7: 11/12/17 10:43 11/12/17 10:37 Labs: Abnormal lab results 11/13/17 11/14/17 Range/Units 12:20 07:38 POC Glucose 181 H 114 H (70-105) Assessment and Plan Assessment: 1) Sepsis: Present on admission, manifested by hypotension, leukocytosis. Etiology most likely multiple infected wounds. 2) Infected stage IV sacral ulcer with necrotic SQ tissue, fascia and bone involvement --S/P OR on 11/11/17 underwent excisional debridement, cultures grew ESBL Ecoli, Proteus MDR, GNR, E faecium 3) Right BKA stump infection with an abscess with bone exposure. -S/P OR on 11/11/17 underwent excisional debridement, cultures grew Proteus and MRSA 4) Acute encephalopathy 5) Hypertension 6) DM2 7) CVA 8) ESRD on HD 9) PAD s/p right BKA, Plan: -stop cefepime -start vancomycin renally dosed -start meropenem renally dosed -f/u final cultures report Thank you for your consultation, will follow up with you. Cayla Copeland MD Infectious Diseases Specialist [facility] ([facility] M [phone] O [phone]
--- NOTE | 2017-11-14 14:14 | Progress Note ---
Assessment and Plan - Patient Problems (1) Elevated troponin level Current Visit: Yes Status: Acute Plan to address problem: Nonspecific isolated troponin increase, will manage conservatively in the absence of cardiac symptoms. Subjective Date of service: 11/14/17 Principal diagnosis: esrd Interval history: Patient is comfortable, undergoing hemodialysis in progress. No new cardiac complaints. Objective Vital Signs Temp Pulse Pulse Resp Resp BP BP 11/14/17 14:00 82 173/79 11/14/17 13:45 79 166/72 11/14/17 13:30 78 177/75 11/14/17 13:15 80 186/67 11/14/17 13:00 78 176/77 11/14/17 12:45 83 174/70 11/14/17 12:43 98.0 F 78 16 197/82 11/14/17 12:30 78 176/68 11/14/17 12:15 78 184/84 11/14/17 12:00 77 188/80 11/14/17 11:45 98.0 F 79 16 199/82 11/14/17 10:00 74 18 11/14/17 07:34 73 146/33 11/14/17 07:32 97.6 F 74 16 207/69 11/14/17 05:10 68 16 176/47 11/14/17 00:25 96.8 F L 75 20 162/47 11/13/17 22:28 11/13/17 22:00 80 20 11/13/17 21:53 18 11/13/17 20:06 20 174/40 11/13/17 20:05 97.1 F L 72 20 11/13/17 19:11 66 11/13/17 16:15 97.6 F 18 173/139 Pulse Ox 11/14/17 14:00 11/14/17 13:45 11/14/17 13:30 11/14/17 13:15 11/14/17 13:00 11/14/17 12:45 11/14/17 12:43 11/14/17 12:30 11/14/17 12:15 11/14/17 12:00 11/14/17 11:45 11/14/17 10:00 11/14/17 07:34 99 11/14/17 07:32 100 11/14/17 05:10 100 11/14/17 00:25 98 11/13/17 22:28 100 11/13/17 22:00 11/13/17 21:53 11/13/17 20:06 11/13/17 20:05 100 11/13/17 19:11 11/13/17 16:15 - Physical Examination General: No Apparent Distress HEENT: Positive: PERRL Neck: Positive: neck supple Cardiac: Positive: Reg Rate and Rhythm Lungs: Positive: Decreased Breath Sounds Neuro: Positive: Grossly Intact Abdomen: Positive: Soft Skin: Positive: Clear Extremities: Absent: edema
--- NOTE | 2017-11-14 14:48 | Progress Note ---
Assessment and Plan Assessment and plan: Patient is 57 yo woman from [place] with a h/o hypertension, IDDM, CVA, ESRD on HD, PAD s/p right BKA, * pCXR reported blunting of the right costophrenic angle suggesting small pleural effusion or chronic pleural reaction, Cardiomegaly * CTH wo contrast reported small vessell ischemic changes, no acute intracranial process noted, no change, stable chronic sinusitis -Sepsis from infected pressure ulcer, leg/stomp ulcers with cellulitis and abscess, poa: iv abx, wound care consult, OR once Cardiology clears -Stomp infection with kasandra still in place: wound care consulted s/p debribement -Elevated troponins, nonspecific: Cardiology ev -ESRD on HD: consult Nephrology -Acute on chronic anemia of chronic disease: blood transfusion with HD -IDDM with hyperglycemia: add ssi, ada -Severe protein calorie malnutriton, poa: consult Commercial Loan Administrator -Functional quadriplegia, poa, suspected: consult PT "Date of procedure: 11/11/17 Pre-op diagnosis: unstageable infected sacral decubitus ulcer, wound of R BKA stump Post-op diagnosis: other (infected stage 4 sacral decubitus ulcer, necrotic soft tissue infection R BKA stump wound) Findings: 1. stage 4 sacral decubitus wound with necrotic subcutaneous tissue, fascia, and bone involvement 2. Necrotic soft tissue infection of BKA stump with exposed bone Procedure: 1. Excisional debridement of infected sacral decubitus wound 2. Excisional debridement of necrotizing soft tissue infection R BKA stump wound Anesthesia: GETA Surgeon: NATASHA HANSEN Estimated blood loss: other (25cc) Pathology: list (1. bone culture sacrum, 2. tissue culture sacrum, 3. tissue culture R BKA stump) Specimen disposition: to lab Condition: stable Disposition: PACU Addendum entered and electronically signed by NATASHA HANSEN DO 11/11/17 19:01: Sacral wound measurement : 13cm x 10cm x 3cm (d) R BKA stump wound: 15cm x 6 cm x 5 cm (d)" Renal function, WBC levels are improved Wound culture results with multiple organisms===>consulted ID to manage d/w Dr. Hansen: patient needs wound vac SNF placement on Tuesday. Awaiting for SNF placement History Interval history: Patient was seen and examined. Follow-up on current diagnosis AMS. Overnight uneventful. Patient is not talking to me today. Imaging, nursing note, chart, labs and old chart reviewed. Discussed with daughter Fransisco and gave her update Hospitalist Physical - Physical exam Narrative exam: GEN: chronically debilated, ill appearing NAD, Awake, Alert, Orientated HEENT: NCAT, EOMI, PERRL, OP Clear NECK: supple, no adenopathy, no thyromegaly, no JVD CVS/HEART: RRR, normal S1S2, pulses present bilaterally CHEST/LUNGS: CTA B, Symmetrical chest expansion, good air entry bilaterally GI/Abdomen: soft, NTND, good bowel sounds, no guarding or rebound /Bladder: no suprapubic tenderness, no CVA or paraspinal tenderness EXT/Skin: surg dsg intact MSK: right aka, Neuro: CN 2-12 grossly intact, no new focal deficits Psych: calm - Constitutional Vitals: Temp Pulse Resp BP Pulse Ox 98.0 F 820 H 16 171/57 99 11/14/17 12:43 11/14/17 14:30 11/14/17 12:43 11/14/17 14:30 11/14/17 07:34 General appearance: Present: no acute distress, other (Alert and oriented 3) Results - Labs CBC & Chem 7: 11/12/17 10:43 11/12/17 10:37 Labs: Laboratory Last Values WBC 11.7 K/mm3 (4.5-11.0) H 11/12/17 10:43 RBC 3.09 M/mm3 (3.65-5.03) L 11/12/17 10:43 Hgb 8.4 gm/dl (10.1-14.3) L 11/12/17 10:43 Hct 27.1 % (30.3-42.9) L 11/12/17 10:43 MCV 88 fl (79-97) 11/12/17 10:43 MCH 27 pg (28-32) L 11/12/17 10:43 MCHC 31 % (30-34) 11/12/17 10:43 RDW 18.5 % (13.2-15.2) H 11/12/17 10:43 Plt Count 204 K/mm3 (140-440) 11/12/17 10:43 Lymph % (Auto) 8.5 % (13.4-35.0) L 11/09/17 09:44 [place] % (Auto) 6.4 % (0.0-7.3) 11/09/17 09:44 Eos % (Auto) 1.5 % (0.0-4.3) 11/09/17 09:44 Baso % (Auto) 0.4 % (0.0-1.8) 11/09/17 09:44 Lymph # 1.0 K/mm3 (1.2-5.4) L 11/09/17 09:44 [place] # 0.8 K/mm3 (0.0-0.8) 11/09/17 09:44 Eos # 0.2 K/mm3 (0.0-0.4) 11/09/17 09:44 Baso # 0.0 K/mm3 (0.0-0.1) 11/09/17 09:44 Seg Neutrophils % 83.2 % (40.0-70.0) H 11/09/17 09:44 Seg Neutrophils # 9.8 K/mm3 (1.8-7.7) H 11/09/17 09:44 PT 16.8 Sec. (12.2-14.9) H 11/07/17 15:11 INR 1.29 (0.87-1.13) H 11/07/17 15:11 APTT 39.4 Sec. (24.2-36.6) H 11/07/17 15:11 Sodium 137 mmol/L (137-145) 11/12/17 10:37 Potassium 3.2 mmol/L (3.6-5.0) L 11/12/17 10:37 Chloride 98.6 mmol/L (98-107) 11/12/17 10:37 Carbon Dioxide 25 mmol/L (22-30) 11/12/17 10:37 Anion Gap 17 mmol/L 11/12/17 10:37 BUN 18 mg/dL (7-17) H 11/12/17 10:37 Creatinine 2.3 mg/dL (0.7-1.2) H 11/12/17 10:37 Estimated GFR 27 ml/min 11/12/17 10:37 BUN/Creatinine Ratio 8 % 11/12/17 10:37 Glucose 150 mg/dL (65-100) H 11/12/17 10:37 POC Glucose 130 (70-105) H 11/14/17 11:54 Lactic Acid 1.00 mmol/L (0.7-2.0) 11/08/17 01:47 Calcium 9.2 mg/dL (8.4-10.2) 11/12/17 10:37 Total Bilirubin 0.30 mg/dL (0.1-1.2) 11/07/17 15:11 AST 6 units/L (5-40) 11/07/17 15:11 ALT < 5 units/L (7-56) L 11/07/17 15:11 Alkaline Phosphatase 155 units/L (35-129) H 11/07/17 15:11 Total Creatine Kinase 18 units/L (30-135) L 11/08/17 01:47 CK-MB (CK-2) 1.4 ng/mL (0.0-4.0) 11/08/17 01:47 CK-MB (CK-2) Rel Index 7.7 (0-4) H 11/08/17 01:47 Troponin T 2.250 ng/mL (0.00-0.029) H* 11/08/17 09:04 NT-Pro-B Natriuret Pep > 10627 pg/mL (0-900) H 11/07/17 15:11 Total Protein 5.6 g/dL (6.3-8.2) L 11/07/17 15:11 Albumin 2.6 g/dL (3.9-5) L 11/07/17 15:11 Albumin/Globulin Ratio 0.9 % 11/07/17 15:11 Triglycerides 175 mg/dL (2-149) H 11/07/17 15:11 Cholesterol 114 mg/dL (50-199) 11/07/17 15:11 LDL Cholesterol Direct 40 mg/dL (50-130) L 11/07/17 15:11 HDL Cholesterol 33 mg/dL (40-59) L 11/07/17 15:11 Cholesterol/HDL Ratio 3.45 % 11/07/17 15:11 TSH 3.420 mlU/mL (0.270-4.200) 11/07/17 15:11 Free T4 1.19 ng/dL (0.76-1.46) 11/07/17 15:11 Random Vancomycin 14.3 ug/mL (0-40.0) 11/10/17 13:37 Blood Type B POSITIVE 11/08/17 01:47 Antibody Screen Negative 11/08/17 01:47 Crossmatch See Detail 11/08/17 01:47
[2017-11-14] MEDS: PROCRIT IV PRN (14:58)
[2017-11-14] MEDS ORDERED: NACL 0.9% 1000 ML 2,000 ML ONE (16:10)
[2017-11-14] MEDS: SODIUM CHLORIDE FLUSH SYRINGE 10 ML IV SCH (16:17)
[2017-11-14] MEDS: MAXIPIME 2 GM in NACL 0.9% 20 ML IV SCH (16:17)
[2017-11-14] MEDS ORDERED: VANCOMYCIN PHARMACY TO DOSE IV SCH (20:00)
[2017-11-14] MEDS ORDERED: VANCOMYCIN VIAL 1,000 MG in NACL 0.9% 100 ML IV SCH (20:00)
[2017-11-14] MEDS ORDERED: VANCOMYCIN 1,500 MG in NACL 0.9% 500 ML 500 ML IV ONE (20:00)
[2017-11-15] MEDS: HumuLIN R SUB-Q SCH ×5 (00:37→22:03)
[2017-11-15] MEDS: LANTUS SUB-Q SCH ×2 (00:37→22:03)
[2017-11-15] MEDS: SODIUM CHLORIDE FLUSH SYRINGE 10 ML IV SCH ×3 (00:38→21:45)
[2017-11-15] MEDS: MERREM 1,000 MG in NACL 0.9% 100 ML IV SCH ×2 (01:30→10:55)
[2017-11-15 07:52] LABS: Basophils % (Auto) 0.2 % (0.0-1.8); Eosinophils % (Auto) 0.2 % (0.0-4.3); Hematocrit 30.5 % (30.3-42.9); Hemoglobin 9.5 gm/dl (10.1-14.3); Lymphocytes # (Auto) 1.2 K/mm3 (1.2-5.4); Lymphocytes % (Auto) 7.6 % (13.4-35.0); Mean Corpuscular HGB Conc 31 % (30-34); Mean Corpuscular Hemoglobin 28 pg (28-32); Mean Corpuscular Volume 89 fl (79-97); Monocytes # (Auto) 0.8 K/mm3 (0.0-0.8); Monocytes % (Auto) 4.9 % (0.0-7.3); Platelet Count 202 K/mm3 (140-440); Red Blood Count 3.44 M/mm3 (3.65-5.03); Red Cell Distribution Width 18.4 % (13.2-15.2)
[2017-11-15 08:20] LABS: Calcium 9.7 mg/dL (8.4-10.2)
--- NOTE | 2017-11-15 09:48 | Progress Note ---
Assessment and Plan Impression: * End stage renal disease on hemodialysis * Relative hypotension w/ hx of hypertension * AMS * Elevated troponin * hypokalemia * Anemia secondary to ESRD * Peripheral artery disease s/p BKA * Wound infection - GNR Plan: * Continue HD MWF - UF as tolerated * cardiology notes reviewed; * increase k bath with hd * Abx per primary team * Blood cx are NGTD * Epogen TIW prn * Transfuse pRBC prn * Renal diet Subjective Date of service: 11/15/17 Principal diagnosis: esrd Interval history: resting well in bed today Objective - Exam Narrative Exam: GEN: chronically debilated, ill appearing NAD, Awake, Alert, Orientated x3 with hints HEENT: NCAT, EOMI, PERRL, OP Clear NECK: supple, no adenopathy, no thyromegaly, no JVD CVS/HEART: RRR, normal S1S2, pulses present bilaterally CHEST/LUNGS: CTA B, Symmetrical chest expansion, good air entry bilaterally GI/Abdomen: soft, NTND, good bowel sounds, no guarding or rebound /Bladder: no suprapubic tenderness, no CVA or paraspinal tenderness EXT/Skin: necrotic left foot, unstageable deep sacral ulcer MSK: right aka, Neuro: CN 2-12 grossly intact, no new focal deficits Psych: calm - Vital Signs Vital signs: Vital Signs - 12hr 11/15/17 11/15/17 01:40 06:18 Temperature 98.2 F Pulse Rate 93 H 91 H Respiratory 20 18 Rate Blood Pressure 171/76 144/60 [Right] - Lab 11/15/17 06:54 11/15/17 06:54 Most recent lab results Calcium 9.7 mg/dL (8.4-10.2) 11/15/17 06:54
[2017-11-15] MEDS: ASPIRIN PO SCH (10:00)
--- NOTE | 2017-11-15 10:51 | Discharge Summary ---
Providers - Providers Date of Admission: 11/07/17 23:06 Date of discharge: 11/15/17 Attending physician: DONITA MAGUIRE 11/07/17 22:35 Consult to Physician [CONS] Stat Comment: Consulting Provider: ARNEL PARKER Physician Instructions: Reason For Exam: Dialysis 11/07/17 23:20 Consult to Wound/ET Nurse [CONS] Routine Reason For Exam: wound eval 11/07/17 23:46 Consult to Cardiology [CONS] Routine Consulting Provider: CAMMIE BAUMAN Reason For Exam: elevated troponin 11/08/17 09:10 Consult to Physician [CONS] Routine Comment: Consulting Provider: CHARITY LUDWIG Physician Instructions: Reason For Exam: ESRD 11/08/17 14:21 Consult to Physician [CONS] Urgent Comment: PHYSICIAN NOTIFIED Consulting Provider: NATASHA HANSEN Physician Instructions: PLEASE EVALUATE FOR DEBRIDEMENT Reason For Exam: EVAL FOR DEBRIDEMENT SACRAL/RIGHT STUMP 11/08/17 14:33 Consult to Dietitian/Nutrition [CONS] Routine Physician Instructions: Reason For Exam: Reason for Consult: poor wound healing 11/14/17 08:31 Consult to Physician [CONS] Routine Comment: Consulting Provider: SALLIE BOJORQUEZ Physician Instructions: Reason For Exam: sepsis 11/14/17 08:36 Consult to Case Management [CONS] Routine Services Needed at Discharge: Wound Vac Notified:: nadira Primary care physician: GIS TECHNICIAN Hospitalization Reason for admission: metabolic encephalopathy, end-stage renal disease, sepsis , diabetes, Condition: Stable Pertinent studies: none Procedures: Debridement of stage IV sacral decubitus ulcer and right BKA stump Hospital course: Patient is a 57 year old -[place] female with history of end-stage renal disease on hemodialysis, a resident of detention who was brought to the ED on account of altered mental status. Patient was a poor historian, so hx was obtained from the chart. It was reported that the patient became altered during dialysis, so she was brought to the ED for further evaluation. No reported history of fever, chest pain or shortness of breath. Patient had a stage IV sacral decubitus ulcer on admission with infected right below knee amputation stump. There were necrotizing tissues. Surgical consult was obtained. Debridement was done. Escherichia coli was grown from the second dose or some specimen. Proteus was also grown from the right. Amputation stump. ID consult was obtained. Patient was placed on appropriate antibiotics. Patient was continued on hemodialysis labs on admission and control of high blood pressure. Presented to him of his discharge has no fever , no tachycardia or tachypnea. However has slight elevation of white blood cell. Will therefore definitely be discharging her back to longterm facility with [facility]. Disposition: DC/TX-03 SNF W [facility] C[facility] Time spent for discharge: 40 mins - Discharge Diagnoses (1) Metabolic encephalopathy Status: Acute (2) CHF (congestive heart failure) Status: Acute Qualifiers: Heart failure type: unspecified Heart failure chronicity: unspecified Qualified Code(s): I50.9 - Heart failure, unspecified (3) Decubitus ulcer of sacral region, unstageable Status: Acute (4) Delayed surgical wound healing of [id number] amputation stump Status: Acute (5) ESRD needing dialysis Status: Acute (6) Elevated troponin level Status: Acute (7) Acute hyperglycemia Status: Acute Core Measure Documentation - Palliative Care Palliative Care/ Comfort Measures: Not Applicable Exam - Physical Exam Narrative exam: Constitutional: Well-nourished well-developed. In no distress Head: Normocephalic atraumatic Eyes: Pupils are equal round and reactive to light Nose: No enlarged turbinates, no septal deviation. Mouth: Moist mucous membranes. Neck: Supple no thyromegaly. No bruit. No JVD Heart: Regular rate and rhythm, S1-S2 abnormal. No rubs murmurs or gallop Lungs: Clear to auscultation bilaterally no rales or rhonchi Abdomen: Soft, nontender. Bowel sound are present. Extremities: No edema no cyanosis and no clubbing. Neuro: Alert oriented Oriented x3. No focal sensory or motor deficit. Skin: No rashes no hyperemic spots Psychiatry: Euthymic. Calm. - Constitutional Vitals: Temp Pulse Resp BP Pulse Ox 98.2 F 91 H 18 144/60 100 11/15/17 06:18 11/15/17 06:18 11/15/17 06:18 11/15/17 06:18 11/14/17 20:40 Plan Activity: fall precautions Weight Bearing Status: Non-Weight Bearing Follow up with: PRIMARY CARE, [Primary Care Provider] - 3-5 Days Prescriptions: Aspirin [Aspirin TAB] 81 mg PO QDAY #30 tablet HYDROcodone/APAP 5-325 [[place] 5-325 mg TAB] 1 each PO Q6H PRN #18 tablet PRN Reason: Pain, Moderate (4-6) Linezolid [Zyvox] 600 mg PO BID #28 tablet
--- NOTE | 2017-11-15 12:46 | Progress Note ---
Assessment and Plan Altered mental status ESRD on HD Anemia s/p transfusion of PRBCs Hypertension DM PVD s/p right BKA lower extremity wound debridement Elevated troponin No ischemia on MPI this admission Echocardiogram reports a mild to moderate mitral regurgitation a moderate tricuspid regurgitation. There is also evidence of moderate pulmonary hypertension, RVSP at 60mmHg. Ejection fraction 45-50%. Conservative cardiac management. Subjective Date of service: 11/15/17 Principal diagnosis: esrd Interval history: Patient denies chest pain and shortness of breath. No distress noted. Objective Vital Signs Temp Pulse Resp BP BP Pulse Ox 11/15/17 10:00 17 97 11/15/17 08:02 97.4 F L 90 18 165/70 96 11/15/17 06:18 98.2 F 91 H 18 144/60 11/15/17 05:34 19 144/60 11/15/17 01:40 93 H 20 171/76 11/14/17 20:40 96.8 F L 86 22 181/78 100 11/14/17 20:34 88 186/78 100 11/14/17 20:33 181/78 11/14/17 20:29 100 11/14/17 20:20 86 18 11/14/17 16:50 98.2 F 83 16 141/55 100 11/14/17 15:15 98.0 F 71 16 159/59 11/14/17 15:00 83 137/73 11/14/17 14:45 81 153/58 11/14/17 14:30 82 171/57 11/14/17 14:15 78 143/69 11/14/17 14:00 82 173/79 11/14/17 13:45 79 166/72 11/14/17 13:30 78 177/75 11/14/17 13:15 80 186/67 11/14/17 13:00 78 176/77 11/14/17 12:45 83 174/70 - Physical Examination General: No Apparent Distress HEENT: Positive: PERRL Cardiac: Positive: Reg Rate and Rhythm Extremities: Absent: edema - Labs and Meds CBC 11/15/17 Range/Units 06:54 WBC 16.3 H (4.5-11.0) K/mm3 RBC 3.44 L (3.65-5.03) M/mm3 Hgb 9.5 L (10.1-14.3) gm/dl Hct 30.5 (30.3-42.9) % Plt Count 202 (140-440) K/mm3 Lymph # 1.2 (1.2-5.4) K/mm3 [place] # 0.8 (0.0-0.8) K/mm3 Eos # 0.0 (0.0-0.4) K/mm3 Baso # 0.0 (0.0-0.1) K/mm3 Comprehensive Metabolic Panel 11/15/17 Range/Units 06:54 Sodium 143 (137-145) mmol/L Potassium 4.0 D (3.6-5.0) mmol/L Chloride 97.7 L (98-107) mmol/L Carbon Dioxide 23 (22-30) mmol/L BUN 17 (7-17) mg/dL Creatinine 2.3 H (0.7-1.2) mg/dL Glucose 162 H (65-100) mg/dL Calcium 9.7 (8.4-10.2) mg/dL
[2017-11-15] MEDS ORDERED: ADRENALIN ONE (14:44)
[2017-11-15] MEDS ORDERED: SODIUM BICARBONATE IV ONE (14:44)
--- NOTE | 2017-11-15 14:53 | Progress Note ---
Assessment and Plan Assessment: 1) Sepsis: leukocytosis up today. Etiology most likely multiple infected wounds. 2) Infected stage IV sacral ulcer with necrotic SQ tissue, fascia and bone involvement --S/P OR on 11/11/17 underwent excisional debridement, cultures grew ESBL Ecoli, Proteus MDR, GNR, E faecium 3) Right BKA stump infection with an abscess with bone exposure. -S/P OR on 11/11/17 underwent excisional debridement, cultures grew Proteus and MRSA 4) Acute encephalopathy 5) Hypertension 6) DM2 7) CVA 8) ESRD on HD 9) PAD s/p right BKA, Plan: -place arm PICC - ok with renal -continue vancomycin and meropenem renally dosed -upon discharge will do vancomycin 1 g IV q48h on HD and meropenem 500 mg IV q day via PICC total 6 weeks until 12/26/17 -monitor leukocytosis - it is up ? left foot gangrene if not better consult vascular Thank you for your consultation, will follow up with you. Cayla Copeland MD Infectious Diseases Specialist [facility] M [phone] O [phone] Subjective Date of service: 11/15/17 Principal diagnosis: esrd Interval history: No acute events non verbal no fever. Microbiology: Blood cultures: 11/08 neg Urine cultures: Respiratory cultures: Wound cultures: Sacral 11/07 ESBL Ecoli, Proteus MDR Back 11/11 GNR, E faecium Bone Proteus, Enterococcus durans BKA stump 11/11 Proteus and MRSA Stool cultures: Other: Current Antimicrobials: meropenem 11/14 vanco 11/14 Previous Antimicrobials: cefepime Objective - Exam Narrative Exam: General appearance: somnolent in NAD, non conversant Eyes: anicteric sclerae, moist conjunctivae; no lid-lag; PERRLA HENT: Atraumatic; oropharynx limited Neck: Trachea midline; supple, no thyromegaly or lymphadenopathy Lungs: CTA, with normal respiratory effort and no intercostal retractions CV: RRR, no murmurs Abdomen: Soft, non-tender Extremities: right BKA stump w surg dressings, left heel stable eschar Skin: sacral with surg dressings Psych: somnolent. Neuro: somnolent Lines: No CVL / PICC - Constitutional Vitals: Vital Signs Temp Pulse Resp BP Pulse Ox 97.4 F L 86 18 180/57 98 11/15/17 11:54 11/15/17 11:54 11/15/17 11:54 11/15/17 11:54 11/15/17 11:54 Temperature -Last 24 Hours Temperature 97.4 F Temperature 97.4 F Temperature 98.2 F Temperature 96.8 F Temperature 98.2 F Temperature 98.0 F - Labs CBC & Chem 7: 11/15/17 06:54 11/15/17 06:54 Labs: Abnormal lab results 11/14/17 11/14/17 11/14/17 Range/Units 17:02 20:14 22:33 WBC (4.5-11.0) K/mm3 RBC (3.65-5.03) M/mm3 Hgb (10.1-14.3) gm/dl RDW (13.2-15.2) % Lymph % (Auto) (13.4-35.0) % Seg Neutrophils % (40.0-70.0) % Seg Neutrophils # (1.8-7.7) K/mm3 Chloride (98-107) mmol/L Creatinine (0.7-1.2) mg/dL Glucose (65-100) mg/dL POC Glucose 142 H 162 H (70-105) C-Reactive Protein 13.40 H (0.00-1.30) mg/dL 11/15/17 11/15/17 11/15/17 Range/Units 05:33 06:54 06:54 WBC 16.3 H (4.5-11.0) K/mm3 RBC 3.44 L (3.65-5.03) M/mm3 Hgb 9.5 L (10.1-14.3) gm/dl RDW 18.4 H (13.2-15.2) % Lymph % (Auto) 7.6 L (13.4-35.0) % Seg Neutrophils % 87.1 H (40.0-70.0) % Seg Neutrophils # 14.2 H (1.8-7.7) K/mm3 Chloride 97.7 L (98-107) mmol/L Creatinine 2.3 H (0.7-1.2) mg/dL Glucose 162 H (65-100) mg/dL POC Glucose 160 H (70-105) C-Reactive Protein (0.00-1.30) mg/dL 11/15/17 Range/Units 12:04 WBC (4.5-11.0) K/mm3 RBC (3.65-5.03) M/mm3 Hgb (10.1-14.3) gm/dl RDW (13.2-15.2) % Lymph % (Auto) (13.4-35.0) % Seg Neutrophils % (40.0-70.0) % Seg Neutrophils # (1.8-7.7) K/mm3 Chloride (98-107) mmol/L Creatinine (0.7-1.2) mg/dL Glucose (65-100) mg/dL POC Glucose 180 H (70-105) C-Reactive Protein (0.00-1.30) mg/dL
[2017-11-15] MEDS: DAKIN'S FULL STRENGTH TP SCH ×2 (15:05→19:42)
[2017-11-15 20:05] VITALS: BP 115/50
--- NOTE | 2017-11-16 00:08 | Event Note ---
Date: 11/15/17 (intubation note) : Code blue called overhead Arrived patient was pulseless and apneic Intubation note: 11/15/17 6020 Emergent consent Respiratory and cardiac arrest No medications 2 attempts with Mac4, 7.5 ETT Placed on second attempt. Secured 22 at the lip. Confirmed with color change, bilateral breath sounds, R>L and absent BS over epigastrium Myles Childers MD
--- NOTE | 2017-11-16 07:00 | Event Note ---
Date: 11/15/17 CODE MELI CALLED OVERHEAD , ON ARRIVAL AT THE SITE, CPR IN PROGRESS AND PATIENT INTUBATED BY ED DOCTOR . RESUSCITATION CARRIED OUT FOR ABOUT 40 MINUTES WITH FULL ACLS PROTOCOL OBSERVED , FAMILY NOTIFIED DURING CPR AND CPR ENDED AT 12:16A.M. PATIENT PRONOUNCED AT 12:16 A.M.
[2017-11-16] MEDS ORDERED: VANCOMYCIN/NS 1 GM/250 ML 1 GM/250 ML BAG IV SCH (20:00)
== END 2017-11-16 00:16 | DRG 500 ==
LOC: ED 13:56 → 4A 23:06 → 3A 11-15 23:33
PROVIDERS: ADMIT Internal Medicine; ATTEND Family Medicine
PROC: 5A12012 Performance of Cardiac Output, Single, Manual (ICD-10-PCS; 2017-11-08)
PROC: 0BH17EZ Insertion of Endotracheal Airway into Trachea, Via Natural or Artificial Opening (ICD-10-PCS; 2017-11-08)
PROC: 30243N1 Transfusion of Nonautologous Red Blood Cells into Central Vein, Percutaneous Approach (ICD-10-PCS; 2017-11-08)
PROC: 5A1D70Z Performance of Urinary Filtration, Intermittent, Less than 6 Hours Per Day (ICD-10-PCS; 2017-11-09)
PROC: 0QB10ZZ Excision of Sacrum, Open Approach (ICD-10-PCS; principal; 2017-11-11)
PROC: 0KBS0ZZ Excision of Right Lower Leg Muscle, Open Approach (ICD-10-PCS; 2017-11-11)
PROC: 5A1D70Z Performance of Urinary Filtration, Intermittent, Less than 6 Hours Per Day (ICD-10-PCS; 2017-11-11)
PROC: 5A1D70Z Performance of Urinary Filtration, Intermittent, Less than 6 Hours Per Day (ICD-10-PCS; 2017-11-14)
DX: T87.43 Infection of amputation stump, right lower extremity (principal); A41.9 Sepsis, unspecified organism; L89.154 Pressure ulcer of sacral region, stage 4; N18.6 End stage renal disease; G93.41 Metabolic encephalopathy; E43 Unspecified severe protein-calorie malnutrition; R53.2 Functional quadriplegia; I13.2 Hypertensive heart and chronic kidney disease with heart failure and with stage 5 chronic kidney disease, or end stage renal disease; E11.22 Type 2 diabetes mellitus with diabetic chronic kidney disease; E11.51 Type 2 diabetes mellitus with diabetic peripheral angiopathy without gangrene; D64.9 Anemia, unspecified; E11.65 Type 2 diabetes mellitus with hyperglycemia; E87.6 Hypokalemia; D63.1 Anemia in chronic kidney disease; J32.9 Chronic sinusitis, unspecified; E87.70 Fluid overload, unspecified; I50.9 Heart failure, unspecified; Z89.511 Acquired absence of right leg below knee; Z86.73 Personal history of transient ischemic attack (TIA), and cerebral infarction without residual deficits; Z68.24 Body mass index [BMI] 24.0-24.9, adult; Z79.4 Long term (current) use of insulin; Z79.899 Other long term (current) drug therapy; Z90.710 Acquired absence of both cervix and uterus
CPT/HCPCS: 36415; 70450; 71045; 78452; 80048; 80053; 80061; 80202; 82140; 82550; 82553; 82962; 83880; 84439; 84443; 84484; 85014; 85018; 85025; 85027; 85610; 85730; 86140; 86850; 86900; 86901; 86920; 87040; 87076; 87116; 87186; 92950; 93005; 93010; 93017; 93306; 94760; 96365; A9502; J0171; J0692; J0885; J1170; J1644; J1815; J2185; J2270; J2370; J2405; J2704; J2785; J3010; J3370; J7030; J7040; P9016